=== PATIENT | male | born 1955 | race Caucasian/White ===

== ENCOUNTER → 2016-09-28 | Outpatient (CLI) | payer OTHER ==
[~2016-09-28] MED LIST: BACT800T5 PO
--- NOTE | 2016-09-28 16:49 | REP ---
Chest x-ray: Two views: History: Psoriasis vulgaris. Comparison chest x-ray 11/24/2014. Findings: There is new blunting of the left lateral pleural angle consistent with a small left subpulmonic pleural effusion. There is linear plate-like atelectasis versus fissural thickening in the left mid lung zone. A nodular density is seen in the left base, 8 mm in diameter. This has been seen previously. Chest CT study from 12/06/2014 reported no pulmonary nodule. The density is visible in the left posterior 9th rib. This is seen to be a bone island in the left 9th rib on that CT study. In any event it is unchanged. Lung ervin are otherwise clear. Impression: New subpulmonic left pleural effusion with fissural thickening and mild discoid atelectasis in the left midlung zone. Signed by Anthony Barron MD 09/28/2016 05:04 P
== END ==
LOC: M RAD 14:46
PROVIDERS: ATTEND Nurse Practitioner Family
DX: L40.0 Psoriasis vulgaris (principal); Z51.81 Encounter for therapeutic drug level monitoring; Z79.899 Other long term (current) drug therapy

== ENCOUNTER → 2016-10-23 | Outpatient (REF) | payer OTHER ==
[2016-10-23 16:37] LABS: INR 0.97
[2016-10-23 17:00] LABS: ALBUMIN 3.8 GM/DL (3.2-5.2); ALKALINE PHOSPHATASE 127 U/L (45-117); ALT/SGPT 30 U/L (12-78); ANION GAP 7 MEQ/L (8-16); AST/SGOT 18 U/L (15-37); BILIRUBIN,TOTAL 0.5 MG/DL (0.2-1.0); BLOOD UREA NITROGEN 15 MG/DL (7-18); CALCIUM LEVEL 9.1 MG/DL (8.5-10.1); CARBON DIOXIDE LEVEL 30 MEQ/L (21-32); CHLORIDE LEVEL 105 MEQ/L (98-107); CREATININE FOR GFR 1.08 MG/DL (0.70-1.30); GLOMERULAR FILTRATION RATE > 60.0 (>56); GLUCOSE, FASTING 87 MG/DL (70-105); POTASSIUM SERUM 4.5 MEQ/L (3.5-5.1); SODIUM LEVEL 142 MEQ/L (136-145); TOTAL PROTEIN 7.6 GM/DL (6.4-8.2)
[2016-10-23 17:45] LABS: MEAN CORPUSCULAR HEMOGLOBIN 29.4 pg (27.0-33.0); MEAN CORPUSCULAR HGB CONC 32.6 g/dl (32.0-36.5); MEAN CORPUSCULAR VOLUME 90.2 fl (80.0-96.0); RED CELL DISTRIBUTION WIDTH 13.4 % (11.5-14.5); WHITE BLOOD COUNT 8.5 K/mm3 (4.0-10.0)
== END ==
LOC: M SFHCADAM 14:11
PROVIDERS: ATTEND Family Medicine
DX: R91.8 Other nonspecific abnormal finding of lung field (principal); R06.09 Other forms of dyspnea

== ENCOUNTER → 2016-10-25 | Outpatient (CLI) | payer OTHER ==
[~2016-10-25] MED LIST changes: +ISOVUE-370 76% 100ML VIAL (Q9967) As Ordered ONE
--- NOTE | 2016-10-25 17:28 | REP ---
Clinical: Left lower chest pain. Technique: Axial contrast enhanced images from the thoracic inlet to the upper abdomen using 100 ml Isovue 370 intravenous contrast material with coronal and sagittal re-formations. Comparison: 12/06/2014 Findings: Hncoxjpj-ty-rzquy left pleural effusion with left lower lobe compressive atelectasis as well as plate-like atelectasis in the lingula. Right hemithorax appears well aerated and clear. No obvious pulmonary embolus. No pneumothorax. Heart and pericardium appear normal. No obvious axillary, hilar, or mediastinal adenopathy. Thoracic aorta is normal. Musculoskeletal structures are intact. Impression: Qucapwqs-du-csfgl left pleural effusion with left lower lobe and lingular atelectasis. No obvious pulmonary embolus. Signed by Rodrigo Lawson MD 10/25/2016 05:19 P
== END ==
LOC: M RAD 16:46
PROVIDERS: ATTEND Family Medicine
DX: J94.0 Chylous effusion (principal); J98.11 Atelectasis

== ENCOUNTER → 2016-11-06 | Outpatient (CLI) | payer OTHER ==
[~2016-11-06] MED LIST changes: +ACETAMINOPHEN 325 MG TAB As Ordered ONE; -ISOVUE-370 76% 100ML VIAL (Q9967) As Ordered ONE
--- NOTE | 2016-11-06 14:21 | REP ---
CHEST X-RAY: Two views. HISTORY: Post thoracentesis, left-sided effusion. Comparison chest x-ray September 28, 2016. Comparison chest CT study October 25, 2016. FINDINGS: The left pleural effusion appears improved. There is no evidence of pneumothorax or other complication. There is some linear discoid atelectasis and/or fibrosis in the left midlung zone. No other significant finding. Heart is not enlarged. IMPRESSION: Improved left pleural effusion post thoracentesis. No complication seen. Signed by Anthony Barron MD 11/06/2016 04:43 P
[2016-11-06 14:40] LABS: RBC PLEURAL FLUID < 10 (<10mm3 cells/uL); TNC PLEURAL FLUID 673 cells/uL (0-20)
[2016-11-06 14:43] LABS: BF DIFF IF INDICATED? YES (NO)
[2016-11-06 14:44] LABS: LDH, BODY FLUID 164 U/L (NOT ESTABLISHED); TOTAL PROTEIN, BODY FLUID 5.1 G/DL (NOT ESTABLISHED)
[2016-11-06 14:48] LABS: CC BF DIFF EXAM CYTOCENTRIFUGE
[2016-11-06 15:06] LABS: BASO % 0.5 % (0.0-1.0); EOS # 0.1 K/mm3 (0.0-0.50); EOS % 0.7 % (0.0-3.0); LARGE UNSTAINED CELL # 0.1 K/mm3 (0.0-0.4); LARGE UNSTAINED CELL % 0.6 % (0.0-4.0); LYMPH # 1.4 K/mm3 (1.5-4.5); LYMPH % 12.3 % (24.0-44.0); MEAN CORPUSCULAR HEMOGLOBIN 29.6 pg (27.0-33.0); MEAN CORPUSCULAR HGB CONC 33.1 g/dl (32.0-36.5); MEAN CORPUSCULAR VOLUME 89.2 fl (80.0-96.0); MONO # 0.6 K/mm3 (0.0-0.8); MONO % 5.4 % (0.0-5.0); NEUTROPHILS # 8.8 K/mm3 (1.8-7.7); NEUTROPHILS % 80.5 % (36.0-66.0); PLATELET COUNT, AUTOMATED 327 k/mm3 (150-450); RED CELL DISTRIBUTION WIDTH 13.3 % (11.5-14.5); WHITE BLOOD COUNT 10.9 K/mm3 (4.0-10.0)
[2016-11-06 15:20] LABS: ALBUMIN 3.6 GM/DL (3.2-5.2); ALBUMIN/GLOBULIN RATIO 1.16 (1.00-1.93); ALKALINE PHOSPHATASE 109 U/L (45-117); ALT/SGPT 23 U/L (12-78); ANION GAP 8 MEQ/L (8-16); AST/SGOT 18 U/L (15-37); BILIRUBIN,TOTAL 0.6 MG/DL (0.2-1.0); BLOOD UREA NITROGEN 18 MG/DL (7-18); CALCIUM LEVEL 8.7 MG/DL (8.5-10.1); CARBON DIOXIDE LEVEL 28 MEQ/L (21-32); CHLORIDE LEVEL 104 MEQ/L (98-107); CREATININE FOR GFR 1.06 MG/DL (0.70-1.30); GLOMERULAR FILTRATION RATE > 60.0 (>56); GLUCOSE, FASTING 95 MG/DL (70-105); POTASSIUM SERUM 4.7 MEQ/L (3.5-5.1); SODIUM LEVEL 140 MEQ/L (136-145); TOTAL PROTEIN 6.7 GM/DL (6.4-8.2)
--- NOTE | 2016-11-06 17:47 | REP ---
ULTRASOUND GUIDED LEFT THORACENTESIS: The procedure was performed under the direct supervision of Dr. Barron. The risks and benefits of the procedure were explained to the patient and informed consent was obtained. The left pleural effusion was localized using ultrasound guidance. The skin was prepped and draped in a sterile fashion. 1% Lidocaine was used as a local anesthetic. An 8-Wolof txqyk-niws-fqiq catheter was inserted using trocar technique. 1095 mL of elton colored fluid was withdrawn and sent to the lab. Once the catheter was pulled out the patient did have a vasovagal reaction. He became diaphoretic and bradycardic. The patient was placed on 3 liters of oxygen via nasal cannula and placed in Trendelenburg position. The patient never lost consciousness. After a few minutes the patient's vital signs became stable. The patient tolerated the procedure well and there were no immediate complications. After the appropriate amount of monitored convalesce the patient was discharged from the department. Reviewed by DHAVAL Israel 11/07/2016 08:33 AEdited and Signed by Anthony Barron MD 11/07/2016 02:44 P
== END ==
LOC: M RADPRO 12:14
PROVIDERS: ATTEND Family Medicine
DX: R84.9 Unspecified abnormal finding in specimens from respiratory organs and thorax (principal); J90 Pleural effusion, not elsewhere classified; R55 Syncope and collapse; E78.5 Hyperlipidemia, unspecified; R06.09 Other forms of dyspnea; N40.0 Benign prostatic hyperplasia without lower urinary tract symptoms; F17.210 Nicotine dependence, cigarettes, uncomplicated; Z79.899 Other long term (current) drug therapy

== ENCOUNTER → 2016-11-13 | Outpatient (CLI) | payer OTHER ==
[~2016-11-13] MED LIST changes: -ACETAMINOPHEN 325 MG TAB As Ordered ONE
--- NOTE | 2016-11-13 12:06 | REP ---
TWO VIEW CHEST: Two views of the chest are performed. Comparison 11/06/2016. Small left effusion has mildly increased since the prior exam. Adjacent parenchymal opacities in the left lung base are unchanged. Right lung is clear. Heart is normal in size. Mediastinal silhouette is unchanged. IMPRESSION: Mild increase in left pleural effusion. No change in adjacent left basilar parenchymal opacities. Signed by Abdirahman Rutherford MD 11/13/2016 08:09 P
== END ==
LOC: M RAD 11:07
PROVIDERS: ATTEND Physician Assistant
DX: J90 Pleural effusion, not elsewhere classified (principal)

== ENCOUNTER → 2016-11-25 | Outpatient (CLI) | payer OTHER | LOC: M LAB 16:02 | PROVIDERS: ATTEND Urology | DX: Z12.5 Encounter for screening for malignant neoplasm of prostate (principal) ==

== ENCOUNTER → 2016-11-28 | Outpatient (REF) | payer OTHER | LOC: M SMT 12:57 | PROVIDERS: ATTEND Urology | DX: N40.1 Benign prostatic hyperplasia with lower urinary tract symptoms (principal) ==

== ENCOUNTER → 2017-03-07 | Outpatient (CLI) | payer OTHER ==
--- NOTE | 2017-03-07 13:08 | REP ---
Clinical: Pain. Technique: AP, lateral, bilateral oblique views left foot . Findings: The osseous structures and joint spaces demonstrate age-related changes. There is no evidence for acute fracture or dislocation. Surrounding soft tissues are unremarkable. No subcutaneous emphysema or radiodense foreign body. Impression: Age-related changes noted. No obvious acute fracture dislocation. Signed by Rodrigo Lawson MD 03/07/2017 12:59 P
== END ==
LOC: M RAD 12:05
PROVIDERS: ATTEND Physician Assistant
DX: M79.675 Pain in left toe(s) (principal)

== ENCOUNTER → 2017-03-19 | Outpatient (CLI) | payer OTHER ==
--- NOTE | 2017-03-19 17:26 | REP ---
Left knee series: Five views. History: Left medial knee pain. Findings: Five views of the left knee demonstrate some nonarticular spurring at the superior pole of the patella at the quadriceps tendon insertion. There is prepatellar and patellar tendon soft tissue swelling. This may reflect patellar tendonitis. Bones, joints, soft tissues are otherwise unremarkable. Impression: Prepatellar swelling. Patellar tendon swelling. Quadriceps tendon insertion spurring. Signed by Anthony Barron MD 03/20/2017 09:24 A
== END ==
LOC: M ADAMS 14:59
PROVIDERS: ATTEND Family Medicine
DX: M70.42 Prepatellar bursitis, left knee (principal); M76.52 Patellar tendinitis, left knee; L40.50 Arthropathic psoriasis, unspecified; E78.5 Hyperlipidemia, unspecified; E55.9 Vitamin D deficiency, unspecified

== ENCOUNTER → 2017-03-19 | Outpatient (REF) | payer OTHER ==
[2017-03-19 19:46] LABS: ALBUMIN 3.5 GM/DL (3.2-5.2); ALBUMIN/GLOBULIN RATIO 0.92 (1.00-1.93); ALKALINE PHOSPHATASE 111 U/L (45-117); ALT/SGPT 22 U/L (12-78); ANION GAP 6 MEQ/L (8-16); AST/SGOT 14 U/L (15-37); BILIRUBIN,TOTAL 0.5 MG/DL (0.2-1.0); BLOOD UREA NITROGEN 18 MG/DL (7-18); CALCIUM LEVEL 9.1 MG/DL (8.8-10.2); CARBON DIOXIDE LEVEL 30 MEQ/L (21-32); CHLORIDE LEVEL 104 MEQ/L (98-107); CHOLESTEROL LEVEL 128 MG/DL (<200); FREE T4 1.22 NG/DL (0.76-1.46); GLOMERULAR FILTRATION RATE > 60.0 (>49); GLUCOSE, FASTING 94 MG/DL (80-110); POTASSIUM SERUM 4.5 MEQ/L (3.5-5.1); SODIUM LEVEL 140 MEQ/L (136-145); TOTAL PROTEIN 7.3 GM/DL (6.4-8.2); TRIGLYCERIDES LEVEL 64 MG/DL (<150)
[2017-03-19 20:23] LABS: MEAN CORPUSCULAR HEMOGLOBIN 29.6 pg (27.0-33.0); MEAN CORPUSCULAR HGB CONC 33.8 g/dl (32.0-36.5); MEAN CORPUSCULAR VOLUME 87.7 fl (80.0-96.0); RED CELL DISTRIBUTION WIDTH 13.2 % (11.5-14.5); WHITE BLOOD COUNT 10.1 K/mm3 (4.0-10.0)
== END ==
LOC: M SFHCADAM 14:53
PROVIDERS: ATTEND Family Medicine
DX: L40.50 Arthropathic psoriasis, unspecified (principal); E78.5 Hyperlipidemia, unspecified; E55.9 Vitamin D deficiency, unspecified

== ENCOUNTER → 2017-04-18 | Outpatient (CLI) | payer OTHER ==
--- NOTE | 2017-04-18 18:17 | REP ---
CHEST, TWO VIEWS: HISTORY: Pleurisy. COMPARISON: 12/24/2016 There has been a decrease in the left lower lobe infiltrate compared to the previous study. Curvilinear densities are present in the left lower lobe consistent with scar. A small left pleural effusion is present, unchanged compared to the previous study. The right lung is clear. The heart is normal in size. The pulmonary vasculature is normal in appearance. The bony structure is intact. IMPRESSION: 1. There has been a decrease in the left lower lobe infiltrate compared to the previous study. Curvilinear densities are present in the left lower lobe consistent with scar. 2. Small left pleural effusion, unchanged compared to the previous study. Signed by Baldo Noriega MD 04/19/2017 08:27 A
== END ==
LOC: M RAD 15:18
PROVIDERS: ATTEND Internal Medicine Pulmonary Disease
DX: R09.1 Pleurisy (principal)

== ENCOUNTER → 2017-09-17 | Outpatient (CLI) | payer OTHER | LOC: M SMT 14:42 | DX: J90 Pleural effusion, not elsewhere classified (principal) ==

== ENCOUNTER → 2017-12-19 | Outpatient (CLI) | payer OTHER ==
[2017-12-19 10:53] LABS: BASO # 0.1 10^3/uL (0.0-0.2); BASO % 0.5 % (0.0-1.0); EOS # 0.2 10^3/uL (0.0-0.50); EOS % 1.6 % (0.0-3.0); HEMATOCRIT 43.9 % (42.0-52.0); HEMOGLOBIN 14.5 g/dl (13.5-17.5); IMMATURE GRANULOCYTE % 0.3 % (0-3.0); LYMPH % 20.9 % (24.0-44.0); MEAN CORPUSCULAR HEMOGLOBIN 29.6 pg (27.0-33.0); MEAN CORPUSCULAR VOLUME 89.6 fl (80.0-96.0); MONO # 0.9 10^3/uL (0.0-0.8); MONO % 9.6 % (0.0-5.0); NEUTROPHILS # 6.4 10^3/uL (1.8-7.7); NEUTROPHILS % 67.1 % (36.0-66.0); PLATELET COUNT, AUTOMATED 286 10^3/uL (150-450); RED CELL DISTRIBUTION WIDTH 13.6 % (11.5-14.5); WHITE BLOOD COUNT 9.6 10^3/uL (4.0-10.0)
[2017-12-19 11:17] LABS: ERYTHROCYTE SEDIMENTATION RATE 13 mm/hr (0-20)
[2017-12-19 11:19] LABS: ALBUMIN 3.9 GM/DL (3.2-5.2); ALT/SGPT 30 U/L (12-78); AST/SGOT 18 U/L (7-37); C REACTIVE PROTEIN QUANTITATIV 3.87 MG/DL (0.00-0.30); CREATININE FOR GFR 1.14 MG/DL (0.70-1.30); GLOMERULAR FILTRATION RATE > 60.0 (>49)
== END ==
LOC: M LAB 10:03
DX: Z51.81 Encounter for therapeutic drug level monitoring (principal); L40.59 Other psoriatic arthropathy; Z79.899 Other long term (current) drug therapy
CPT/HCPCS: 84460

== ENCOUNTER → 2017-12-19 | Outpatient (CLI) | payer OTHER ==
[2017-12-21 00:06] LABS: PSA TOTAL 1.6 ng/mL (0.0-4.0)
== END ==
LOC: M LAB 10:12
DX: N40.1 Benign prostatic hyperplasia with lower urinary tract symptoms (principal)
CPT/HCPCS: 84154

== ENCOUNTER → 2018-01-02 | Outpatient (CLI) | payer OTHER ==
[2018-01-02 10:37] LABS: ESTRADIOL 25.6 PG/ML (<39.8)
[2018-01-04 00:07] LABS: SEX HORMONE BINDING GLOBULIN 41.5 nmol/L (19.3-76.4); TESTOSTERONE FREE (DIRECT) 5.4 pg/mL (6.6-18.1)
== END ==
LOC: M SMT 08:15
DX: E29.1 Testicular hypofunction (principal)
CPT/HCPCS: 84403

== ENCOUNTER → 2018-03-19 | Outpatient (CLI) | payer OTHER | LOC: M RAD 12:59 | DX: J90 Pleural effusion, not elsewhere classified (principal) ==

== ENCOUNTER → 2018-04-17 | Outpatient (CLI) | payer OTHER ==
[2018-04-18 14:49] LABS: TESTOSTERONE FREE (DIRECT) 6.4 pg/mL (6.6-18.1)
== END ==
LOC: M SMT 10:27
DX: E29.1 Testicular hypofunction (principal)
CPT/HCPCS: 84403

== ENCOUNTER → 2018-04-17 | Outpatient (CLI) | payer OTHER ==
[2018-04-17 13:49] LABS: HEMATOCRIT 46.8 % (42.0-52.0); HEMOGLOBIN 15.4 g/dl (13.5-17.5); MEAN CORPUSCULAR HEMOGLOBIN 29.8 pg (27.0-33.0); MEAN CORPUSCULAR HGB CONC 32.9 g/dl (32.0-36.5); MEAN CORPUSCULAR VOLUME 90.5 fl (80.0-96.0); PLATELET COUNT, AUTOMATED 330 10^3/uL (150-450); RED BLOOD COUNT 5.17 10^6/uL (4.30-6.10); RED CELL DISTRIBUTION WIDTH 13.1 % (11.5-14.5); WHITE BLOOD COUNT 8.3 10^3/uL (4.0-10.0)
[2018-04-17 14:33] LABS: ALBUMIN 3.5 GM/DL (3.2-5.2); ALKALINE PHOSPHATASE 99 U/L (45-117); ALT/SGPT 26 U/L (12-78); ANION GAP 3 MEQ/L (8-16); AST/SGOT 20 U/L (7-37); BILIRUBIN,TOTAL 0.5 MG/DL (0.2-1.0); BLOOD UREA NITROGEN 18 MG/DL (7-18); CALCIUM LEVEL 9.1 MG/DL (8.8-10.2); CARBON DIOXIDE LEVEL 32 MEQ/L (21-32); CHLORIDE LEVEL 108 MEQ/L (98-107); CHOLESTEROL LEVEL 231 MG/DL (<200); CHOLESTEROL RISK RATIO 5.775 (<5); CREATININE FOR GFR 1.14 MG/DL (0.70-1.30); GLOMERULAR FILTRATION RATE > 60.0 (>49); GLUCOSE, FASTING 90 MG/DL (70-100); HDL CHOLESTEROL 40 MG/DL (>40); LDL CHOLESTEROL 179.4 MG/DL (<100); NON-HDL-C 191 MG/DL; POTASSIUM SERUM 5.1 MEQ/L (3.5-5.1); SODIUM LEVEL 143 MEQ/L (136-145); TRIGLYCERIDES LEVEL 58 MG/DL (<150)
[2018-04-17 14:40] LABS: TOTAL 25(OH) VITAMIN D 34.6 NG/ML (30.0-100.0)
== END ==
LOC: M SMT 10:24
DX: L40.50 Arthropathic psoriasis, unspecified (principal); E78.5 Hyperlipidemia, unspecified; E55.9 Vitamin D deficiency, unspecified
CPT/HCPCS: 80053

== ENCOUNTER → 2018-07-18 | Outpatient (CLI) | payer OTHER ==
[2018-07-19 10:41] LABS: TESTOSTERONE FREE (DIRECT) 9.3 pg/mL (6.6-18.1)
[2018-07-21 00:06] LABS: QuantiFERON-TB Gold Plus Negative (Negative)
== END ==
LOC: M LAB 08:47
DX: E29.1 Testicular hypofunction (principal)
CPT/HCPCS: 84403

== ENCOUNTER → 2018-09-23 | Day surgery (SDC) | payer OTHER ==
[~2018-09-23] VITALS: Ht 177.8 cm; Wt 77.1 kg
[~2018-09-23] MED LIST changes: +ANDR1GEL TD; +ATOR1TAB19 PO; +CENTTAB16 PO; +COSE1INJ SC; +FLOM0.4C39 PO; +LEXA1TAB PO; +LIDOCAINE 2% INJ 100 MG/5 ML SYRINGE As Ordered ONE; +PROPOFOL 200 MG/20 ML VIAL As Ordered ONE; +VITA-176 PO
== END | disposition home or self-care (01) ==
LOC: M OPP 09:35
PROVIDERS: ATTEND Internal Medicine Gastroenterology
DX: Z12.11 Encounter for screening for malignant neoplasm of colon (principal); Z53.8 Procedure and treatment not carried out for other reasons

== ENCOUNTER → 2018-10-11 | Outpatient (CLI) | payer OTHER ==
[~2018-10-11] MED LIST changes: -LIDOCAINE 2% INJ 100 MG/5 ML SYRINGE As Ordered ONE; -PROPOFOL 200 MG/20 ML VIAL As Ordered ONE
--- NOTE | 2018-10-11 15:53 | REP ---
Clinical: Pleural effusion. Technique: PA and lateral. Comparison: 03/19/2018. Findings: Pleuroparenchymal changes involving the left lower lung zone are essentially unchanged when compared to 04/18/2017. A qupsfrgo-bp-[id number] left pleural effusion along with scattered fibro atelectatic changes and possible subpleural nodule are again suggested. No pneumothorax. Right hemithorax is well-aerated and clear. Cardiac silhouette appears normal. Impression: Findings suggest moderate to large left pleural effusion along with chronic fibroatelectatic changes to the left base. Electronically Signed by Rodrigo Lawson MD 10/11/2018 03:44 P
== END ==
LOC: M RAD 15:24 → M LAB 15:24
PROVIDERS: ATTEND Internal Medicine Pulmonary Disease
DX: J90 Pleural effusion, not elsewhere classified (principal)

== ENCOUNTER → 2018-11-13 | Outpatient (REF) | payer OTHER ==
[2018-11-13 12:37] LABS: HEMATOCRIT 48.1 % (42.0-52.0); HEMOGLOBIN 15.4 g/dl (13.5-17.5); MEAN CORPUSCULAR HEMOGLOBIN 28.5 pg (27.0-33.0); MEAN CORPUSCULAR VOLUME 88.9 fl (80.0-96.0); PLATELET COUNT, AUTOMATED 339 10^3/uL (150-450); RED BLOOD COUNT 5.41 10^6/uL (4.30-6.10)
[2018-11-13 13:28] LABS: ALT/SGPT 28 U/L (12-78); BILIRUBIN,TOTAL 0.6 MG/DL (0.2-1.0); BLOOD UREA NITROGEN 16 MG/DL (7-18); CALCIUM LEVEL 9.2 MG/DL (8.8-10.2); CARBON DIOXIDE LEVEL 29 MEQ/L (21-32); CHLORIDE LEVEL 104 MEQ/L (98-107); CHOLESTEROL LEVEL 163 MG/DL (<200); CHOLESTEROL RISK RATIO 4.075 (<5); CREATININE FOR GFR 1.15 MG/DL (0.70-1.30); GLOMERULAR FILTRATION RATE > 60.0 (>49); GLUCOSE, FASTING 96 MG/DL (70-100); HDL CHOLESTEROL 40 MG/DL (>40); LDL CHOLESTEROL 111 MG/DL (<100); NON-HDL-C 123 MG/DL; SODIUM LEVEL 141 MEQ/L (136-145); TOTAL PROTEIN 7.7 GM/DL (6.4-8.2); TRIGLYCERIDES LEVEL 60 MG/DL (<150)
[2018-11-14 14:21] LABS: TESTOSTERONE FREE (DIRECT) 5.3 pg/mL (6.6-18.1)
== END ==
LOC: M SFHCADAM 10:33
PROVIDERS: ATTEND Family Medicine
DX: L40.50 Arthropathic psoriasis, unspecified (principal); E78.5 Hyperlipidemia, unspecified; E29.1 Testicular hypofunction

== ENCOUNTER → 2019-02-02 | Outpatient (CLI) | payer OTHER ==
[2019-02-02 12:22] LABS: HEMATOCRIT 45.5 % (42.0-52.0); HEMOGLOBIN 14.9 g/dl (13.5-17.5); MEAN CORPUSCULAR HGB CONC 32.7 g/dl (32.0-36.5); MEAN CORPUSCULAR VOLUME 91.5 fl (80.0-96.0); PLATELET COUNT, AUTOMATED 353 10^3/uL (150-450); RED BLOOD COUNT 4.97 10^6/uL (4.30-6.10); WHITE BLOOD COUNT 9.1 10^3/uL (4.0-10.0)
[2019-02-02 12:49] LABS: BLOOD UREA NITROGEN 17 MG/DL (7-18); CALCIUM LEVEL 8.6 MG/DL (8.8-10.2); CARBON DIOXIDE LEVEL 31 MEQ/L (21-32); CHLORIDE LEVEL 104 MEQ/L (98-107); GLOMERULAR FILTRATION RATE > 60.0 (>49); GLUCOSE, FASTING 101 MG/DL (70-100); POTASSIUM SERUM 4.6 MEQ/L (3.5-5.1); SODIUM LEVEL 142 MEQ/L (136-145)
[2019-02-04 10:12] LABS: TESTOSTERONE FREE (DIRECT) 7.5 pg/mL (6.6-18.1)
== END ==
LOC: M LAB 11:41
PROVIDERS: ATTEND Nurse Practitioner Women's Health
DX: Z12.5 Encounter for screening for malignant neoplasm of prostate (principal); E29.1 Testicular hypofunction
CPT/HCPCS: 36415; 80048; 84402; 84403; 85027; G0103

== ENCOUNTER → 2019-03-18 | Outpatient (CLI) | payer OTHER ==
[2019-03-18 13:35] LABS: ALBUMIN 3.5 GM/DL (3.2-5.2); BILIRUBIN,DIRECT 0.2 MG/DL (0.0-0.2); BILIRUBIN,TOTAL 0.5 MG/DL (0.2-1.0); TOTAL PROTEIN 7.5 GM/DL (6.4-8.2)
== END ==
LOC: M LAB 12:16
PROVIDERS: ATTEND Nurse Practitioner Family
DX: Z51.81 Encounter for therapeutic drug level monitoring (principal); Z79.899 Other long term (current) drug therapy; L40.0 Psoriasis vulgaris

== ENCOUNTER → 2019-04-07 | Outpatient (CLI) | payer OTHER ==
--- NOTE | 2019-04-07 12:38 | REP ---
Low-dose lung screening CT of the chest : The study is performed without IV contrast. Images are presented at lung windowing only. Comparison is 10/25/2016. There are no lung nodules or masses. There is a large chronic left pleural effusion, unchanged. There is chronic discoid atelectasis versus parenchymal scarring versus combination in the right lower lobe and in the lingula, similar to the prior study. Impression: Category one low-dose lung screening chest CT. The probability of malignancy is less than 1%. Depending on risk factors consider annual follow-up low-dose lung screening chest CT. Electronically Signed by Abdirahman Saunders MD 04/07/2019 12:30 P
== END ==
LOC: M RAD 09:28
PROVIDERS: ATTEND Internal Medicine Pulmonary Disease
DX: Z12.2 Encounter for screening for malignant neoplasm of respiratory organs (principal); F17.210 Nicotine dependence, cigarettes, uncomplicated; J90 Pleural effusion, not elsewhere classified; R91.8 Other nonspecific abnormal finding of lung field

== ENCOUNTER → 2019-05-11 | Outpatient (CLI) | payer OTHER ==
[2019-05-11 12:43] LABS: HEMATOCRIT 41.5 % (42.0-52.0); HEMOGLOBIN 13.5 g/dl (13.5-17.5); MEAN CORPUSCULAR HEMOGLOBIN 27.7 pg (27.0-33.0); MEAN CORPUSCULAR HGB CONC 32.5 g/dl (32.0-36.5); MEAN CORPUSCULAR VOLUME 85.2 fl (80.0-96.0); PLATELET COUNT, AUTOMATED 398 10^3/uL (150-450); RED BLOOD COUNT 4.87 10^6/uL (4.30-6.10); WHITE BLOOD COUNT 9.7 10^3/uL (4.0-10.0)
[2019-05-14 00:06] LABS: TESTOSTERONE FREE (DIRECT) 4.7 pg/mL (6.6-18.1)
== END ==
LOC: M LAB 12:22
PROVIDERS: ATTEND Nurse Practitioner Women's Health
DX: E29.1 Testicular hypofunction (principal)

== ENCOUNTER → 2019-07-09 | Outpatient (REF) | payer OTHER ==
[2019-07-09 15:59] LABS: BASO # 0.1 10^3/uL (0.0-0.2); BASO % 0.8 % (0.0-1.0); EOS # 0.1 10^3/uL (0.0-0.5); EOS % 0.6 % (0.0-3.0); HEMATOCRIT 38.6 % (42.0-52.0); HEMOGLOBIN 12.1 g/dl (13.5-17.5); LYMPH % 9.3 % (24.0-44.0); MEAN CORPUSCULAR HGB CONC 31.3 g/dl (32.0-36.5); MEAN CORPUSCULAR VOLUME 82.8 fl (80.0-96.0); MONO # 0.9 10^3/uL (0.0-0.8); MONO % 8.5 % (0.0-5.0); NEUTROPHILS # 8.6 10^3/uL (1.5-8.5); NEUTROPHILS % 80.4 % (36.0-66.0); PLATELET COUNT, AUTOMATED 583 10^3/uL (150-450); RED BLOOD COUNT 4.66 10^6/uL (4.30-6.10); WHITE BLOOD COUNT 10.7 10^3/uL (4.0-10.0)
[2019-07-09 16:15] LABS: ALBUMIN 3.1 GM/DL (3.2-5.2); ALT/SGPT 20 U/L (12-78); BILIRUBIN,TOTAL 0.4 MG/DL (0.2-1.0); BLOOD UREA NITROGEN 18 MG/DL (7-18); CALCIUM LEVEL 9.6 MG/DL (8.8-10.2); CARBON DIOXIDE LEVEL 30 MEQ/L (21-32); CHLORIDE LEVEL 102 MEQ/L (98-107); CPK CREATINE PHOSPHOKINASE 45 U/L (39-308); CREATININE FOR GFR 0.97 MG/DL (0.70-1.30); FOLATE 18.1 NG/ML; FREE T4 1.28 NG/DL (0.76-1.46); GLOMERULAR FILTRATION RATE > 60.0 (>49); GLUCOSE, FASTING 89 MG/DL (70-100); POTASSIUM SERUM 5.2 MEQ/L (3.5-5.1); SODIUM LEVEL 138 MEQ/L (136-145); TOTAL 25(OH) VITAMIN D 40.8 NG/ML (30.0-100.0); TOTAL PROTEIN 7.8 GM/DL (6.4-8.2); VITAMIN B12 LEVEL 560 PG/ML
== END ==
LOC: M SFHCADAM 13:38
PROVIDERS: ATTEND Physician Assistant
DX: R63.4 Abnormal weight loss (principal); M54.2 Cervicalgia; R61 Generalized hyperhidrosis; M62.81 Muscle weakness (generalized)

== ENCOUNTER → 2019-07-16 | Outpatient (CLI) | payer OTHER ==
[~2019-07-16] MED LIST changes: +ELIQ5TAB PO; +FERR325T18 PO; +IBUP200T45 PO; +NICO7PA TD; +TEST1GEL8 TD; +[UNRECOGNIZED DRUG - CODE] SC
[2019-07-16 12:49] LABS: C REACTIVE PROTEIN QUANTITATIV 10.6 MG/DL (0.00-0.30); PERCENT SATURATION 7.7 % (19.7-50.0)
== END ==
LOC: M LAB 11:11
PROVIDERS: ATTEND Physician Assistant
DX: R06.02 Shortness of breath (principal); R07.1 Chest pain on breathing; D64.9 Anemia, unspecified

== ENCOUNTER 2019-07-17 09:00 | Inpatient (IN) | payer OTHER ==
[~2019-07-17] VITALS: Ht 177.8 cm; Wt 67.4 kg
[~2019-07-17 09:00] MED LIST changes: -ELIQ5TAB PO; -FERR325T18 PO; -IBUP200T45 PO; -NICO7PA TD; -TEST1GEL8 TD; -[UNRECOGNIZED DRUG - CODE] SC
[2019-07-17] MEDS ORDERED: ISOVUE-370 76% 100ML VIAL (Q9967) As Ordered ONE (09:14)
--- NOTE | 2019-07-17 10:54 | REP ---
CT PULMONARY ANGIOGRAM: With IV contrast. HISTORY: Shortness of breath and chest pain. COMPARISON STUDIES: Comparison low-dose screening chest CT April 07, 2019. Comparison CT angio study October 25, 2016. CONTRAST DOSE: 75 mL of Isovue [address] TECHNIQUE: Helical scanning is acquired and overlapping 1.5 mm and contiguous 3 mm axial images are reformatted. In addition, maximum intensity projection and multiplanar re-formation images are generated in sagittal and coronal imaging projections. CT PULMONARY ANGIOGRAPHIC FINDINGS: There is good opacification of the pulmonary arterial tree. There is a linear filling defect in the right lower lobe subsegmental pulmonary arterial tree to the posterior basal segment consistent with pulmonary embolism. This is a new finding compared with the 2017 prior study. No other pulmonary embolic filling defect is seen. The thoracic aorta shows no evidence of aneurysm or dissection. The left vertebral artery takes a direct aortic origin. Pulmonary parenchyma shows mild diffuse alveolar opacity pattern consistent with mild alveolar edema. There is a moderate size left pleural effusion with visceral and parietal pleural thickening and enhancement. This is a chronic finding although the visceral and parietal pleural thickening enhancement are new compared with the 2017 prior study. There are band-like opacities in the left lung base, which may be pleural thickening in the major fissure and/or atelectasis. There is some somewhat nodular pleural thickening in the remainder of the left hemithorax and there is new mediastinal lymphadenopathy with precarinal, perivascular, AP window, and subcarinal nodes. There are borderline sized bilateral hilar nodes. There is an internal mammary node on the left and there are several lymph nodes in the epicardial fat in the left anterior inferior chest. These are a change from prior study. Mildly enlarged retrocrural lymph nodes are seen. There is evidence of periaortic upper abdominal lymphadenopathy as well. There is a celiac axis lymph node measuring 2.7 x 1.7 cm. No adrenal mass is appreciated. There is a small pericardial effusion. No right pleural effusion is seen. IMPRESSION: Study is positive for a small pulmonary embolus in the right lower lobe subsegmental pulmonary arterial tree. Findings suggest mild diffuse alveolar edema pattern in the lung ervin. Moderate-sized left pleural effusion again noted. New development of nodular pleural thickening in the remainder of the left hemithorax. There is coarse fairly thick visceral and parietal pleural thickening and enhancement. There is new mediastinal, hilar, retrocrural, internal mammary, and upper abdominal lymphadenopathy suspicious of metastatic disease and/or lymphoma. Electronically Signed by Anthony Barron MD 07/17/2019 01:52 P
[2019-07-17 11:20] VITALS: BP 132/60
[2019-07-17] MEDS ORDERED: TEST1GEL8 TD (11:39)
[2019-07-17] MEDS ORDERED: IBUP200T45 PO (11:39)
[2019-07-17] MEDS ORDERED: [UNRECOGNIZED DRUG - CODE] SC (11:39)
[2019-07-17 12:02] LABS: BASO % 0.3 % (0.0-1.0); EOS % 0.3 % (0.0-3.0); HEMATOCRIT 38.7 % (42.0-52.0); HEMOGLOBIN 12.1 g/dl (13.5-17.5); LYMPH # 0.6 10^3/uL (1.5-5.0); LYMPH % 5.4 % (24.0-44.0); MEAN CORPUSCULAR HEMOGLOBIN 25.8 pg (27.0-33.0); MEAN CORPUSCULAR HGB CONC 31.3 g/dl (32.0-36.5); MEAN CORPUSCULAR VOLUME 82.5 fl (80.0-96.0); MONO # 0.7 10^3/uL (0.0-0.8); MONO % 6.2 % (0.0-5.0); NEUTROPHILS # 10.3 10^3/uL (1.5-8.5); NEUTROPHILS % 87.3 % (36.0-66.0); PLATELET COUNT, AUTOMATED 502 10^3/uL (150-450); RED BLOOD COUNT 4.69 10^6/uL (4.30-6.10); WHITE BLOOD COUNT 11.9 10^3/uL (4.0-10.0)
[2019-07-17 12:12] LABS: INR 1.09; PROTHROMBIN TIME 13.8 SECONDS (11.8-14.0)
[2019-07-17 12:13] LABS: PARTIAL THROMBOPLASTIN TIME 30.8 SECONDS (25.0-38.4)
[2019-07-17 12:21] LABS: ALBUMIN 2.9 GM/DL (3.2-5.2); ALT/SGPT 18 U/L (12-78); BILIRUBIN,TOTAL 0.4 MG/DL (0.2-1.0); BLOOD UREA NITROGEN 18 MG/DL (7-18); CARBON DIOXIDE LEVEL 29 MEQ/L (21-32); CHLORIDE LEVEL 104 MEQ/L (98-107); CREATININE FOR GFR 0.94 MG/DL (0.70-1.30); GLOMERULAR FILTRATION RATE > 60.0 (>49); GLUCOSE, FASTING 116 MG/DL (70-100); POTASSIUM SERUM 4.2 MEQ/L (3.5-5.1); SODIUM LEVEL 137 MEQ/L (136-145); TOTAL PROTEIN 7.1 GM/DL (6.4-8.2)
[2019-07-17] MEDS ORDERED: LIDOCAINE 1% MDV 20ML VIAL As Ordered ONE (14:16)
--- NOTE | 2019-07-17 14:30 | CR ---
DATE OF CONSULTATION: 07/17/2019 DATE OF CONSULTATION: 07/17/2019 I was asked by Dr. Keller to evaluate Mr. Willis for an abnormal chest CT scan. Mr. Willis is a 63-year-old male who has a known history of the left pleural effusion for which he had for thoracentesis done in 2016. 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 He also underwent a lung cancer screening chest CT scan in March of this year that did not show any new abnormalities and an unchanged pleural effusion. Mr. Willis has been working with . Fabienne Cornelius over the past week or so because of new symptoms. He tells me over the past 2 to 3 months, he has had increased fatigue and tiredness where he is sleeping 14-16 hours a day. He has had a 40 pound weight loss over the same time from 180 to now in the 140s. Despite the weight loss, he has had a good appetite. He has also noted back pain, particularly on the left side. In addition to feeling tired, he feels generalized weakness. He has also noted drenching night sweats most nights over the past 6 months. These sweats are to the point that he has to get up and change his clothing and bedding. Over the past month he has noted increasing shortness of breath. 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 About a month ago he refereed six games without difficulty. Now he feels short of breath walking up a flight of stairs. He has had no chest pain or pressure. No paroxysmal nocturnal dyspnea, orthopnea. He has postnasal drip but that is chronic. The only cough he has is in the morning. No wheezing. No gastroesophageal reflux disease (GERD) symptoms. He has had no lower extremity edema or injury to his lower extremities. No fevers or chills. He was diagnosed with a pneumonia many years ago, which was associated with a fractured rib from coughing so hard. He has not been diagnosed with frequent bronchitis. No history suggestive of asthma. ALLERGIES: NO KNOWN DRUG ALLERGIES. MEDICATIONS ON ADMISSION: - atorvastatin 10 mg by mouth at night - vitamin D3 1000 mg by mouth daily - Lexapro 10 mg by mouth daily - ibuprofen 10 mg by mouth twice a day - Taltz auto injector 80 mg subcutaneously every 2 weeks - Centrum silver one by mouth daily - Flomax 0.4 mg by mouth at night - testosterone 75 grams two applications transdermal daily PAST MEDICAL HISTORY: 1. Left lower lobe loculated effusion, known since 2017. A. Lymphocytic exudate. 2. Psoriasis/psoriatic arthritis. 3. Dyslipidemia. 4. Benign prostatic hypertrophy (BPH). 5. Prostatic hypertrophy. 6. Vitamin D deficiency. 7. Arthritis. 8. Testosterone deficiency. 9. Tobacco usage, ongoing. SOCIAL HISTORY: Mr. Willis is a smoker having started at age 22 and averaging one and a half packs per day. This gives him an approximate 60 pack year history. He does not drink alcohol. No street drug usage. He does not vape. 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 He considers himself semi-retired. FAMILY HISTORY: His father is , had diabetes mellitus and cirrhosis. His mother is alive with no known significant medical problems. He has two daughters with no significant medical problems. No known family history of cancer or thromboembolic disease. REVIEW OF SYSTEMS: As per HPI. Remainder of pertinent review of systems are negative. PHYSICAL EXAMINATION GENERAL: Mr. Willis is lying in bed no acute distress. He can complete full sentences. No cough on evaluation. VITAL SIGNS: HEENT: Anicteric, nares patent bilaterally. Moist mucosa. Oropharynx clear. No lesions, dentures, Mallampati 1-2. Face is normal. NECK: Supple, without jugular venous distention (JVD), thyromegaly or masses, trachea is midline. LYMPH: Without cervical or supraclavicular lymphadenopathy. CHEST: Mild increased AP diameter. LUNGS: Slightly asymmetric excursion with decreased excursion on the left. The right lung is clear and without crackles, wheeze or rhonchi. The left lung shows absent breath sounds at the base with dullness to percussion over the same region, but is otherwise clear superior to that region with no wheeze, crackle or rhonchi. No change in examination on forced maneuver. Normal I:E. No accessory muscle usage or retractions. CARDIOVASCULAR: Regular rate and rhythm with a normal S1-S2, no murmur or gallop appreciated. ABDOMEN: Positive bowel sounds, soft, nondistended, nontender, no hepatosplenomegaly or masses appreciated. EXTREMITIES: Warm and well-perfused, without clubbing, cyanosis or edema. No calf tenderness bilaterally. LABORATORY DATA: CBC shows a hemoglobin of 12.1, hematocrit 38.2, platelet count 502,000, white blood cell count 11,900 with a differential of 87% neutrophils, 5% lymphocytes, 6% monocytes. PT 13.8, INR 1.09, PTT 30.8. Chemistry shows sodium 137, potassium 4.2, chloride 104, bicarbonate 29, anion gap 4, BUN 18, creatinine 0.9, glucose 116, calcium 9.0, total bilirubin 0.4, AST 13, ALT 18, alkaline phosphatase 106, total protein 7.1. I reviewed his chest CT scan as well as report. That CT scan showed normal-appearing cardiac silhouette and pulmonary vascular shadows. There is a left hemithorax, pleural effusion which per my view has not changed in size compared to his lung cancer screening study done in March 2019. There is a rind around the effusion which is new compared to 2017. There is pleural-based either thickening or mass that has increased in size compared to the March 2019 [address] scan. There are also mediastinal and hilar lymphadenopathy. It is difficult to compare to the 2019 film because that was a lung cancer screening study, but it does appear, in my view, that there may have been small lymph nodes that have increased in size. There are now likely of borderline bilateral hilar lymph nodes. There is a precarinal prevascular AP windows and subcarinal lymph node. His celiac axis lymph node measured 2.7 x 1.7 cm. There is a small pericardial effusion. The lymphadenopathy is clearly new compared to [address] scan. There were also a few small right-sided pulmonary emboli. IMPRESSION: 1. Abnormal chest CT scan with a loculated pleural effusion, mediastinal and borderline hilar lymphadenopathy and increased pleural thickening/mass. The pleural effusions size itself has not changed significantly although there is a rind around it at this point. The differential, unfortunately, is most likely a malignancy when combined with his other symptoms. No history to suggest an infective or inflammatory cause at. 2. Pulmonary emboli. While he has pulmonary emboli, it is unclear as to when they occurred. Based on his history, he did not have any specific symptoms other than shortness of breath that had come on for over a month when he had the chest CT scan done today. He did not have sudden onset of shortness of breath nor chest pain. 3. Weight loss, 40 pound weight loss over the last couple of months. 4. Drenching night sweats. 5. Left pleural effusion known to be lymphocytic exudate. 6. Tobacco use usage, ongoing. RECOMMENDATIONS: 1. I spoke with both Dr. Roche who reviewed his scan from today as well as Dr. Barron. There is a change in the left lower hemithorax pleural based lesion which may represent just further increase pleural thickening versus mass versus some of fluid. After discussion we decided to biopsy that region at this time. 2. The biopsy/pleural fluid result will not likely be available until early next week. Would therefore recommend a CT of the abdomen and pelvis with contrast once he is far enough out from today's contrast to receive that CT scan. We will want to evaluate for any lymphadenopathy that may be present there and amenable to biopsy. 3. If there is generalized lymphadenopathy there may be an easy lymph node to biopsy. If not would likely proceed with EBUS if today's biopsy does not yield a result. 4. In regards to anticoagulation, would consider Lovenox twice daily. This will allow the anticoagulation to be stopped for procedures as indicated. Would prefer to avoid the longer acting oral agents at this time now. 5. I discussed today's biopsy with Mr. Willis, and questions were answered.
[2019-07-17 15:37] VITALS: BP 116/74
[2019-07-17 16:14] VITALS: BP 113/71
[2019-07-17] MEDS ORDERED: SLF 3 ML SYR IV PRN (16:15)
[2019-07-17 16:45] VITALS: BP 119/76
--- NOTE | 2019-07-17 17:09 | REP ---
Chest x-ray: Two views. History: Shortness of breath. Comparison chest x-ray: October 11, 2018. Findings: Moderate to large left pleural effusion is again seen increased in size from the October 11, 2018 study. There is some atelectatic change in the left mid lung zone. Interstitial markings are slightly prominent in the right lung. No focal right lung infiltrate is seen. No right pleural effusion is noted. Impression: Increased effusion left hemithorax. Prominent interstitial markings diffusely. Electronically Signed by Anthony Barron MD 07/17/2019 05:21 P
--- NOTE | 2019-07-17 17:31 | REP ---
CT-GUIDED LEFT LOWER LOBE LUNG BIOPSY The procedure was performed under the direct supervision of Dr. Barron. The risks and benefits of the procedure were explained to the patient and informed consent was obtained. The left lower lobe lung mass was localized using CT guidance. The skin was prepped and draped in a sterile fashion. 1% lidocaine was used as a local anesthetic. Using CT guidance a 19/20 gauge coaxial needle biopsy system was inserted and advanced into the mass. 10 ml of cloudy yellow fluid was withdrawn. Four core biopsy samples were then obtained. The patient tolerated the procedure well and there were no immediate complications. After the appropriate amount of monitored convalescence the patient was discharged from the department. Electronically Signed by DHAVAL Israel 07/17/2019 04:36 P Electronically Signed by Anthony Barron MD 07/17/2019 05:23 P
[2019-07-17] MEDS: ENOXAPARIN 80 MG/0.8 ML SYRINGE (J1650) SC SCH (18:32)
[2019-07-17 20:00] VITALS: BP 107/69
--- NOTE | 2019-07-17 20:01 | HPE ---
DATE OF ADMISSION: 07/17/2019 CHIEF COMPLAINT: Weight loss, dyspnea on exertion. HISTORY OF PRESENT ILLNESS: This is a 63-year-old white male patient of Dr. Mark Cornelius, directly admitted after a CT of the chest done on the day of admission showed right lower lobe subsegmental pulmonary embolus and new mediastinal hilar retrocrural internal mammary and upper abdominal lymphadenopathy. The patient over the last 2 months has had roughly a 40-pound weight loss and night sweats despite regular appetite without nausea, vomiting, or diarrhea. PAST MEDICAL HISTORY: Hospitalizations: None recently. Illnesses: Psoriasis, psoriatic arthritis, hyperlipidemia, BPH, chronic left pleural effusion, felt to be autoimmune by previous thoracentesis, nicotine use, hyperlipidemia, vitamin D deficiency, testosterone deficiency. MEDICATIONS: - tamsulosin 0.4 at bedtime - Taltz 80 mg every 2 weeks. The patient states 1 month prior he had stopped his atorvastatin 10 mg by mouth daily and escitalopram 10 by mouth daily. SOCIAL HISTORY: Patient lives with his , who is healthcare proxy. Continues to smoke half a pack per day. REVIEW OF SYSTEMS: CONSTITUTIONAL: Weight loss, night sweats as above. ENT: No epistaxis. CARDIOVASCULAR: No chest pain or palpitations. PULMONARY: Over the last 2 months, dyspnea with roughly 4-5 metabolic equivalent of tasks (METs). CARDIOVASCULAR: No chest pain or palpitations. GASTROINTESTINAL: No odynophagia, melena, hematochezia. No diarrhea or vomiting. GENITOURINARY: No dysuria or hematuria. DERMATOLOGIC: No rash. ENDOCRINE: No polydipsia, polyuria. RHEUMATOLOGIC: Chronic stable psoriatic arthritis, multijoint pain. NEUROLOGIC: No paresthesia, weakness. PHYSICAL EXAMINATION: 98.4, 120, 119/76, 94% on room air. GENERAL: Patient is a well-developed white male, stated age. No acute distress. Head is normocephalic, atraumatic. Ears: TMs normal. Bilateral eyes: Clear conjunctivae. No sign of discharge. Throat: Clear oropharynx: NECK: A 2 cm enlarged mid anterior cervical lymph node. Normal thyroid. No carotid bruits. CARDIOVASCULAR: Regular rate and rhythm without murmurs, rubs, or gallops. No S3, S4. No jugular venous distention (JVD). RESPIRATORY: Decreased breath sounds, left base detention up lung field. No rales or wheeze. ABDOMEN: Soft, nontender, nondistended. Positive bowel sounds. No hepatosplenomegaly palpated. EXTREMITIES: No clubbing, cyanosis, or edema. NEUROLOGIC: Nonfocal. INVESTIGATIONS: WBC 11.9, hemoglobin and hematocrit 12.1 and 38.7, platelets 502, neutrophils of 87%, lymphocytes 5%. Sodium 137, potassium 4.2, BUN 18, creatinine 0.9, albumin 2.9. AST/ALT of 13 and 18. PT of 13.8, APTT of 30.8. CT of the chest, as stated above. ASSESSMENT: A 63-year-old white male with symptomatic new right lower lobe subsegmental pulmonary embolism (PE) with 40-pound weight loss, night sweats, consistent with B symptoms and 12-year history of adalimumab therapy for psoriatic arthritis. The constellation of symptoms and history are highly suspicious for lymphoproliferative disorder, specifically lymphoma. PLAN: Today the patient underwent a thoracentesis of pleural fluid by Dr. Barron, and then afterward was started on low molecular weight heparin, 1 mg/kg subcutaneous twice a day, for treatment for PE. Tomorrow we will check a CT of the neck and abdomen and pelvis with and without contrast. His anterior cervical lymph node would probably be more amenable to biopsy rather than the mediastinal. Additionally, we will check a peripheral smear and LDH. For now, we will continue his home tamsulosin, restart his escitalopram after a discussion with the patient and his , given increased anxiety regarding the current diagnosis, and will restart his baseline atorvastatin.
[2019-07-17] MEDS: ATORVASTATIN 10 MG TAB PO SCH (20:04)
[2019-07-17] MEDS: TAMSULOSIN 0.4 MG CAP PO SCH (20:05)
[2019-07-17] MEDS: ACETAMINOPHEN TAB 650MG DOSE (2X325MG) PO PRN (20:07)
[2019-07-17 20:52] LABS: CREATININE FOR GFR 0.79 MG/DL (0.70-1.30); GLOMERULAR FILTRATION RATE > 60.0 (>49)
[2019-07-17] MEDS: SLF 3 ML SYR IV SCH (21:14)
[2019-07-18] VITALS: BP 130/68
[2019-07-18 04:00] VITALS: BP 124/75
[2019-07-18] MEDS: SLF 3 ML SYR IV SCH ×3 (06:00→19:59)
[2019-07-18] MEDS: ENOXAPARIN 80 MG/0.8 ML SYRINGE (J1650) SC SCH ×2 (06:01→18:27)
[2019-07-18 06:06] LABS: HEMATOCRIT 38.2 % (42.0-52.0); MEAN CORPUSCULAR HEMOGLOBIN 25.5 pg (27.0-33.0); MEAN CORPUSCULAR HGB CONC 31.4 g/dl (32.0-36.5); MEAN CORPUSCULAR VOLUME 81.3 fl (80.0-96.0); PLATELET COUNT, AUTOMATED 495 10^3/uL (150-450); WHITE BLOOD COUNT 10.9 10^3/uL (4.0-10.0)
[2019-07-18 06:27] LABS: ALBUMIN 2.7 GM/DL (3.2-5.2); ALT/SGPT 16 U/L (12-78); BILIRUBIN,TOTAL 0.5 MG/DL (0.2-1.0); BLOOD UREA NITROGEN 17 MG/DL (7-18); CARBON DIOXIDE LEVEL 28 MEQ/L (21-32); CHLORIDE LEVEL 106 MEQ/L (98-107); CREATININE FOR GFR 0.89 MG/DL (0.70-1.30); GLOMERULAR FILTRATION RATE > 60.0 (>49); GLUCOSE, FASTING 100 MG/DL (70-100); POTASSIUM SERUM 4.2 MEQ/L (3.5-5.1); SODIUM LEVEL 138 MEQ/L (136-145); TOTAL PROTEIN 7.6 GM/DL (6.4-8.2)
[2019-07-18] MEDS: ACETAMINOPHEN TAB 650MG DOSE (2X325MG) PO PRN ×3 (06:30→19:56)
[2019-07-18] MEDS: NICOTINE 7 MG/24 HR TRANSDERMAL TD SCH (06:48)
[2019-07-18 07:30] VITALS: BP 118/74
[2019-07-18] MEDS: GASTROGRAFIN SOLUTION 30ML PO SCH ×2 (08:29→09:03)
[2019-07-18] MEDS: ESCITALOPRAM OXALATE 10 MG TAB (LEXAPRO) PO SCH (08:30)
[2019-07-18] MEDS ORDERED: ISOVUE-370 76% 100ML VIAL (Q9967) As Ordered ONE (09:45)
--- NOTE | 2019-07-18 11:02 | REP ---
CT of the abdomen and pelvis multiphase imaging: Study is initially performed without IV contrast. This is followed by scanning during the arterial phase of contrast enhancement followed by scanning during the portal venous phase of contrast enhancement. Within the visualized lower lung ervin. There is a large left pleural effusion, possibly loculated. Please refer to the chest CT dated 07/17/2019 for further information. There are ground-glass densities throughout the visualized right lung parenchyma, possibly infiltrates. The inferior left lung is obscured by the pleural effusion. The hepatic parenchyma is homogeneous. The gallbladder, pancreas and spleen are normal size and unremarkable. The adrenals are unremarkable. The kidneys are unremarkable. The abdominal aorta is unremarkable. There are multiple periaortic lymph nodes, some are borderline enlarged, the others are normal size. No mesenteric adenopathy is identified. There is no ascites. There is no bowel distension or obstruction. No bowel wall thickening. Pelvis: The appendix is unremarkable. The prostate is enlarged. The bladder is unremarkable. There is no ascites. The pelvic bowel loops are unremarkable. Impression: Multiple periaortic nodes, most are normal size, some are borderline enlarged. No mesenteric adenopathy. No ascites. Large loculated left pleural effusion. Ground-glass densities in the right lung. The left lung is obscured by the pleural effusion. Prostate appears enlarged. There are no lytic, blastic or destructive skeletal changes. Electronically Signed by Abdirahman Saunders MD 07/18/2019 10:53 A
--- NOTE | 2019-07-18 11:09 | REPVR ---
PROCEDURE INFORMATION: Exam: CT Neck With Contrast Exam date and time: 07/18/2019 9:58 AM Clinical history: 63 years old, male; Other: Mediastinal adenopathy, b symptoms TECHNIQUE: Imaging protocol: Computed tomography images of the neck with intravenous contrast. Radiation optimization: All CT scans at this facility use at least one of these dose optimization techniques: automated exposure control; mA and/or kV adjustment per patient size (includes targeted exams where dose is matched to clinical indication); or iterative reconstruction. Contrast material: ISOVUE 370; Contrast volume: 50 ml; Contrast route: IV; COMPARISON: CT chest 07/17/19. FINDINGS: Nasopharynx: Unremarkable. Oropharynx: Unremarkable. No significant tonsillar enlargement. Hypopharynx: Unremarkable Larynx: Unremarkable. Normal epiglottis. Retropharyngeal space: Unremarkable. Submandibular/Parotid glands: Normal. Glands are normal in size. Thyroid: Normal. No enlarged or calcified nodules. Lymph nodes: Mediastinal lymphadenopathy, as status discussed on recent CT chest. Cervical lymphadenopathy is predominantly present in the left level IV and supraclavicular regions. There is a discrete 1.4 cm right level IV node (axial image #60). Trachea: Visualized trachea is unremarkable. Lungs: The pulmonary emboli seen on the comparison chest CT from yesterday are not well visualized on this study. Vasculature: Multiple dilated collateral veins throughout the left chest, consistent with left subclavian vein thrombosis. Bones/joints: No acute fracture. Soft tissues: Left supraclavicular soft tissue edema and fullness, including edema surrounding the enlarged thrombosed left subclavian vein. IMPRESSION: 1. Left greater the right cervical and supraclavicular lymphadenopathy. Partially imaged mediastinal lymphadenopathy. 2. Multiple dilated collateral veins throughout the left neck and chest, consistent with left subclavian vein thrombosis better seen on the recent comparison CT chest. Edema surrounding the occluded left subclavian vein may represent superimposed infectious/inflammatory thrombophlebitis. 3. The pulmonary emboli seen on the comparison chest CT from yesterday are not well visualized on this study. Reference that report for further details. Electronically signed by: Dell Nova On 07/18/2019 11:09:12 AM
--- NOTE | 2019-07-18 11:56 | IPNPDOC ---
Subjective Date Seen The patient was seen on 07/18/19. Subjective Chief Complaint/HPI dyspnea at baseline Constitutional: Reports: Fever Eyes: Denies: Pain ENT: Denies: Head Aches Skin: Denies: Rash, Lesions Pulmonary: Reports: Dyspnea; Denies: Cough Cardiovascular: Denies: Chest Pain, Palpitations Gastrointestinal: Denies: Nausea, Vomiting Objective Physical Examination General Exam: Positive: Alert Eye Exam: Positive: PERRLA ENT Exam: Positive: Atraumatic Neck Exam: Positive: Lymphadenopathy (R anterior cervical 1.[address], L supraclavicular 1.[address]); Negative: JVD Chest Exam: Positive: Diminished (L base to 1/2 way up); Negative: Rales, Rhonchi, Wheezing Heart Exam: Positive: Rate Normal Telemetry: Positive: No significant arrhythmia Abdomen Exam: Positive: Normal bowel sounds Extremity Exam: Negative: Clubbing, Cyanosis, Edema Skin Exam: Positive: Nl turgor and temperature Neuro Exam: Positive: Normal Gait, Normal Speech Psych Exam: Positive: Mood NL Assessment /Plan Problems (1) Cervical lymphadenopathy Status: Acute Problem Text: obvious concern for B-cell lymphoma given 12Y adalinamab use and classic B symptoms c 40 lb wt loss 07/18/19 CT neck 14 mm R mid paracervical LN (image #60)-plan 07/20 AM IR core bx appreciate Dr. Gandara consultation (2) Mediastinal lymphadenopathy Problem Text: as per cx LN (3) Pulmonary embolism Status: Acute Problem Text: favor onset ~mid 06/2019 c new onset PUCKETT 07/17/19 + therapeutic LMWH Study is positive for a small pulmonary embolus in the right lower lobe subsegmental pulmonary arterial tree. Findings suggest mild diffuse alveolar edema pattern in the lung ervin. Moderate-sized left pleural effusion again noted. New development of nodular pleural thickening in the remainder of the left hemithorax. There is coarse fairly thick visceral and parietal pleural thickening and enhancement. There is new mediastinal, hilar, retrocrural, internal mammary, and upper abdominal lymphadenopathy suspicious of metastatic disease and/or lymphoma. (4) Psoriatic arthritis Problem Text: Suraj held given malignancy concern (5) SONY (generalized anxiety disorder) Problem Text: 07/17 restarted HD escitalo 10 given increased anxiety re dx (6) BPH loc w urin obs/LUTS Problem Text: stable on HD tamsul 0.4 (7) Weight loss Status: Chronic Problem Text: as per cx LN (8) Night sweats Status: Chronic Problem Text: as per cx LN (9) Pleural effusion on left Status: Chronic Response to Treatment: Stable Problem Text: relatively stable cw 04/07/[address] chest 07/17/19 sp 10 ml fluid tesis and [address] Barron-path P (10) Subclavian vein thrombosis, left Problem Text: favor 2 malignancy-LMWH as per PE 07/18 CT neck: Multiple dilated collateral veins throughout the left neck and chest, consistent with left subclavian vein thrombosis better seen on the recent Plan/VTE VTE Prophylaxis Ordered?: Yes VS, I&O, 24H, Fishbone Vital Signs/I&O Vital Signs Date Time Temp Pulse Resp B/P (MAP) Pulse Ox O2 Delivery O2 Flow Rate FiO2 07/18/19 07:30 97.7 91 18 118/74 (89) 94 Room Air I&O- Last 24 Hours up to 6 AM 07/18/19 05:59 Intake Total 60 ml Output Total 400 ml Balance -340 ml Laboratory Data 24H LABS Laboratory Tests 2 07/17/19 18:48: Glomerular Filtration Rate > 60.0 07/18/19 05:24: Glomerular Filtration Rate > 60.0, Nucleated Red Blood Cells % (auto) 0.0, Differential Slide Review Report, Peripheral Blood Smear Path Consult PERIPHERAL SMEAR, Anion Gap 4L, Calcium Level 9.0, Total Bilirubin 0.5, Aspartate Amino Transf (AST/SGOT) 11, Alanine Aminotransferase (ALT/SGPT) 16, Alkaline Phosphatase 96, Lactate Dehydrogenase 132, Total Protein 7.6, Albumin 2.7L, Albumin/Globulin Ratio 0.55L CBC/BMP Laboratory Tests 07/17/19 18:48 07/18/19 05:24 Microbiology Microbiology 07/17/19 Anaerobic Culture, Received Pending 07/17/19 Gram Stain - Final, Resulted 07/17/19 Body Fluid Culture, Resulted Pending Manuel Keller M.D. Jul 18, 2019 11:56
[2019-07-18 12:00] VITALS: BP 130/78
--- NOTE | 2019-07-18 14:51 | IPN ---
DATE: 07/18/2018 Mr. Willis reports that he is feeling well this morning. He denies any significant cough. No shortness of breath at rest. No chest pain or pressure. He now feels that he is having sweats during the day as well as the evening. Today he tells me that he had noticed some discomfort in his left shoulder starting about a week to 10 days ago. It is in the region of the palpable lymph node but the lymph node itself is not tender. No other concerns expressed. He tolerated the transthoracic biopsy yesterday. OBJECTIVE: General: Mr. Willis is sitting on that side in bed no acute distress. He completes full sentences. No cough during the evaluation. Vital signs: Temperature 97.7, pulse 91, respiratory rate 18, blood pressure 118/74 with a MAP 89. SPO2 94% on room air. HEENT: Anicteric. NARES: Patent bilaterally. Oropharynx: Clear. No lesions, dentures. Neck: Supple, without thyromegaly or masses, trachea is midline. Lymph: There is a palpable left supraclavicular lymph node. I could not palpate cervical lymph nodes. Lungs: Asymmetric excursion decrease excursion on the left. The right lung is clear without wheeze, rhonchi or crackle. The left lung shows absent breath sounds on the lower half of the thorax and clear above that without wheeze, rhonchi or crackle. Normal I to E. No accessory muscle usage or retractions. Cardiovascular: Regular rate and rhythm with a normal S1-S2, no murmur, rub or gallop appreciated. Abdomen: Positive bowel sounds, soft. LABORATORY DATA: CBC from this morning shows a hemoglobin of 12 and hematocrit of 38.2, platelet count 495,000 with a white cell count of 10,900. Chemistry shows sodium 138, potassium 4.2, chloride 106, bicarbonate 28, anion gap 4, BUN 17, creatinine 0.9, glucose 100, calcium 9.0, total bilirubin 0.58, AST 11, ALT 16, alkaline phosphatase 96, LDH 132, total protein 7.6, albumin 2.7. Abdominal / pelvis CT scan from this morning, I reviewed the be the abdominal and pelvis CT scan from this morning. The study describes findings seen on the previous chest CT scan from 07/17. There are multiple periaortic lymph nodes, some are borderline enlarged. No mesenteric abnormality. No ascites. I reviewed the report from the neck CT scan done. That showed left greater than right cervical or supraclavicular lymphadenopathy. It also described multiple dilated collateral veins throughout the left neck and chest consists of left subclavian vein thrombosis. Pulmonary emboli seen yesterday were not well visualized on this study. I reviewed the report regarding his needle biopsy yesterday. The left lung lower lobe mass and describes it removing 10 mL of cloudy yellow fluid and then for core biopsies were obtained. IMPRESSION: 1. Abnormal chest CT scan with multiple abnormalities including a loculated pleural effusion, mediastinal or hilar lymphadenopathy and left lower lobe thickening / mass. In addition these findings he is an abnormal neck CT scan with cervical or supraclavicular lymphadenopathy. 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 Less likely including the differential was infection of the loculated pleural fluid with reactive lymph nodes. Again I feel that is unlikely. 2. Weight loss, 40 pounds weight loss over the last couple months. 3. Drenching night sweats and now days sweats. 4. Loculated left pleural effusion which was a lymphocytic exudate on thoracentesis in 2017. 5. Tobacco usage, ongoing at the time of admission. RECOMMENDATIONS: 1. We will await the results of a yesterday's biopsy. 2. However, given the lymph node findings, I discussed with Dr. Keller to go ahead and obtain a needle biopsy of whatever lymph node radiology feels is most amenable. 3. Hopefully one of those to biopsy should be diagnostic. If no the next source would be to do the Yolanda. He would not need to remain inpatient arranged that study. If it could be arranged expediently in a patient that would be acceptable but timing may be out several days and he could be discharged and that could be done as an outpatient. 4. I discussed the differential with the family and questions answered to the best of my ability.
--- NOTE | 2019-07-18 14:55 | ECHO ---
DATE OF SERVICE: 07/18/2019 REFERRING PROVIDER: Dr. Manuel Keller REASON FOR THE STUDY: Pulmonary embolism, shortness of breath. 2D MEASUREMENTS: IVS: 1.6 cm LV: 3.6 cm LVPW: 0.7 cm LA: 2.9 cm Aorta: 3.3 cm RV: 2.0 IVC: 1.7 cm DOPPLER MEASUREMENTS: Mitral E: 0.66 Mitral A: 0.88 with a ratio of 0.6 Tricuspid valve velocity: 1.5 m/s 2D COMMENTS: 1. Technically limited study due to poor acoustic window. 2. Left ventricle appeared to be normal in size as well as left ventricular wall thickness and systolic function. The estimated global left ventricular systolic ejection fraction is 55-60%. 3. Normal left atrium. Normal right atrium and right ventricle. 4. The atrial septum appeared to be normal without evidence of defect or shunt. 5. Normal aortic root. 6. A small pericardial effusion was noted, no evidence of cardiac tamponade. 7. Pleural effusion also noted. 8. Aortic valve, mitral valve, and tricuspid valve appeared to be normal. The pulmonic valve and proximal pulmonary artery branches were not well visualized. 9. The inferior vena cava is normal in size, central venous pressure might be normal. DOPPLER: No significant valvular abnormalities detected but trace tricuspid regurgitation. Abnormal relaxation pattern was noted across the mitral valve leaflets as well as the mitral valve annulus consistent with features of grade 1 left ventricular diastolic dysfunction. IMPRESSION: 1. Technically limited study due to poor acoustic window. 2. Normal global left ventricular systolic function. There are some features of grade 1 left ventricular diastolic dysfunction manifested by abnormal relaxation. 3. Trace tricuspid regurgitation with a normal calculated pulmonary artery systolic pressure. 4. A small pericardial effusion was noted, no evidence of cardiac tamponade.
[2019-07-18 16:00] VITALS: BP 117/77
[2019-07-18] MEDS: ATORVASTATIN 10 MG TAB PO SCH (19:57)
[2019-07-18] MEDS: TAMSULOSIN 0.4 MG CAP PO SCH (19:57)
[2019-07-18 20:00] VITALS: BP 111/67
[2019-07-19] VITALS (7 sets, daily range): BP systolic 108–120; BP diastolic 60–80
[2019-07-19] MEDS: SLF 3 ML SYR IV SCH ×3 (04:15→20:43)
[2019-07-19] MEDS: ACETAMINOPHEN TAB 650MG DOSE (2X325MG) PO PRN ×2 (05:16→17:30)
[2019-07-19] MEDS: ENOXAPARIN 80 MG/0.8 ML SYRINGE (J1650) SC SCH ×3 (05:17→07:35)
[2019-07-19 05:48] LABS: BASO # 0.1 10^3/uL (0.0-0.2); BASO % 0.6 % (0.0-1.0); EOS # 0.2 10^3/uL (0.0-0.5); EOS % 1.4 % (0.0-3.0); HEMATOCRIT 37.3 % (42.0-52.0); HEMOGLOBIN 11.7 g/dl (13.5-17.5); LYMPH % 9.1 % (24.0-44.0); MEAN CORPUSCULAR HEMOGLOBIN 25.8 pg (27.0-33.0); MEAN CORPUSCULAR HGB CONC 31.4 g/dl (32.0-36.5); MEAN CORPUSCULAR VOLUME 82.3 fl (80.0-96.0); MONO % 9.5 % (0.0-5.0); NEUTROPHILS # 8.6 10^3/uL (1.5-8.5); PLATELET COUNT, AUTOMATED 490 10^3/uL (150-450); RED BLOOD COUNT 4.53 10^6/uL (4.30-6.10); WHITE BLOOD COUNT 10.9 10^3/uL (4.0-10.0)
[2019-07-19 06:21] LABS: ALBUMIN 2.5 GM/DL (3.2-5.2); ALT/SGPT 15 U/L (12-78); BILIRUBIN,TOTAL 0.5 MG/DL (0.2-1.0); BLOOD UREA NITROGEN 21 MG/DL (7-18); CALCIUM LEVEL 8.5 MG/DL (8.8-10.2); CARBON DIOXIDE LEVEL 29 MEQ/L (21-32); CHLORIDE LEVEL 103 MEQ/L (98-107); CREATININE FOR GFR 0.92 MG/DL (0.70-1.30); GLOMERULAR FILTRATION RATE > 60.0 (>49); GLUCOSE, FASTING 91 MG/DL (70-100); POTASSIUM SERUM 3.9 MEQ/L (3.5-5.1); SODIUM LEVEL 138 MEQ/L (136-145); TOTAL PROTEIN 7.1 GM/DL (6.4-8.2)
[2019-07-19] MEDS: ESCITALOPRAM OXALATE 10 MG TAB (LEXAPRO) PO SCH (08:19)
[2019-07-19] MEDS: NICOTINE 7 MG/24 HR TRANSDERMAL TD SCH (08:19)
--- NOTE | 2019-07-19 15:14 | IPNPDOC ---
Subjective Date Seen The patient was seen on 07/19/19. Subjective Chief Complaint/HPI stable PUCKETT, night sweats Constitutional: Reports: Night Sweats, Fatigue, Weight Loss; Denies: Chills Eyes: Denies: Pain ENT: Denies: Head Aches Skin: Denies: Rash Pulmonary: Reports: Dyspnea Cardiovascular: Denies: Chest Pain Gastrointestinal: Denies: Nausea, Vomiting Genitourinary: Denies: Dysuria, Frequency Objective Physical Examination General Exam: Positive: Alert Eye Exam: Positive: PERRLA ENT Exam: Positive: Atraumatic Neck Exam: Positive: Lymphadenopathy (R anterior cervical 1.[address], L supraclavicular 1.[address]); Negative: JVD Chest Exam: Positive: Diminished (L base to 1/2 way up); Negative: Rales, Rhonchi, Wheezing Heart Exam: Positive: Rate Normal Telemetry: Positive: No significant arrhythmia Abdomen Exam: Positive: Normal bowel sounds Extremity Exam: Negative: Clubbing, Cyanosis, Edema Skin Exam: Positive: Nl turgor and temperature Neuro Exam: Positive: Normal Gait, Normal Speech Psych Exam: Positive: Mood NL Assessment /Plan Problems (1) Cervical lymphadenopathy Status: Acute Problem Text: obvious concern for B-cell lymphoma given 12Y adalinamab use and classic B symptoms c 40 lb wt loss, new leukocytosis/thrombocytosis/NCNC anemia 07/18/19 CT neck 14 mm R mid paracervical LN (image #60)-plan 07/20 AM IR core bx appreciate Dr. Gandara consultation (2) Leukocytosis Problem Text: as per cx LN (3) Mediastinal lymphadenopathy Problem Text: as per cx LN (4) Pulmonary embolism Status: Acute Problem Text: favor onset ~mid 06/2019 c new onset PUCKETT 07/17/19 + therapeutic LMWH Study is positive for a small pulmonary embolus in the right lower lobe subsegmental pulmonary arterial tree. Findings suggest mild diffuse alveolar edema pattern in the lung ervin. Moderate-sized left pleural effusion again noted. New development of nodular pleural thickening in the remainder of the left hemithorax. There is coarse fairly thick visceral and parietal pleural thickening and enhancement. There is new mediastinal, hilar, retrocrural, internal mammary, and upper abdominal lymphadenopathy suspicious of metastatic disease and/or lymphoma. (5) Psoriatic arthritis Problem Text: Suraj held given malignancy concern (6) SONY (generalized anxiety disorder) Problem Text: 07/17 restarted HD escitalo 10 given increased anxiety re dx (7) BPH loc w urin obs/LUTS Problem Text: stable on HD tamsul 0.4 (8) Weight loss Status: Chronic Problem Text: as per cx LN (9) Night sweats Status: Chronic Problem Text: as per cx LN (10) Pleural effusion on left Status: Chronic Response to Treatment: Stable Problem Text: relatively stable cw 04/07/[address] chest 07/17/19 sp 10 ml fluid tesis and [address] Barron-marcel P 07/17 aer/anaer CX NG (11) Subclavian vein thrombosis, left Problem Text: favor 2 malignancy-LMWH as per PE 07/18 CT neck: Multiple dilated collateral veins throughout the left neck and chest, consistent with left subclavian vein thrombosis better seen on the recent (12) Fe deficiency anemia Status: Chronic Response to Treatment: Stable Problem Text: caution now on AC 07/19 hgb stable at 11.7, 82 11/7 8%, 276; therefore, + FeSO4 325 QD Plan/VTE VTE Prophylaxis Ordered?: Yes VS, I&O, 24H, Fishbone Vital Signs/I&O Vital Signs Date Time Temp Pulse Resp B/P (MAP) Pulse Ox O2 Delivery O2 Flow Rate FiO2 07/19/19 13:58 91 Room Air 07/19/19 11:21 97.1 101 18 115/63 (80) 07/19/19 03:54 3.0 I&O- Last 24 Hours up to 6 AM 07/19/19 06:00 Intake Total 1800 ml Output Total 1300 ml Balance 500 ml Laboratory Data 24H LABS Laboratory Tests 2 07/19/19 05:10: Immature Granulocyte % (Auto) 0.4, Neutrophils (%) (Auto) 79.0H, Lymphocytes (%) (Auto) 9.1L, Monocytes (%) (Auto) 9.5H, Eosinophils (%) (Auto) 1.4, Basophils (%) (Auto) 0.6, Neutrophils # (Auto) 8.6H, Lymphocytes # (Auto) 1.0L, Monocytes # (Auto) 1.0H, Eosinophils # (Auto) 0.2, Basophils # (Auto) 0.1, Nucleated Red Blood Cells % (auto) 0.0, Anion Gap 6L, Glomerular Filtration Rate > 60.0, Calcium Level 8.5L, Total Bilirubin 0.5, Aspartate Amino Transf (AST/SGOT) 14, Alanine Aminotransferase (ALT/SGPT) 15, Alkaline Phosphatase 91, Total Protein 7.1, Albumin 2.5L, Albumin/Globulin Ratio 0.54L CBC/BMP Laboratory Tests 07/19/19 05:10 Microbiology Microbiology 07/17/19 Anaerobic Culture - Final, Complete 07/17/19 Gram Stain - Final, Complete 07/17/19 Body Fluid Culture - Final, Complete Manuel Keller M.D. Jul 19, 2019 15:14
[2019-07-19] MEDS: TAMSULOSIN 0.4 MG CAP PO SCH (20:42)
[2019-07-19] MEDS: ATORVASTATIN 10 MG TAB PO SCH (20:42)
[2019-07-20 04:00] VITALS: BP 122/78
[2019-07-20 05:12] LABS: HEMATOCRIT 35.7 % (42.0-52.0); HEMOGLOBIN 11.3 g/dl (13.5-17.5); MEAN CORPUSCULAR HEMOGLOBIN 25.5 pg (27.0-33.0); MEAN CORPUSCULAR HGB CONC 31.7 g/dl (32.0-36.5); MEAN CORPUSCULAR VOLUME 80.6 fl (80.0-96.0); PLATELET COUNT, AUTOMATED 466 10^3/uL (150-450); RED BLOOD COUNT 4.43 10^6/uL (4.30-6.10); WHITE BLOOD COUNT 10.2 10^3/uL (4.0-10.0)
[2019-07-20 05:25] LABS: INR 1.12; PARTIAL THROMBOPLASTIN TIME 33.7 SECONDS (25.0-38.4); PROTHROMBIN TIME 14.1 SECONDS (11.8-14.0)
[2019-07-20] MEDS: SLF 3 ML SYR IV SCH ×3 (05:26→20:42)
[2019-07-20 08:00] VITALS: BP 121/83
--- NOTE | 2019-07-20 08:38 | IPNPDOC ---
Subjective Date Seen The patient was seen on 07/20/19. Subjective Chief Complaint/HPI PE Events since last encounter Planned bx of cervical LAD today with Interventional radiology. patient using oxygen at night due to desaturation to 86%. Denies known hx of KATHRYN. c/o fullness to left cervical/supraclavicular region with mild pain on deep inspiration. Remains afebrile. Constitutional: Denies: Chills, Fever, Night Sweats Pulmonary: Denies: Dyspnea, Cough Cardiovascular: Denies: Chest Pain, Palpitations, Orthopnea, Paroxysmal Noc. Dyspnea, Lt Headedness Gastrointestinal: Denies: Nausea, Vomiting, Abdominal Pain, Diarrhea, Constipation Genitourinary: Denies: Dysuria, Frequency, Incontinence, Retention Psych: Reports: Mood Normal; Denies: Depression, Memory Issues Objective Physical Examination General Exam: Positive: Alert Eye Exam: Positive: PERRLA ENT Exam: Positive: Atraumatic Neck Exam: Positive: Lymphadenopathy (R anterior cervical 1.[address], L suprac lavicular 1.[address]); Negative: JVD Chest Exam: Positive: Diminished (L base to 1/2 way up); Negative: Rales, Rhonchi, Wheezing Heart Exam: Positive: Rate Normal Telemetry: Positive: No significant arrhythmia Abdomen Exam: Positive: Normal bowel sounds Extremity Exam: Negative: Clubbing, Cyanosis, Edema Skin Exam: Positive: Nl turgor and temperature Neuro Exam: Positive: Normal Gait, Normal Speech Psych Exam: Positive: Mood NL Assessment /Plan Problems (1) Cervical lymphadenopathy Status: Acute Problem Text: 07/20: obvious concern for B-cell lymphoma given 12Y adalinamab use and classic B symptoms c 40 lb wt loss, new leukocytosis/thrombocytosis/NCNC anemia. 07/20/19: Bx today with IR. pathology remains pending for thoracic fluid biopsy. anticipate DC home in am with DOAC for PE. f/u with pulmonology post DC. 07/18/19 CT neck 14 mm R mid paracervical LN (image #60)-plan 07/20 AM IR core bx appreciate Dr. Gandara consultation (2) Leukocytosis Problem Text: as per cx LN (3) Nocturnal hypoxia Status: Acute Problem Text: noc ox for tonight to determine need for oxygen. (4) Mediastinal lymphadenopathy Problem Text: as per cx LN (5) Pulmonary embolism Status: Acute Problem Text: favor onset ~mid 06/2019 c new onset PUCKETT 07/17/19 + therapeutic LMWH Study is positive for a small pulmonary embolus in the right lower lobe subsegmental pulmonary arterial tree. Findings suggest mild diffuse alveolar edema pattern in the lung ervin. Moderate-sized left pleural effusion again noted. New development of nodular pleural thickening in the remainder of the left hemithorax. There is coarse fairly thick visceral and parietal pleural thickening and enhancement. There is new mediastinal, hilar, retrocrural, internal mammary, and upper abdominal lymphadenopathy suspicious of metastatic disease and/or lymphoma. (6) Psoriatic arthritis Problem Text: Taltz held given malignancy concern (7) SONY (generalized anxiety disorder) Problem Text: 07/17 restarted HD escitalo 10 given increased anxiety re dx (8) BPH loc w urin obs/LUTS Problem Text: stable on HD tamsul 0.4 (9) Weight loss Status: Chronic Problem Text: as per cx LN (10) Night sweats Status: Chronic Problem Text: as per cx LN (11) Pleural effusion on left Status: Chronic Response to Treatment: Stable Problem Text: relatively stable cw 04/07/[address] chest 07/17/19 sp 10 ml fluid tesis and [address] Barron-path P 07/17 aer/anaer CX NG (12) Subclavian vein thrombosis, left Problem Text: favor 2 malignancy-LMWH as per PE 07/18 CT neck: Multiple dilated collateral veins throughout the left neck and chest, consistent with left subclavian vein thrombosis better seen on the recent (13) Fe deficiency anemia Status: Chronic Response to Treatment: Stable Problem Text: caution now on AC 07/19 hgb stable at 11.7, 82 11/7 8%, 276; therefore, + FeSO4 325 QD Plan/VTE VTE Prophylaxis Ordered?: Yes VS, I&O, 24H, Fishbone Vital Signs/I&O Vital Signs Date Time Temp Pulse Resp B/P (MAP) Pulse Ox O2 Delivery O2 Flow Rate FiO2 07/20/19 04:02 93 Nasal Cannula 2.0 07/20/19 04:00 99.0 98 18 122/78 (93) I&O- Last 24 Hours up to 6 AM 07/20/19 05:59 Intake Total 600 ml Output Total 800 ml Balance -200 ml Laboratory Data 24H LABS Laboratory Tests 2 07/20/19 04:45: Nucleated Red Blood Cells % (auto) 0.0, Prothrombin Time 14.1H, Prothromb Time International Ratio 1.12, Activated Partial Thromboplast Time 33.7 CBC/BMP Laboratory Tests 07/20/19 04:45 Microbiology Microbiology 07/17/19 Anaerobic Culture - Final, Complete 07/17/19 Gram Stain - Final, Complete 07/17/19 Body Fluid Culture - Final, Complete Gilda Duncan Jul 20, 2019 08:38 Gato Paez MD Jul 20, 2019 11:23
[2019-07-20] MEDS ORDERED: APIXABAN 5 MG TAB (ELIQUIS) PO SCH (09:00)
[2019-07-20] MEDS: ESCITALOPRAM OXALATE 10 MG TAB (LEXAPRO) PO SCH (09:04)
[2019-07-20] MEDS: NICOTINE 7 MG/24 HR TRANSDERMAL TD SCH (09:04)
[2019-07-20] MEDS: FERROUS SULFATE 325MG TAB PO SCH (09:04)
[2019-07-20 12:00] VITALS: BP 109/68
[2019-07-20 16:00] VITALS: BP 112/78
[2019-07-20] MEDS ORDERED: ENOXAPARIN 80 MG/0.8 ML SYRINGE (J1650) SC ONE (16:30)
[2019-07-20 19:26] VITALS: BP 107/61
[2019-07-20 20:00] VITALS: BP 125/77
[2019-07-20] MEDS: TAMSULOSIN 0.4 MG CAP PO SCH (20:41)
[2019-07-20] MEDS: ATORVASTATIN 10 MG TAB PO SCH (20:41)
[2019-07-20] MEDS: ACETAMINOPHEN TAB 650MG DOSE (2X325MG) PO PRN (20:42)
[2019-07-21] VITALS: BP 121/78
[2019-07-21 04:00] VITALS: BP 118/78
[2019-07-21] MEDS: SLF 3 ML SYR IV SCH ×2 (04:12→14:10)
[2019-07-21 05:36] LABS: BASO # 0.1 10^3/uL (0.0-0.2); BASO % 0.7 % (0.0-1.0); EOS # 0.2 10^3/uL (0.0-0.5); EOS % 2.5 % (0.0-3.0); HEMATOCRIT 35.2 % (42.0-52.0); HEMOGLOBIN 11.2 g/dl (13.5-17.5); LYMPH # 0.9 10^3/uL (1.5-5.0); LYMPH % 11.1 % (24.0-44.0); MEAN CORPUSCULAR HEMOGLOBIN 25.8 pg (27.0-33.0); MEAN CORPUSCULAR HGB CONC 31.8 g/dl (32.0-36.5); MEAN CORPUSCULAR VOLUME 81.1 fl (80.0-96.0); MONO # 0.9 10^3/uL (0.0-0.8); MONO % 10.7 % (0.0-5.0); NEUTROPHILS # 6.3 10^3/uL (1.5-8.5); NEUTROPHILS % 74.5 % (36.0-66.0); PLATELET COUNT, AUTOMATED 440 10^3/uL (150-450); RED BLOOD COUNT 4.34 10^6/uL (4.30-6.10); WHITE BLOOD COUNT 8.5 10^3/uL (4.0-10.0)
[2019-07-21 06:08] LABS: ALBUMIN 2.4 GM/DL (3.2-5.2); ALT/SGPT 66 U/L (12-78); BILIRUBIN,TOTAL 0.3 MG/DL (0.2-1.0); BLOOD UREA NITROGEN 21 MG/DL (7-18); CALCIUM LEVEL 8.8 MG/DL (8.8-10.2); CARBON DIOXIDE LEVEL 29 MEQ/L (21-32); CHLORIDE LEVEL 105 MEQ/L (98-107); CREATININE FOR GFR 0.85 MG/DL (0.70-1.30); GLOMERULAR FILTRATION RATE > 60.0 (>49); GLUCOSE, FASTING 92 MG/DL (70-100); SODIUM LEVEL 138 MEQ/L (136-145); TOTAL PROTEIN 6.9 GM/DL (6.4-8.2)
[2019-07-21 08:00] VITALS: BP 101/71
[2019-07-21] MEDS: NICOTINE 7 MG/24 HR TRANSDERMAL TD SCH (08:19)
[2019-07-21] MEDS: ESCITALOPRAM OXALATE 10 MG TAB (LEXAPRO) PO SCH (08:19)
[2019-07-21] MEDS: FERROUS SULFATE 325MG TAB PO SCH (08:19)
[2019-07-21] MEDS: ACETAMINOPHEN TAB 650MG DOSE (2X325MG) PO PRN (09:06)
[2019-07-21] MEDS ORDERED: LIDOCAINE 1% MDV 20ML VIAL As Ordered ONE (09:23)
--- NOTE | 2019-07-21 11:28 | NOCOX ---
DATE OF STUDY: 07/20/2019 INTERPRETATION: Recording nocturnal oximetry was done on room air. A total of 7 hours and 38 minutes of data was reviewed. Mean oxygen saturation was 91%. Oxygen saturation kiarn is listed at 76% but that is clearly artifact. The true kiran is likely in the low to mid 80s. He spent 97.2% in the night with saturations 89% or higher. He spent a total of 8 minutes and 26 seconds with saturations less than 88%. Some of which was artifactual. However, the continues time below that level was 1 minute and 52 seconds. SpO2 waveforms of 1-2% fluctuations. IMPRESSION: Reasonably acceptable nocturnal oxygenation on room air. Technically, he qualifies for oxygen if felt clinically indicated as he had more than 5 minutes total with saturations 88% or lower.
[2019-07-21] MEDS ORDERED: ELIQ5TAB PO (11:49)
[2019-07-21] MEDS ORDERED: FERR325T18 PO (11:49)
[2019-07-21] MEDS ORDERED: NICO7PA TD (11:49)
[2019-07-21 12:00] VITALS: BP 112/69
--- NOTE | 2019-07-21 12:26 | DSES ---
DATE OF ADMISSION: 07/17/2019 DATE OF DISCHARGE: BRIEF HISTORY AND PHYSICAL: The patient is a 63 year old, who presented to the office on July 09 complaining of weight loss of 20 pounds since November of last year, increased shortness of breath with minimal exertion, and soreness in the left scapular area with severe night sweats, feeling weak all over both shoulders without significant pain, had seen Dr. Roche about 6 weeks ago. He had done his low-dose CT of the chest and told him it was normal. He is on immunosuppressive therapy for psoriatic arthritis through [facility], currently on Taltz, previously, Cosentyx and in the past had been on Stelara and Humira. He has been on these type of medications for many years. He had a workup in the office with blood work showing significant elevation in CRP and sedimentation rate. Attempts to order CAT scan of the abdomen and pelvis were denied by his insurance. Ultimately, after reviewing his labs and thinking through his symptoms further, it was felt that a spiral CT of the chest would be ordered to rule out a pulmonary embolism. Insurance asked for D-dimer first which was elevated. Ultimately, he had a spiral CT of the chest showing a small pulmonary embolism in the right lower lobe, subsegmental pulmonary arterial tree. He had a moderate-sized left pleural effusion and a new development of nodular pleural thickening in the left thorax, new mediastinal hilar, retrocrural, and internal mammary and upper abdominal lymphadenopathy, suspicious for metastatic disease and/or lymphoma. The patient was directed to the hospital for admission and to undergo thoracentesis and initiate anticoagulation. PAST MEDICAL HISTORY: Is significant for psoriasis and psoriatic arthritis, followed by rheumatology in [place] and [facility] with dermatology, he is immunosuppressed, hyperlipidemia, BPH. He has a current smoker, long-term smoking history. He has been followed by Dr. Roche for pleurisy and pleural effusions in the past. He had a low-dose lung CT on 04/07/2019, which was described as category 1 with a large chronic left pleural effusion unchanged and chronic discoid atelectasis versus parenchymal scarring versus combination right lower lobe and lingular, similar to prior study. He has hyperlipidemia, BPH, vitamin D deficiency, arthritis, and testosterone deficiency. PERTINENT LABS ON ADMISSION: White count 11.9, hemoglobin 12.1, platelets 502,000. Sodium 137, potassium 4.2, BUN 18, creatinine 0.9, glucose 116, CRP was 10.6, sed rate was 61, D-dimer was 2700. HOSPITAL COURSE: 1. The patient was admitted for pulmonary embolism and mediastinal lymphadenopathy. The patient was started on therapeutic [id number]-gflfbq heparin until his biopsies were obtained for the above adenopathy and now, after getting his cervical lymph node biopsy today, he will be discharged home on Eliquis to start this evening 10 mg twice a day for 1 week then switched to 5 mg twice a day. He has not had any events of bleeding on the therapeutic Lovenox during the hospitalization. 2. Mediastinal lymphadenopathy and cervical lymphadenopathy. Overall, the concern is that he has a B-cell lymphoma, given his 12 years of adalimumab use and classic B symptoms with weight loss, leukocytosis, thrombocytosis, night sweats, and anemia. He underwent a CT-guided left lower lobe lung biopsy on 07/17/2019, which showed fibrous tissue and a few groups of benign-appearing mesothelial cells, no parenchyma rectum identified, no evidence of malignancy. He had a neck CT that showed left greater than right cervical and supraclavicular lymphadenopathy and multiple dilated collateral veins throughout the left neck and chest, consistent with left subclavian vein thrombosis with some edema surrounding the occluded left subclavian vein which may represent superimposed infectious or inflammatory thrombophlebitis. A pulmonary embolism seen in the comparison chest CT is not visualized on this study. On the date of discharge, he underwent a CT-guided needle biopsy of the cervical lymph node. Those results, of course, are pending at the time of his discharge. He tolerated the procedure well without complication and will be discharged home today and require followup of those results as an outpatient. He should follow up with Dr. Gandara as an outpatient, who had followed him throughout the hospitalization. 3. Nocturnal hypoxemia. He underwent a nocturnal oximeter test while here. He had a very short period of time, about a minute consecutive time, where his oxygen saturation dipped below 88%. He had scattered times throughout the night where it was low for a total of about 8 minutes. At this point, I spoke with Dr. Gandara, who does not feel that he needs nighttime oxygen at this point. The patient does not really want to go home with oxygen at this time. May need to follow this up as an outpatient to determine if he requires a repeat study or study in a sleep lab to further qualify him for this. 4. Psoriatic arthritis. All of his medicines, including the Taltz was held due to the concern for malignancy. 5. Subclavian vein thrombosis, as above. He is on Eliquis to be started as an outpatient. DISPOSITION: He is stable for discharge home. He will followup with Dr. Cornelius next week. Followup with Dr. Gandara per her office. Diet, regular. Activity as tolerated. MEDICATIONS: - Eliquis 10 mg twice a day for 7 days then 5 mg twice a day - iron sulfate 325 mg daily - nicotine patches 7 mg daily - atorvastatin 10 mg daily - vitamin D 1000 international units daily - Lexapro 10 mg daily - multivitamin daily - tamsulosin 0.4 mg daily DISCHARGE DIAGNOSES: 1. Pulmonary embolism. 2. 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 3. Mediastinal and cervical lymphadenopathy concerning for B-cell lymphoma. 4. Psoriatic arthritis. 5. Immunosuppressed status. 6. Iron-deficiency anemia. 7. Weight loss. 8. Generalized anxiety disorder. 9. Nicotine dependence. 10. BPH.
--- NOTE | 2019-07-21 18:01 | REP ---
ULTRASOUND-GUIDED LEFT SUPRACLAVICULAR LYMPH NODE BIOPSY The procedure was performed under the direct supervision of Dr. Barron. The patient has a history of left greater than right supraclavicular and cervical lymphadenopathy seen on a previous CT scan dated 07/18/2019. A lymph node in the left supraclavicular region was localized using ultrasound guidance. The skin was prepped and draped in a sterile fashion. 1% lidocaine was used as a local anesthetic. Using ultrasound guidance eight fine-needle aspirations were obtained using 25 gauge needles. The patient tolerated the procedure well and there were no immediate complications. Electronically Signed by DHAVAL Israel 07/21/2019 05:36 P Electronically Signed by Anthony Barron MD 07/21/2019 05:52 P
== END 2019-07-21 15:35 | disposition home or self-care (01) | DRG 952 ==
LOC: M RAD 09:00 → M PCU 10:41
PROVIDERS: ADMIT Family Medicine; ATTEND Family Medicine
PROC: 0B9J3ZX Drainage of Left Lower Lung Lobe, Percutaneous Approach, Diagnostic (ICD-10-PCS; 2019-07-17)
PROC: 07B73ZX Excision of Thorax Lymphatic, Percutaneous Approach, Diagnostic (ICD-10-PCS; principal; 2019-07-21 15:00)
DX: I26.99 Other pulmonary embolism without acute cor pulmonale (principal); J90 Pleural effusion, not elsewhere classified; I82.B12 Acute embolism and thrombosis of left subclavian vein; C77.0 Secondary and unspecified malignant neoplasm of lymph nodes of head, face and neck; G47.36 Sleep related hypoventilation in conditions classified elsewhere; L40.50 Arthropathic psoriasis, unspecified; R63.4 Abnormal weight loss; F41.1 Generalized anxiety disorder; F17.200 Nicotine dependence, unspecified, uncomplicated; N40.0 Benign prostatic hyperplasia without lower urinary tract symptoms; E55.9 Vitamin D deficiency, unspecified; E29.1 Testicular hypofunction; Z79.899 Other long term (current) drug therapy

== ENCOUNTER → 2019-08-11 | Outpatient (CLI) | payer OTHER ==
[~2019-08-11] MED LIST changes: +ELIQ5TAB PO; +FERR325T18 PO; +IBUP200T45 PO; +NICO7PA TD; +TEST1GEL8 TD; +[UNRECOGNIZED DRUG - CODE] SC
--- NOTE | 2019-08-11 15:46 | REP ---
Clinical: Lymphadenopathy. Technique: PA and lateral. Comparison: 07/17/2019. Findings: Gsvuquuy-[id number] left pleural effusion along with diffuse bilateral interstitial and alveolar opacities are similar to prior examination. Visualized mediastinum and cardiac silhouette stable. No pneumothorax. Skeletal structures intact. Impression: Pleural effusion and diffuse interstitial and alveolar opacities again noted. Differential diagnosis includes multifocal pneumonia / pneumonitis and neoplasm. Electronically Signed by Rodrigo Lawson MD 08/11/2019 03:39 P
== END ==
LOC: M RAD 15:13
PROVIDERS: ATTEND Internal Medicine Hematology
DX: R91.8 Other nonspecific abnormal finding of lung field (principal); R59.9 Enlarged lymph nodes, unspecified

== ENCOUNTER → 2019-08-13 | Outpatient (CLI) | payer OTHER ==
[~2019-08-13] MED LIST changes: +ISOVUE-370 76% 100ML VIAL (Q9967) As Ordered ONE
--- NOTE | 2019-08-13 14:34 | REP ---
Clinical: History of mesothelioma and recent pulmonary embolus with increase shortness of breath. Technique: Axial contrast enhanced images from the thoracic inlet to the upper abdomen using pulmonary embolus technique with multiplanar re-formations. 100 ml Isovue 370 intravenous contrast material administered without complication. Comparison: 07/17/2019. Findings: Current examination demonstrates no pulmonary embolus and the previously noted pulmonary emboli extending into the right lower lobe have resolved. The left hemithorax demonstrates irregular septal pleural thickening along with large pleural effusion and irregular areas of associated atelectasis/consolidation which remain relatively stable. The aerated lung ervin demonstrate a diffuse bilateral ground-glass infiltrative process with a fine underlying reticulonodular interstitial pattern which has considerably progressed since prior examination. The finding is nonspecific and would include pneumonitis as well as lymphangitic carcinomatosis. Further evaluation of the mediastinum demonstrates a small pericardial effusion without cardiomegaly. Minimal atherosclerotic changes to the thoracic aorta and moderate atherosclerotic changes to the coronary arteries noted. No evidence for aortic aneurysm or dissection. Considerable mediastinal and hilar adenopathy as well as left axillary adenopathy again noted and essentially unchanged. Limited evaluation of the upper abdomen demonstrates adenopathy in the visualized upper abdomen. Adrenal glands are grossly normal. Musculoskeletal structures are intact without pathologic fracture or acute abnormality. Impression: 1. Previous right lower lobe pulmonary embolus resolved. No new pulmonary embolus noted. 2. Abnormal findings involving the left hemithorax along with adenopathy consistent with the given history of mesothelioma remains stable. 3. Increased diffuse ground-glass opacities with fine underlying reticulonodular interstitial changes. Differential diagnosis includes pneumonitis as well as lymphangitic carcinomatosis. 4. Upper abdomen demonstrates associated adenopathy. Electronically Signed by Rodrigo Lawson MD 08/13/2019 02:26 P
== END ==
LOC: M RAD 13:04
PROVIDERS: ATTEND Internal Medicine Pulmonary Disease
DX: I26.09 Other pulmonary embolism with acute cor pulmonale (principal)
CPT/HCPCS: 71275; Q9967

== ENCOUNTER → 2019-08-18 | Outpatient (CLI) | payer OTHER ==
[~2019-08-18] MED LIST changes: -ISOVUE-370 76% 100ML VIAL (Q9967) As Ordered ONE
--- NOTE | 2019-08-19 10:06 | REP ---
PET/CT: History: staging mesothelioma. Comparisons: Comparison CT study of the chest August 13, 2019. TECHNIQUE: 58 minutes following the intravenous injection of a 8.99 mCi dose of F-18 FDG, three-dimensional PET scintigraphy is acquired from the skull base to the proximal thighs. Triplanar noncontrast CT scanning is acquired through the same anatomic range for attenuation correction, and image registration with scan parameters optimized to minimize radiation exposure to the patient. PET scintigraphy and CT datasets were fused and displayed on a workstation with multiplanar and projection display capability. PET/CT Findings: There is an extensive pattern of multifocal visceral and parietal pleural hypermetabolic nodular uptake in the left hemithorax superiorly and inferiorly consistent with extensive pleural involvement in this patient's mesothelioma. Maximum standard uptake value ranges in the multifocal pleural disease up to 7.95. Most of the foci are in the range of 4 to 5 for SUV values. In addition, there is hypermetabolic mediastinal, right hilar, left retrocrural, left internal mammary, celiac axis, and left supraclavicular and left subclavian adenopathy. Maximum standard uptake value in these rekha foci ranges up to 6.24 in subcarinal rekha focus. The recently identified diffuse interstitial and ground-glass opacity pattern throughout the remaining lung parenchyma shows mildly increased FDG accumulation as well with areas of increased uptake ranging up to 2.81. These findings are not specific for but considered suspicious for lymphangitic spread extensively. No abnormal skeletal uptake is seen. Other than the a small celiac axis lymph nodes, there is no abnormal uptake in the abdomen and pelvis. Impression: Extensive hypermetabolic disease throughout the left pleural space as well as rekha involvement including the left neck, left subclavian, left internal mammary, right hilar, mediastinal, left retrocrural, and celiac axis lymph node chains. Findings are suspicious for extensive lymphangitic pulmonary parenchymal disease as well. Electronically Signed by Anthony Barron MD 08/19/2019 05:37 P
== END ==
LOC: M PLARAD 15:26
PROVIDERS: ATTEND Internal Medicine Hematology
DX: C45.7 Mesothelioma of other sites (principal)
CPT/HCPCS: 78815; A9552

== ENCOUNTER → 2019-09-07 | Outpatient (CLI) | payer OTHER ==
[~2019-09-07] MED LIST changes: +ACETAMINOPHEN 325 MG TAB As Ordered ONE; +ACETAMINOPHEN 325 MG TAB PO PRN; +ACETAMINOPHEN TAB 650MG DOSE (2X325MG) PO PRN; +B-12100021 PO; +CENT1TAB2 PO; +D 202000 PO; +FOLI1TAB11 PO; +LOVE1INJ SC; +ZOFR8TAB24 PO
--- NOTE | 2019-09-07 15:25 | REP ---
Chest x-ray: Two views. History: Post left thoracentesis. Comparison chest CT study August 13, 2019. Comparison chest x-ray August 11, 2019. Findings: There is a improvement in the size of the left pleural effusion at the left base post thoracentesis. A small quantity of pleural air is seen producing an air-fluid level in the loculated pleural collection posteriorly. Left hemidiaphragm remains somewhat elevated. Diffuse interstitial lung disease is seen bilaterally. No other pleural air is seen. Impression: There is an air-fluid level in the left pleural fluid collection post procedure. This may be procedural air. No other evidence of complication. The fluid collection is decreased in size. Electronically Signed by Anthony Barron MD 09/07/2019 06:18 P
[2019-09-07 15:38] LABS: APPEARANCE, BODY FLUID TURBID (CLEAR); PLEURAL FL COLOR YELLOW (COLORLESS); SOURCE, BODY FLUID PLEURAL
[2019-09-07 16:12] LABS: LDH, BODY FLUID 2199 U/L (NOT ESTABLISHED); SOURCE, BODY FLUID LDH PLEURAL; SOURCE, BODY FLUID TOT PROTEIN PLEURAL; TOTAL PROTEIN, BODY FLUID 5.9 G/DL (NOT ESTABLISHED)
[2019-09-07 17:32] VITALS: BP 101/67
--- NOTE | 2019-09-07 18:29 | REP ---
Ultrasound-guided thoracentesis The procedure was performed by DHAVAL Tobar, under the direct supervision of Dr. Barron. The risks and benefits of the procedure were explained to the patient and informed consent was obtained both verbally and written. Directly prior to the start of the procedure, a formal timeout was completed in the exam room. Pleural fluid on the left lung zone was localized using ultrasound guidance. The skin was prepped and draped in a sterile fashion. 4 ml of 1% lidocaine 10 mg/ml was used as a local anesthetic. Using ultrasound guidance, an 8-Italian multi side-hole catheter was inserted and advanced into the fluid. 510 ml of cloudy yellow colored fluid was withdrawn and sent to the lab for analysis. The patient tolerated the procedure well and there were no immediate complications. After the appropriate amount of monitored convalescence, the patient was discharged from the department. Reviewed by DHAVAL Lindo 09/07/2019 05:12 P Electronically Signed by Anthony Barron MD 09/07/2019 06:19 P
== END ==
LOC: M IRPRO 13:18
PROVIDERS: ATTEND Internal Medicine Hematology
DX: R84.6 Abnormal cytological findings in specimens from respiratory organs and thorax (principal); J90 Pleural effusion, not elsewhere classified

== ENCOUNTER 2019-09-18 08:22 | Inpatient (IN) | payer BC, OTHER ==
[2019-09-18] VITALS (11 sets, daily range): BP systolic 95–116; BP diastolic 69–77; O2SAT 93
[~2019-09-18] VITALS: Ht 172.7 cm; Wt 58.7 kg
[~2019-09-18 08:22] MED LIST changes: -ACETAMINOPHEN 325 MG TAB As Ordered ONE; -ACETAMINOPHEN 325 MG TAB PO PRN; -ACETAMINOPHEN TAB 650MG DOSE (2X325MG) PO PRN
[2019-09-18] MEDS ORDERED: ALBUTEROL SULFATE 2.5 MG/0.5 ML INH NEB SOLN As Ordered ONE (08:32)
[2019-09-18] MEDS ORDERED: IPRATROPIUM 0.5MG/ALBUTEROL 2.5MG INH SOL UD 3ML (DUONEB)(J7620) As Ordered ONE (08:32)
[2019-09-18 08:36] LABS: ABG BASE EXCESS -2.9 (-2.0-2.0); ABG HCO3 26.8 MEQ/L (22.0-26.0); ABG O2 SATURATION 94.8 % (95.0-99.0); ABG PARTIAL PRESSURE O2 88.5 mmHg (75.0-100.0)
[2019-09-18 08:37] LABS: ABG pH (ARTERIAL) 7.195 UNITS (7.350-7.450)
[2019-09-18] MEDS ORDERED: ALBUTEROL SULFATE 2.5 MG/0.5 ML INH NEB SOLN INH ONE (08:45)
[2019-09-18] MEDS ORDERED: IPRATROPIUM 0.5MG/ALBUTEROL 2.5MG INH SOL UD 3ML (DUONEB)(J7620) NEB ONE (08:45)
[2019-09-18] MEDS ORDERED: methylPREDNISolone INJ 125 MG/2 ML VIAL (J2930) IV ONE (08:45)
[2019-09-18] MEDS ORDERED: NS 1,000 ML IV ONE (08:45)
[2019-09-18 08:52] LABS: BASO % 0.1 % (0.0-1.0); HEMATOCRIT 46.9 % (42.0-52.0); LYMPH % 1.6 % (24.0-44.0); MEAN CORPUSCULAR HEMOGLOBIN 24.2 pg (27.0-33.0); MEAN CORPUSCULAR HGB CONC 27.7 g/dl (32.0-36.5); MEAN CORPUSCULAR VOLUME 87.2 fl (80.0-96.0); MONO # 0.2 10^3/uL (0.0-0.8); MONO % 1.3 % (0.0-5.0); NEUTROPHILS # 13.3 10^3/uL (1.5-8.5); NEUTROPHILS % 96.6 % (36.0-66.0); PLATELET COUNT, AUTOMATED 336 10^3/uL (150-450); RED BLOOD COUNT 5.38 10^6/uL (4.30-6.10); WHITE BLOOD COUNT 13.8 10^3/uL (4.0-10.0)
[2019-09-18 09:03] LABS: INR 1.36; PROTHROMBIN TIME 16.5 SECONDS (11.8-14.0)
[2019-09-18 09:12] LABS: LYMPH # 0.2 10^3/uL (1.5-5.0)
[2019-09-18] MEDS ORDERED: ONDA8TAB10 PO (09:14)
[2019-09-18] MEDS ORDERED: ELIQ5TAB PO (09:14)
[2019-09-18] MEDS ORDERED: AZITHROMYCIN INJ 500 MG, VIAL MATE ADAPTER 1 EACH in D5W 250 ML IV ONE (09:15)
[2019-09-18] MEDS ORDERED: cefTRIAXone SOD 2 GM in D5W MINI-BAG PLUS 50 ML IV ONE (09:15)
[2019-09-18 09:25] LABS: ALBUMIN 2.7 GM/DL (3.2-5.2); ALT/SGPT 51 U/L (12-78); BILIRUBIN,DIRECT < 0.1 MG/DL (0.0-0.2); BILIRUBIN,TOTAL 0.5 MG/DL (0.2-1.0); CPK CREATINE PHOSPHOKINASE 154 U/L (39-308); MB/CK RELATIVE INDEX 3.25 (< OR =4); NT-PRO BNP 14572 PG/ML (<125); THYROXINE (T4) 8.2 UG/DL (4.5-12.0); TOTAL PROTEIN 6.3 GM/DL (6.4-8.2); TROPONIN I 0.27 NG/ML (< 0.10)
[2019-09-18] MEDS ORDERED: PIPERACILLIN/TAZOBACTAM SOD 4.5 GM in D5W MINI-BAG PLUS 50 ML IV ONE (09:30)
--- NOTE | 2019-09-18 09:58 | REP ---
CHEST PORTABLE: AP portable view of the chest is performed and compared to a prior study 09/07/2019. There is mild increase and worsening of diffuse interstitial and ground-glass alveolar infiltrates. The heart does not appear to be significantly enlarged. No change is seen in the consolidated opacity in the left lower lobe. There may be small left effusion which has decreased since the prior study. Electronically Signed by Abdirahman Rutherford MD 09/19/2019 03:11 P
[2019-09-18] MEDS ORDERED: FUROSEMIDE 20 MG/2 ML VIAL (J1940) IV ONE (10:00)
[2019-09-18] MEDS ORDERED: ASPIRIN 81 MG CHEW TABLET PO ONE (10:00)
[2019-09-18] MEDS: IPRATROPIUM 0.5MG/ALBUTEROL 2.5MG INH SOL UD 3ML (DUONEB)(J7620) NEB SCH ×3 (12:00→20:14)
--- NOTE | 2019-09-18 13:52 | ECHO ---
DATE OF PROCEDURE: 09/18/2018 REFERRING PHYSICIAN: Dr. Rutherford INDICATION: Congestive heart failure. HEIGHT: 175 cm WEIGHT: 62 kg DIMENSIONS: IVS: 0.9 LV: 3.4 LVPW: 0.9 LA: 2.3 Aorta: 3.1 RV: 2.8 IVC: 2.5 Mitral E velocity: 35 E prime septal: 5.9 E prime lateral: 8.9 IVC: 2.5 FINDINGS: The study is of difficult technical quality. The patient is in sinus tachycardia with ventricular heart rate approximately 130 bpm. Left ventricle is normal size and has hyperdynamic contractility, I estimate left ventricular ejection fraction (LVEF) around 70%. No segmental wall motion abnormalities are appreciated. Right ventricle appears grossly normal but it was poorly visualized. Both atria appear to be normal size. Aortic, mitral and tricuspid valves appear normal. Pulmonic valve was not well seen. Small non-compressive pericardial effusion is noted. Inferior vena cava is dilated and there is no appreciable collapse with inspiration indicative of high central venous pressure. Aortic root is normal. Aortic arch and abdominal aorta were not well seen. Doppler interrogation reveals competent aortic and mitral valves. There is trace tricuspid insufficiency. Calculated pulmonary artery pressure is around 40 mmHg, but it is based on very poor quality of TR jet and can potentially underestimate the severity of pulmonary hypertension. Mitral inflow pattern and tissue Doppler imaging of mitral annulus reveal grade 1 diastolic dysfunction but this is in setting of prominent tachycardia. CONCLUSION: 1. Study is of fair technical quality, patient is in sinus tachycardia with ventricular heart rate 130 bpm. 2. Normal LV size with hyperdynamic LV systolic function and probably grade 1 diastolic dysfunction. 3. No significant valvular disease. 4. Elevated central venous pressure. 5. At least mild to moderate pulmonary hypertension. 6. Small non-compressive pericardial effusion. COMMENTS: Subacute bacterial endocarditis (SBE) prophylaxis is not recommended. MTDD
[2019-09-18] MEDS ORDERED: ONDANSETRON 4 MG TAB (S0181) PO PRN (14:00)
[2019-09-18] MEDS: methylPREDNISolone INJ 125 MG/2 ML VIAL (J2930) IV SCH ×2 (14:08→17:33)
--- NOTE | 2019-09-18 15:14 | CR ---
MEDICAL ONCOLOGY CONSULTATION DATE OF ENCOUNTER 09/18/2019 INDICATION FOR CONSULTATION: Mesothelioma with respiratory failure. IDENTIFICATION AND CHIEF COMPLAINT: Jethro Willis is an unfortunate 63-year-old gentleman with malignant mesothelioma, locally advanced disease, admitted via the emergency department on 09/18/2019 with respiratory failure. He reports "I think I'm alright." HISTORY OF PRESENT ILLNESS: Jethro Willis is a very pleasant 63-year-old gentleman whose history of present illness dates to November 2017, when he first noted gradual onset of exertional dyspnea, as well as discomfort in the region of the left scapula. Throughout the subsequent year, exertional dyspnea became progressively worse and Mr. Willis was evaluated by Dr. Roche of pulmonary medicine. Imaging studies demonstrated a left pleural effusion and a thoracentesis was performed, however, cytology from that sample was nondiagnostic. Mr. Willis ultimately presented to the office of Gato Paez MD, his primary care provider, on 07/09/2019 reporting persistent and progressively worsening exertional dyspnea, as well as discomfort in the area of the left scapula, night sweats and weight loss of approximately 20 pounds cumulatively. Mr. Willis underwent spiral CT scan on 07/17/2019, which documented a filling defect in the right lower lobe subsegmental pulmonary arterial tree, consistent with pulmonary embolus. At that time imaging showed pulmonary parenchyma with a diffuse alveolar pattern of opacification, and a moderate-sized left pleural effusion, as well as thickening of the visceral and parietal pleura. He was further noted to have mediastinal lymphadenopathy, a new finding compared to prior CT scan of 04/07/2019. In addition to pathologic lymphadenopathy in the precarinal, aortopulmonary window, subcarinal lymph node regions and retrocrural lymph nodes, celiac axis lymphadenopathy was documented, measuring 2.7 cm in maximal dimension. A small pericardial effusion was also seen. The patient underwent thoracentesis during that hospital stay and was anticoagulated using enoxaparin initially, ultimately transitioned to apixaban. Biopsy of a left cervical lymph node was performed on 07/21/2019 and this showed mesothelioma, metastatic to the cervical lymph node. Pathology was reviewed and confirmed at [facility]. Mr. Willis was initially evaluated in the medical oncology practice by Dr. Deutsch on 08/03/2019, and subsequently seen on 08/11/2019. He was then referred to the Department of Thoracic Surgery at the [facility] at the [facility], where the patient was deemed to be surgically unresectable. He therefore began systemic chemotherapy, receiving the combination of cisplatin and pemetrexed on 09/15/2019 and 09/16/2019. The cisplatin dose of 75 mg/m2 was administered over 2 days with aggressive hydration in order to minimize the risk of nephrotoxicity. In the afternoon of 09/16/2019 the patient was lethargic, but responsive and appropriate at the end of chemotherapy infusion. Discussion was undertaken regarding possible BiPAP or CPAP support as the patient's reported that Mr. Willis was desaturating at night below 90%. On 09/18/2019, the patient's noted Mr. Willis to be somnolent, and contacted the Medical Oncology practice early in the morning. The patient was brought to the emergency department by ambulance. On presentation, he was afebrile but tachycardiac with a pulse of 126 beats per minute, and respiratory rate of 14 per minute with oxygen saturation of 91% on supplemental oxygen. Laboratory studies showed a troponin leak as well as lactic acidosis with a serum lactate of 6.1. He was therefore brought to the intensive care unit and is now on BiPAP at FiO2 of 50%. Mr. Willis continues to be somewhat somnolent but is responsive and appropriate, although obviously fatigued. He has been afebrile without recent fevers or chills. ALLERGIES: NONE KNOWN. CURRENT MEDICATIONS: - DuoNeb inhalation therapy q.4 hours p.r.n. - furosemide 20 mg once intravenously - aspirin 324 mg once by mouth - Zosyn 4.5 grams intravenously once - ceftriaxone 2 grams intravenously once - azithromycin 500 mg intravenously once - methylprednisolone 125 mg intravenously once - Of note, the patient has been maintained on apixaban 5 mg twice daily as an outpatient along with atorvastatin 10 mg by mouth daily and Lexapro 10 mg by mouth daily with tamsulosin 0.4 mg by mouth daily. PAST MEDICAL HISTORY: The patient has a past history significant for psoriasis and psoriatic arthritis for which he has been treated with a variety of immunomodulatory drugs including Cosentyx, Stelara, and Humira at various times. There is a history of benign prostatic hypertrophy and a history of hyperlipidemia. There is also history of vitamin D deficiency and testosterone deficiency. The patient has malignant mesothelioma as noted and has undergone thoracentesis on several occasions. SOCIAL HISTORY: Tobacco: The patient smoked an average of one pack per day for approximately 35 years and was recently smoking as much as one-third pack per day. Alcohol: The patient has consumed alcohol socially in the past. Illicit drugs: The patient never used illicit drugs. 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 FAMILY HISTORY: The patient's father from complications of cirrhosis. The patient's mother is alive at age of 78. REVIEW OF SYSTEMS: Neurologic: The patient has been somnolent for the past several days as noted. No history of head trauma. No history of seizures. No focal neurologic deficits. Respiratory: History of mesothelioma with left pleural effusion status post thoracentesis on several occasions, profound dyspnea with home oxygen supplementation in the past several weeks. No hemoptysis. Intermittent cough nonproductive. Cardiac: No prior history of myocardial infarction. No exertional chest pressure. No leg edema. No orthopnea. Gastrointestinal: No recent nausea, vomiting, abdominal pain or diarrhea. Genitourinary: No history of nephrolithiasis, no flank pain. No dysuria. The patient does have chronic urinary hesitancy. Constitutional: The patient was experiencing night sweats and has had weight loss as detailed along with profound fatigue. The remainder of the review of systems was obtained and was negative. PHYSICAL EXAMINATION: Mr. Willis is a thin, gentleman with bitemporal wasting, awake but somnolent, arousable and appropriately responsive, following commands and speaking in monosyllables or short sentences. Temperature 98.1, pulse 128, respiratory rate 34 on BiPAP, blood pressure 95/69, oxygen saturation 92% on BiPAP at FiO2 of 50%. Skin: Full turgor, anicteric. The patient has psoriatic lesions on the left hand that are bland. No other lesions noted. HEENT Examination: Normocephalic with bitemporal wasting. Atraumatic. Pupils equal, round, reactive and accommodate. Extraocular muscles intact. Sclerae anicteric. Oropharynx with dry mucosa. No lesions noted. Neck: Supple, without thyromegaly. Lymphatics: There is fullness in the left supraclavicular region without discrete lymphadenopathy appreciated. There is no appreciable lymphadenopathy in the right cervical chain. Axilla without pathologic lymphadenopathy and no pathologic lymphadenopathy in the inguinal regions. Lungs: Dull to percussion throughout the left lung and resonant to percussion throughout the right lung. Breath sounds are present bilaterally but decreased in the left lower two-thirds. No wheezes or rales appreciated. No rub noted. Cardiac Exam: Tachycardia noted. Point of maximal impulse nondisplaced. S1, S2, without gallop, rub or murmur appreciated. Abdomen: Active bowel sounds, soft, nontender. Without appreciable organomegaly. The liver percusses to 11 cm. The spleen percusses to 7 cm. There is no guarding or rebound elicited. Rectal Examination: Deferred. Extremities: Without cyanosis or edema but mild clubbing is present. Neurologic Exam: Mental status remarkable for somnolence. Cranial nerves intact. Motor and sensory grossly intact. LABORATORY DATA: Laboratory studies dated 09/18/2019 include the following. White blood count 13,800 per microliter, hemoglobin 13 g/dL, hematocrit 46.9%, platelet count 336,000. End terminal proBNP, natriuretic peptide level 14,572. Troponin 0.27, elevated. CPK-MB 5.0, elevated. AST 66, ALT 51, alkaline phosphatase 118. Total bilirubin 0.5 mg/dL, lactic acid 6.1. Creatinine 0.89 mg/dL as of 09/16/2019. Repeat creatinine pending at this time. Chest radiogram 09/18/2019 reports increased in worsening of diffuse interstitial and ground-glass alveolar infiltrates. Small left effusion which is decreased since prior study. Echocardiogram is preliminary reported as showing normal left ventricular ejection fraction. IMPRESSION: Malignant mesothelioma, day 4 of cycle 1 cisplatin/pemetrexed, now with multiorgan injury. The patient's dysfunction of renal, hepatic and cardiac systems appear to be due to hypoxemia on the basis of the patient's impaired pulmonary functions. The patient's prognosis is poor, but it is so early in the course of systemic antineoplastic therapy using cisplatin and pemetrexed that it is impossible to determine whether or not the patient would have a favorable response to therapy. The patient's is at the bedside and is aware of the patient's poor prognosis. At this point in time, she wishes to consult her children who will be arriving later this afternoon regarding whether or not cardiopulmonary resuscitation should be undertaken in the event of cardiopulmonary arrest. Thus, a decision regarding endotracheal intubation has been deferred at the moment and the patient remains a FULL CODE. This may change once the patient's has had the opportunity to discuss the situation with her children. When the question arises as to whether not corticosteroids would be appropriate and ongoing high-dose corticosteroids certainly would not compromise the therapeutic effects of systemic antineoplastic therapy and therefore there is no evident contraindication. The patient does not appear to have an active bacterial infection at this time clinically. RECOMMENDATIONS: It is recommended the patient continue to be supported with BiPAP, and corticosteroids appear appropriate at high doses at this time in an attempt to suppress any inflammatory process contributing to the patient's hypoxemia. As noted the patient's prognosis is guarded, but ideally he would receive a minimum of two cycles of [place] based chemotherapy before declaring that therapy to have failed to improve his tumor burden. The patient will continue be followed by the medical oncology service with additional recommendations forthcoming as the patient's clinical status evolves. cc: Romie Gandara MD
[2019-09-18] MEDS ORDERED: MIDAZOLAM INJ 2 MG/2 ML VIAL (J2250) IV STA (17:15)
--- NOTE | 2019-09-18 17:25 | CR ---
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 He was admitted with hypoxemia, oxygen saturations 60 to 70s. He has metastatic mesothelioma diagnosed on a lymph node biopsy in the last year. He has recently had a pulmonary embolism for which he is on apixaban. History of psoriasis and psoriatic arthritis for which he was on immunosuppressant therapy over the past few years. History of benign prostatic hypertrophy (BPH), hyperlipidemia, vitamin D deficiency, testosterone deficiency. SOCIAL HISTORY: Pack per day smoker for 35 years. Moderate alcohol intake. Exposed to asbestos three years in the [employer]. 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 REVIEW OF SYSTEMS: Not obtainable. PHYSICAL EXAMINATION: Patient seen in the ICU bed. He has a BiPAP mask on. He cannot speak. He indicates he feels better with BiPAP on. He looks cachectic and dramatically ill since the last time I saw him in the office. Lungs have good air movement, but diffuse rhonchi or rales. Heart: Regular rhythm. Abdomen: Soft, nontender. Trace peripheral edema. LABS: IMAGING was reviewed. IMPRESSION: Mr. Willis appears to have progressive metastatic mesothelioma. I believe his progressive hypoxemia and dyspnea is from progression of his disease. Appreciate Dr. Gandara for providing him with some noninvasive ventilatory support. He is on high dose steroids to see whether reducing inflammation might help. He clinically appears much more ill and weak than when I last saw him in the office. I think his prognosis is poor. Dr. Vela will be rounding for our group this weekend, available for any medical issues we can help with.
[2019-09-18 18:21] LABS: ABG BASE EXCESS 6.2 (-2.0-2.0); ABG HCO3 34.8 MEQ/L (22.0-26.0); ABG O2 SATURATION 94.7 % (95.0-99.0); ABG PARTIAL PRESSURE O2 79.7 mmHg (75.0-100.0); ABG STANDARD HCO3 30.1 MEQ/L (22.0-26.0); ABG pH (ARTERIAL) 7.308 UNITS (7.350-7.450)
[2019-09-18 18:25] LABS: ABG PARTIAL PRESSURE CO2 71.1 mmHg (35.0-45.0)
--- NOTE | 2019-09-18 19:06 | HPE ---
DATE OF ADMISSION: 09/18/2019 NOTE: Mr. Willis is a 63-year-old male with a newly diagnosed stage IV mesothelioma who has had worsening hypoxemia and weakness over the past several weeks. His diagnosis of mesothelioma was made by a left supraclavicular lymph node biopsy in July 2019. He was seen by oncology who had him referred to [facility] for a surgical opinion. Surgery was not an option given his extensive disease. He then returned here and was started on chemotherapy. He received fluids on Saturday of this week, followed by cisplatin and pemetrexed which he completed on Saturday. Apparently, he was seen by oncology toward the end of the infusion and they were concerned that he was going to need increased supplementation of his oxygen or perhaps continuous positive airway pressure (CPAP) or bilevel therapy. This had been communicated to pulmonary clinic. Apparently last evening, he became more confused. He had been on oxygen continuously as an outpatient and he had been following his saturations at home. According to his , his saturations were down in the high 40s to 50%. She contacted Dr. Betancourt who then contacted emergency medical services (EMS) and had him brought to the emergency department. In addition to the hypoxemia, she felt he was more confused. In the emergency department, he was found to have acute hypercapnic respiratory failure with a pH of 7.2 and a pCO2 of 71. His pO2 and his saturation were acceptable but I do not know how much oxygen this was drawn on. He was started on noninvasive mechanical ventilation. Additional information found in the emergency department was a lactate of 6.1, a brain natriuretic peptide (BNP) of essentially 15,000, and a troponin I of 0.27. It was not thought that he had sepsis but he was given antibiotics consisting of Zosyn and Rocephin in the emergency department. When I saw Mr. Willis, he had the full face mask in place. He was alert and awake but did not specifically answer any questions. I spoke with his as well as reviewed the recent records from Dr. Roche's office. Apparently, he has had worsening hypoxemia. In reviewing the outpatient records when he was seen by Dr. Roche on 08/12/2019, his room air saturation was 85%. When he was evaluated in [place], they recommended attempting to drain the pleural effusion. The effusion has been present since 2016 and it was thought to be secondary to an autoimmune process. Nonetheless, he underwent a thoracentesis on 08/27/2019. He had 510 mL of cloudy yellow fluid removed. It is not certain that he had a clinical response to removing the fluid. In reviewing Dr. Roche's records in early August 2019, he had noted there were increased interstitial markings that he had thought was representing either a pneumonitis or lymphangitic spread of his malignancy. Because of this, Dr. Roche prescribed a trial of prednisone but he did not achieve any clinical benefit. PAST MEDICAL HISTORY: 1. Mesothelioma, stage IV, diagnosed 07/29/2019 from left supraclavicular lymph node biopsy, not a surgical candidate. First round of chemotherapy consisting of cisplatin and pemetrexed, week of one received 09/14/2019, 09/15/2019 and 09/16/2019. 2. Pulmonary embolism 07/29/2019. 3. Chronic left lower lobe loculated effusion, known since October 2016, lymphocytic exudate. 4. Psoriasis/psoriatic arthritis. 5. Dyslipidemia. 6. Benign prostate hypertrophy. 7. Vitamin D deficiency. 8. Testosterone deficiency. 9. Tobacco usage, recent cessation. SOCIAL HISTORY: Mr. Willis is a former smoker having started at age 22 and having averaged one and a half packs per day. He quit after his admission July 2019. This gives him an approximately 60 pack-year history. He does not drink alcohol. No street drug usage. He does not vape. 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 FAMILY HISTORY: His father is , had diabetes mellitus and cirrhosis. His mother is alive and has no significant medical problems. He has two daughter with no significant medical problems. No known family history of cancer or thromboembolic disease. REVIEW OF SYSTEMS: As per history of present illness (HPI). Remainder of pertinent review of systems is negative. PHYSICAL EXAMINATION: GENERAL: Mr. Willis is lying in bed, appearing mildly anxious. He appears to have aged significantly since I saw him just two months ago. Temperature 98.1, pulse 120s to 130s, respiratory rate 20s, blood pressure 106/69 with a mean arterial pressure (MAP) of 82, SPO2 of 90% on FIO2 of 0.5 via bilevel noninvasive mechanical ventilator of 16/8. HEENT: Anicteric, nares and oropharynx not examined secondary to full face mask. NECK: Supple, without apparent jugular venous distention (JVD), without thyromegaly or masses, trachea is midline. LYMPHATICS: Palpable left supraclavicular lymph node. I did not appreciate right supraclavicular or cervical lymphadenopathy, though examination difficult with mask straps. CHEST: Normal shape. LUNGS: Symmetric excursion, good air entry though absent air entry with dullness to percussion over the left base region perhaps a third to half of the way up. No wheeze, rhonchi, or significant crackles. Normal I:E. No accessory muscle usage or retractions. CARDIOVASCULAR: Tachycardiac, regular rhythm, normal S1, S2. No murmur, rub or gallop appreciated. ABDOMEN: Positive bowel sounds, soft, nondistended, nontender. No hepatosplenomegaly or masses appreciated. EXTREMITIES: Cool with delayed capillary refill. No cyanosis or clubbing. There is 1+ edema on the lateral side of the ankles on both feet but otherwise no edema. Palpable pedal pulses bilaterally. NEUROLOGIC: Alert, awake. No focal deficits. PSYCHIATRIC: Appears anxious. LABORATORY DATA: CBC from this morning showed a hemoglobin of 13, hematocrit 46.9, platelet count 336,000, white blood cell count 13,800 with a differential of 97% neutrophils, 2% lymphocytes, 1% monocytes. Chemistries showed a sodium of 141, potassium 4.7, chloride 98, bicarbonate 34, BUN 65, creatinine 1.9, ionized calcium 5, glucose 132, total bilirubin 0.5, AST 66, ALT 51, alkaline phosphatase 118, CK 154, CK-MB 5, troponin I 0.27, BNP 14,572, total protein 6.3, albumin 2.7, TSH 1.01. INR 1.36. Urinalysis showed a pH of 5.0, specific gravity 1.017, total protein 1+, blood 1+, 8 WBCs, leukocyte esterase negative, 1+ bacteria. Initial arterial blood gas was 7.12/71/89 with a measured saturation of 95% and a base excess -2.9. I do not know how much oxygen this was drawn on. Repeat arterial blood gas after being on NIMV with pressure support of 12 and PEEP of 8 was 7.25/89/83 with a measured saturation of 93% and a base excess of 11. This was on FIO2 0.5. I reviewed his chest x-ray as well as the report from earlier today. That x-ray showed normal-appearing cardiac silhouette and pulmonary vascular shadows. There remained the left lower lung infiltrate per my view and not changed compared to chest x-ray from 09/07/2019. There were increased interstitial markings on today's film in the visualized portion of the left lung as well as the right lung compared to a film from 08/28/2019. An echocardiogram done earlier today was technically difficult. The left ventricle was hyperdynamic and probably grade 1 diastolic dysfunction. Elevated CVP. At least mild to moderate pulmonary hypertension. Small known compressible pericardial effusion. IMPRESSION: 1. Acute and chronic hypercapnic and hypoxemic respiratory failure. Unfortunately, this appears to be a progressive process over the last few weeks and it is very concerning for lymphangitic spread of his malignancy. No findings suggestive of infection. Differential would include a pneumonitis related to his recent chemotherapy. However, again because this appears to be more slowly progressive, I suspect, unfortunately, that this is secondary to malignancy. 2. Abnormal chest x-ray with increased interstitial markings. Differential would include worsening lymphangitic spread versus pulmonary edema versus infection (no history to suggest that). While his brain natriuretic peptide (BNP) is elevated, he had an echocardiogram done earlier today which showed normal left ventricular (LV) function with just grade 1 diastolic dysfunction. 3. Mesothelioma, stage IV, status post first round of chemotherapy with cisplatin and pemetrexed this week. 4. Elevated troponins, likely demand ischemia. 5. Acute renal insufficiency, likely related to chemotherapy (creatinine 0.84 on 09/14/2019). 6. Elevated pro BNP, likely some level of heart failure. 7. Lactic acidosis, likely perfusion. I do not believe this represents sepsis. 8. Pulmonary hypertension, mild/moderate. 9. Diastolic dysfunction, grade 1. 10. Pulmonary emboli, July 2019, on anticoagulation. 11. Significant weight loss over the past several months (40 pounds), likely related to malignancy. 12. Chronic left pleural effusion, no significant change dating back to 2016. 13. Tobacco usage, recent cessation. RECOMMENDATIONS: 1. I spoke with Dr. Richter regarding the echocardiogram results. His central venous pressure (CVP) appears increased, and at the present time, there is no indication either for diuretics or fluids. 2. I spoke with Dr. Betancourt. We discussed possibly empirically using systemic corticosteroids, though again it is not highly likely that this is a pneumonitis. 3. I will not give antibiotics at this point, given that I do not feel it is infective. 4. We will continue on the noninvasive mechanical ventilation. Unfortunately, I am not certain that there is any process treatable to help wean him from this event. 5. I did discuss concerns with his . She is appropriately very tearful, but at this time, they both want him to remain a full code. CRITICAL CARE TIME: 75 minutes not including procedure time. BRONSON
[2019-09-18] MEDS ORDERED: D5W/0.9% SODIUM CHLORIDE 1,000 ML IV SCH (20:30)
[2019-09-18] MEDS ORDERED: APIXABAN 5 MG TAB (ELIQUIS) PO SCH (21:00)
[2019-09-18] MEDS: TAMSULOSIN 0.4 MG CAP PO SCH (21:44)
[2019-09-18] MEDS: cefTRIAXone SOD 1 GM in D5W MINI-BAG PLUS 50 ML IV SCH (21:44)
--- NOTE | 2019-09-18 21:46 | CR ---
DATE OF CARDIAC CONSULTATION: REFERRING PHYSICIAN: Dr. Senior blood INDICATION: Acute respiratory failure, question congestive heart failure. HISTORY OF PRESENT ILLNESS Mr. Willis is previously unknown to me. He is a rather unfortunate gentleman who was recently diagnosed with stage IV mesothelioma. After he was declared not to be a candidate for surgical therapy he started palliative chemotherapy earlier this week. He was initially hydrated and then received cisplatin and pemetrexed on Saturday. Apparently even prior to this chemotherapy he had fairly dramatic progression of respiratory difficulties over the last several weeks. He has been oxygen dependent for several weeks but today it reached the point that he was brought to emergency room by EMS due to acute on chronic respiratory failure that was found to be both hypoxic and hypercapnic. He has been treated with an noninvasive support ventilation with BiPap and there has been modest improvement. What remains a question is the etiology. He has very high BNP around 15,000, but also an echocardiogram that I interpreted earlier today revealed hyperdynamic left ventricle (LV) systolic function with ejection fraction around 70%, arguing against acute form of cardiomyopathy. At bedside the patient was on BiPap. Unfortunately, there was no real communication possible, but he was nodding that there has not been any chest discomfort in the last few weeks, especially not today. He has had progressive shortness of breath. There has been no paroxysmal nocturnal dyspnea (PND), orthopnea until today. He did not gain any weight; quite the contrary there has been weight loss of approximately 40 pounds over last several months. PAST MEDICAL HISTORY 1. Stage IV mesothelioma as above. 2. History of pulmonary embolism diagnosed in July 2019 and treated with chronic anticoagulation with apixaban. 3. Recurrent left lower lobe effusion that has been repeatedly tapped. 4. Psoriasis. 5. Benign prostatic hypertrophy (BPH). 6. History of smoking until very recently. 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 Apparently there is some remote asbestosis exposure during his [employer] duty. He smoked about a pack of cigarettes or more. He started from his 20s and stopped just recently. FAMILY HISTORY Father was diabetic, had liver cirrhosis. His mother is alive. Essentially the family history is noncontributory. REVIEW OF SYSTEMS: Essentially unobtainable from the patient; mostly obtained from the hospital records and as an outline above. PHYSICAL EXAMINATION The patient appears to be both acutely and chronically ill when I saw him around noontime. Blood pressure was 95/69, heart rate 130 beats per minute, sinus tachycardia. He was afebrile. Saturation was only 91% on 50% FIO2 by BiPap. He was alert but appropriate when I asked simple questions. Jugular venous pressure is difficult to assess, but does not appear very high by physical exam, but in setting of BiPAP it is difficult to patrol judge. Lungs are reasonably clear. Somewhat diminished breath sounds especially over left base but I do not appreciate any crackles or rhonchi or wheezing. Heart: Exam reveals regular tachycardia without obvious gallop, rub or murmur. Abdomen is soft. No guarding. No tenderness. Appears that the liver is slightly enlarged. Extremities are free of edema. Peripheral pulses are palpable. His acral segments are relatively cold and capillary refill is delayed. LABORATORY His CBC reveals WBC count 13.8, hemoglobin 13, hematocrit 46.9 and platelet count 336,000. Basic metabolic panel on admission reveals troponin 0.27. NT-ProBNP almost 15,000, albumin 2.7, TSH 1.1 and lactic acid 6.1; that later decreased to 2.3. ABGs as of 08:30 this morning revealed pH 7.2 with pCO2 71, pO2 88 and saturation 95%. Urinalysis is 1+ positive for protein but negative for ketones. Chest x-ray reveals diffuse interstitial and ground-glass infiltrates with likely left pleural effusion. It does not appear to be dramatically different compared to prior study from September 07 and maybe there is some worsening. No obvious cardiomegaly. An echocardiogram performed at bedside earlier today reveals hyperdynamic LV systolic function with no hemodynamically significant valvular disease, elevated central venous pressure and probably moderate pulmonary hypertension. An ECG reveals sinus tachycardia and no acute ST-segment shift. ASSESSMENT/PLAN Mr. Willis is a rather unfortunate 63-year-old man who has stage IV mesothelioma that presents with acute on chronic respiratory failure that is both hypoxic and hypercapnic. Even though his NT-ProBNP is extremely elevated I do not believe that the presentation is consistent with congestive heart failure. I suspect that he has progressive disease, possibly with lymphangitic spread or I would not even rule out the possibility of pneumonitis as a response to chemotherapy, even though it is my understanding that with this form of chemotherapy that would be exceedingly rare. He has minimal troponin elevation, but no chest discomfort, which most likely is related to stress of hypoxemia and high respiratory work. Unfortunately I do not believe there is much I can offer to this gentleman. I believe that his prognosis is poor and probably is principally related to the progression of underlying disease. From my perspective, I would agree with administration of high dose steroids with the idea to relieve some of the underlying edema and possibly allow better oxygenation but I do not believe that there is much role for diuresis. I will follow the patient with you, but I believe that it is appropriate to approach the topic of withdrawing supportive care because it is my opinion it is very likely that he will progress further and intubation in my opinion would not provide a pathway to any outcome that would look favorable. BRONSON
--- NOTE | 2019-09-18 22:04 | CCN ---
DATE: 09/18/2019 NOTE: Through the course of the day, Mr. Willis became more tachypneic. Adjustments were made in his noninvasive mechanical ventilator. After those adjustments, his repeat arterial blood gas was 7.31/71/80 with a measured saturation of 95%. He has had some anxiety and did receive one dose of 1 mg of Versed with some relief. He remains responsive. I spoke with Dr. Cornelius after his evaluation. I also spoke again with oncology. It is still not clear what expectations or what time frame it would be as to whether we would see any response to chemotherapy. We will add broad-spectrum antibiotics in case there is a remote possibility of an infective component, and he was started on Zosyn and Rocephin. I had a prolonged discussion tonight with his and two daughters regarding my review of the records from Dr. Roche, as well as the continued progression of the interstitial infiltrates on the chest x-ray that is strongly suggestive of progressive lymphangitic spread. I discussed with them that I had considered a chest CT scan, but with his tachypnea, that it is not likely to be of value because of motion artifact. It also would not change treatment at this time. I discussed with them that NIMV and intubation are typically "bridges" to allow time for treatment, I also discussed with them that if he fails NIMV, I am not certain there would be any significant advantage to intubating him for mechanical ventilation. This would be another bridge, and unless there is thought there is a reversible cause, they may want to consider comfort measures at that time. I answered multiple questions for them. They also asked me to contact his sister in [place]. I spoke to her and recommended that she come out at this time to see him as I am not certain that he is going to survive this admission. She had already booked a flight for tomorrow morning once she heard he was admitted to the intensive care unit. Additional critical care time: 35 minutes not including procedure time. BRONSON
[2019-09-18] MEDS: PIPERACILLIN/TAZOBACTAM SOD 3.375 GM in D5W MINI-BAG PLUS 50 ML IV SCH (22:35)
[2019-09-19] VITALS (20 sets, daily range): BP systolic 101–132; BP diastolic 69–90; O2SAT 90–94
[2019-09-19] MEDS: methylPREDNISolone INJ 125 MG/2 ML VIAL (J2930) IV SCH ×4 (00:09→17:03)
[2019-09-19] MEDS ORDERED: FUROSEMIDE 20 MG/2 ML VIAL (J1940) IV ONE (00:30)
[2019-09-19] MEDS: PIPERACILLIN/TAZOBACTAM SOD 3.375 GM in D5W MINI-BAG PLUS 50 ML IV SCH ×4 (04:19→21:52)
[2019-09-19 05:03] LABS: BASO % 0.1 % (0.0-1.0); HEMATOCRIT 40.3 % (42.0-52.0); HEMOGLOBIN 12.3 g/dl (13.5-17.5); LYMPH % 0.5 % (24.0-44.0); MEAN CORPUSCULAR HEMOGLOBIN 24.9 pg (27.0-33.0); MEAN CORPUSCULAR HGB CONC 30.5 g/dl (32.0-36.5); MEAN CORPUSCULAR VOLUME 81.6 fl (80.0-96.0); MONO % 0.2 % (0.0-5.0); NEUTROPHILS # 14.4 10^3/uL (1.5-8.5); NEUTROPHILS % 98.9 % (36.0-66.0); PLATELET COUNT, AUTOMATED 274 10^3/uL (150-450); RED BLOOD COUNT 4.94 10^6/uL (4.30-6.10); WHITE BLOOD COUNT 14.6 10^3/uL (4.0-10.0)
[2019-09-19 05:20] LABS: LYMPH # 0.1 10^3/uL (1.5-5.0)
[2019-09-19 05:31] LABS: ALBUMIN 2.5 GM/DL (3.2-5.2); ALT/SGPT 39 U/L (12-78); BILIRUBIN,TOTAL 0.3 MG/DL (0.2-1.0); BLOOD UREA NITROGEN 66 MG/DL (7-18); CALCIUM LEVEL 8.8 MG/DL (8.8-10.2); CARBON DIOXIDE LEVEL 37 MEQ/L (21-32); CHLORIDE LEVEL 101 MEQ/L (98-107); CHOLESTEROL LEVEL 145 MG/DL (< 200); CPK CREATINE PHOSPHOKINASE 69 U/L (39-308); CREATININE FOR GFR 1.26 MG/DL (0.70-1.30); GLOMERULAR FILTRATION RATE > 60.0 (>49); GLUCOSE, FASTING 125 MG/DL (70-100); LDH LACTATE DEHYDROGENASE 160 U/L (87-241); PHOSPHORUS LEVEL 3.5 MG/DL (2.5-4.9); POTASSIUM SERUM 4.2 MEQ/L (3.5-5.1); SODIUM LEVEL 144 MEQ/L (136-145); TOTAL PROTEIN 5.6 GM/DL (6.4-8.2); TRIGLYCERIDES LEVEL 92 MG/DL (<150)
[2019-09-19] MEDS: IPRATROPIUM 0.5MG/ALBUTEROL 2.5MG INH SOL UD 3ML (DUONEB)(J7620) NEB SCH ×4 (07:23→20:41)
[2019-09-19] MEDS: CYANOCOBALAMIN 500 MCG TAB PO SCH (08:19)
[2019-09-19] MEDS: cefTRIAXone SOD 1 GM in D5W MINI-BAG PLUS 50 ML IV SCH ×2 (08:19→20:33)
[2019-09-19] MEDS ORDERED: FOLIC ACID 1 MG TAB PO SCH (09:00)
[2019-09-19] MEDS: FOLIC ACID 1 MG in NS 50 ML IV SCH (09:08)
[2019-09-19 09:39] LABS: ABG BASE EXCESS 11.8 (-2.0-2.0); ABG HCO3 39.3 MEQ/L (22.0-26.0); ABG O2 SATURATION 97.8 % (95.0-99.0); ABG PARTIAL PRESSURE O2 102.8 mmHg (75.0-100.0); ABG STANDARD HCO3 35.6 MEQ/L (22.0-26.0); ABG TOTAL CO2 41.4 MEQ/L (23.0-31.0); ABG pH (ARTERIAL) 7.388 UNITS (7.350-7.450)
[2019-09-19 09:40] LABS: ABG PARTIAL PRESSURE CO2 66.8 mmHg (35.0-45.0)
--- NOTE | 2019-09-19 12:04 | IPN ---
DATE: 09/19/2019 Mr. Willis is a bit better than he was yesterday. He is able to sit in his bedside chair without BiPap with high-flow oxygen and feeling reasonably comfortable. He can even speak in full sentences but still obviously he is quite short of breath. Denies any chest pain or sensation of palpitations. Vital signs: Blood pressure 120/72, heart rate has been consistently in 120s and 130s, sinus tachycardia. His fluid balance yesterday was recorded as negative 400 and he already put out 2 liters of urine today. Weight is 58.2 kg. He is alert and oriented. His jugular venous pressure does not appear high. Lungs are reasonably clear on the right and on the left it is diminished over probably about one-third to one-half of the lower lung field. Heart exam reveals regular tachycardia. I do not appreciate any obvious murmur or gallop. Abdomen is soft. Extremities are free of edema. LABORATORY: Hemoglobin 12.3, hematocrit 40, platelet count 274,000. Basic metabolic panel: Sodium 144, potassium 4.2, BUN 66, creatinine 1.3, glucose 125. Normal liver function tests. His troponin is 0.46 and albumin is 2.5. ASSESSMENT/PLAN: Mr. Willis is a 64-year-old man who has recently diagnosed mesothelioma that is stage IV. It is unfortunately inoperable and he received first course of chemotherapy earlier this week when he was admitted with progressive respiratory failure. Even though his BNP is elevated, I suspect it is principally due to tachycardia, hypoxemia and resultant strain on his heart, but I believe that the principal problem is pulmonary, either he has some form of pneumonitis or possibly progressive lymphangitic spread of the tumor. He seemed to be little bit better after he received high-dose steroids yesterday. I am not quite sure whether further chemotherapy will be beneficial but apparently the family is discussing further options. I do not believe that there is much from cardiac perspective I can contribute but feel free to contact me if any assistance is desired. BRONSON
--- NOTE | 2019-09-19 13:00 | REP ---
Left lower extremity Duplex Doppler venous ultrasound: Real time compression and duplex Doppler interrogation of the left lower extremity deep venous system is performed. The left common femoral, superficial femoral and popliteal veins are fully compressible with transducer pressure and demonstrate normal spontaneous and phasic flow, without evidence of deep venous thrombosis. Impression: No evidence of deep venous thrombosis of the left lower extremity femoral popliteal venous system. Electronically Signed by Abdirahman Rutherford MD 09/19/2019 12:52 P
--- NOTE | 2019-09-19 14:36 | ECGEPIP ---
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
--- NOTE | 2019-09-19 14:43 | IPNPDOC ---
Subjective Date Seen The patient was seen on 09/19/19. Subjective Chief Complaint/HPI He has weaned off of his NIPPV and is saturating reasonably on 8L via NC. While this isn't wonderful, it is a big improvement from when he came in. He reports that he generally just feels tired and all washed out today. He has no other specific complaints. General: Denies: Normal Appetite Constitutional: Reports: Malaise, Fatigue, Weight Loss; Denies: Chills, Fever Pulmonary: Reports: Dyspnea; Denies: Cough Cardiovascular: Denies: Palpitations, Edema Objective Physical Examination General Exam: Positive: Alert, Cooperative, No Acute Distress (laying on the bed talking to his when I entered the room) Eye Exam: Positive: Conjunctiva & lids normal; Negative: Sclera icteric ENT Exam: Negative: Mucous membr. moist/pink (slighly dry) Neck Exam: Positive: Supple; Negative: JVD, Lymphadenopathy Chest Exam: Positive: Normal air movement, Rhonchi (noted in his lung ervin bilaterally) Heart Exam: Positive: Rate Normal, Normal S1, Normal S2; Negative: Murmurs Abdomen Exam: Positive: Normal bowel sounds, Soft; Negative: Tenderness Extremity Exam: Negative: Edema Psych Exam: Positive: Mental status NL, Oriented x 3 Assessment /Plan Problems (1) Acute respiratory acidosis Response to Treatment: Improving Discussed With: Nurse, Manager Action, Patient, Family with Pt Consent Problem Specific Plan: Monitor Clinically, Repeat Tests Problem Text: His respiratory status seems to be improving. He continues to be monitored closely by Dr. Gandara. Will defer to her for critical care issues. 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 Betancourt. He has locally advanced clinical stage IV, T4N2M1 malignant mesothelioma of the plura. He is day five after cisplatin/pemetrexed/bevacizumab. Per Dr. Hsieh this is often the worst day for patients. He clearly has some respiratory and cardiac toxicity related to this combination. The question is whether he will recover well enough to be able to have his next round in 3-4 weeks. This question doesn't seem to be answered yet. (3) Chemotherapy-induced cardiomyopathy Status: Acute Discussed With: Manager Action, Patient, Family with Pt Consent Problem Specific Plan: Monitor Clinically Problem Text: I spoke with Dr. Richter about this patient. He feels that there is cardiotoxicity to the regimen, but there is nothing that he can do to improve this. It doesn't seem to be of coronary arterial origin. He will continue to monitor the patient with us, but may not be putting in daily notes. (4) Tachycardia Status: Chronic Problem Specific Plan: Monitor Clinically Problem Text: Per the patient his tachycardia has been present even before the chemotherapy. Dr. Richter is of the opinion that it is physiologic tachycardia related to hypoxemia and his mesothelioma. He does not suggest we do anything to slow the heart rate down since this will be eliminating his ability to compensate. His TSH was checked and is WNL. (5) Pulmonary embolism Status: Acute Problem Specific Plan: Monitor Clinically Problem Text: He was dx with a PE in 07/2019. He is on full tx doses of Lovenox. This certainly could contribute to his tachycardia. (6) Pleural effusion on left Status: Chronic Problem Specific Plan: Monitor Clinically Problem Text: This has been present since at least 2016. Dr. Gandara has considered draining it to see if it helps with his respiratory status, but since he is improving without the procedure we will defer that for now. Plan/VTE VTE Prophylaxis Ordered?: Yes (tx doses of Lovenox) Plan Advance Directives: Other Advance Directive (I had a conversation with him about his advanced directives. He wishes to be FULL CODE. He does not want to be kept alive on life sustaining treatment if he does have to be coded. His (and HCP) knows his wishes and will help us if we need to understand what he would want.) VS, I&O, 24H, Fishbone Vital Signs/I&O Vital Signs Date Time Temp Pulse Resp B/P (MAP) Pulse Ox O2 Delivery O2 Flow Rate FiO2 09/19/19 12:00 6.0 09/19/19 12:00 98.5 133 22 108/73 (85) 95 Nasal Cannula 09/19/19 09:01 50 I&O- Last 24 Hours up to 6 AM 09/19/19 06:00 Intake Total 1350 ml Output Total 3465 ml Balance -2115 ml Laboratory Data 24H LABS Laboratory Tests 2 09/18/19 17:59: Blood Gas Bicarbonate Standard 30.1H, Arterial Blood pH 7.308L, Arterial Blood Partial Pressure CO2 71.1*H, Arterial Blood Partial Pressure O2 79.7, Arterial Blood Total CO2 37.0H, Arterial Blood HCO3 34.8H, Arterial Blood Base Excess 6.2H, Arterial Blood Oxygen Saturation 94.7L 09/19/19 04:15: Immature Granulocyte % (Auto) 0.3, Neutrophils (%) (Auto) 98.9H, Lymphocytes (%) (Auto) 0.5L, Monocytes (%) (Auto) 0.2, Eosinophils (%) (Auto) 0.0, Basophils (%) (Auto) 0.1, Neutrophils # (Auto) 14.4H, Lymphocytes # (Auto) 0.1L, Monocytes # (Auto) 0.0, Eosinophils # (Auto) 0.0, Basophils # (Auto) 0.0, Nucleated Red Blood Cells % (auto) 0.0, Anion Gap 6L, Glomerular Filtration Rate > 60.0, Calcium Level 8.8, Phosphorus Level 3.5, Magnesium Level 2.0, Total Bilirubin 0.3, Aspartate Amino Transf (AST/SGOT) 36, Alanine Aminotransferase (ALT/SGPT) 39, Alkaline Phosphatase 99, Lactate Dehydrogenase 160, Total Creatine Kinase 69, Troponin I 0.46#H, Total Protein 5.6L, Albumin 2.5L, Albumin/Globulin Ratio 0.81L, Triglycerides Level 92, Cholesterol Level 145 09/19/19 09:23: Blood Gas Bicarbonate Standard 35.6H, Arterial Blood pH 7.388, Arterial Blood Partial Pressure CO2 66.8*H, Arterial Blood Partial Pressure O2 102.8H, Arterial Blood Total CO2 41.4H, Arterial Blood HCO3 39.3H, Arterial Blood Base Excess 11.8H, Arterial Blood Oxygen Saturation 97.8 CBC/BMP Laboratory Tests 09/19/19 04:15 Microbiology Microbiology 09/18/19 Blood Culture - Preliminary, Resulted No growth after 24 hours . All specim... 09/18/19 Blood Culture - Preliminary, Resulted No growth after 24 hours . All specim... 09/18/19 Respiratory Virus Panel (PCR) ([id number]) - Final, Complete Leonel Vela MD Sep 19, 2019 14:43
--- NOTE | 2019-09-19 14:52 | REP ---
BILATERAL LOWER EXTREMITY DUPLEX DOPPLER ARTERIAL ULTRASOUND: Real-time ultrasound evaluation and duplex Doppler interrogation of bilateral lower extremity arterial systems is performed. BIB right is 1.0 and left 1.1. There is minimal scattered plaquing bilaterally. No significant stenosis is seen and there is certainly no evidence of arterial occlusion. Triphasic waveforms are seen diffusely bilaterally. There are normal flow velocities bilaterally. PEAK SYSTOLIC VELOCITY RIGHT LEFT Common femoral artery 55.9 cm/s 66.3 cm/s Profunda 54.5 53.9 SFA 102.0 88.6 Popliteal 62.6 47.4 Proximal anterior tibial artery 64.2 62.3 Tibioperoneal trunk 81.6 72.7 Proximal posterior tibial artery 54.4 49.6 Distal posterior tibial artery 64.1 52.6 Distal anterior tibial artery 67.3 48.2 IMPRESSION: Minimal scattered plaquing bilaterally without evidence of stenosis or occlusion of the bilateral lower extremity arterial systems. Electronically Signed by Abdirahman Rutherford MD 09/19/2019 04:07 P
--- NOTE | 2019-09-19 16:18 | IPN ---
DATE: 09/19/2019 DIAGNOSIS: A 63-year-old man with malignant mesothelioma, locally advanced, admitted with hypercapnic respiratory failure, partially recovered, day 5, cycle one cisplatin/pemetrexed as salvage treatment. OVERNIGHT EVENTS: Overall, Mr. Willis says he feels so-so. He feels better and is more alert than on admission. He has desaturated at times. Is currently on 8 liters. He in the family with all of his doctors have discussed DO NOT RESUSCITATED/DO NOT INTUBATE. He is still contemplating his preferences and wishes. He is seen at the bedside reclining, not in distress, with nasal cannula in place. Heart rate 120 on the monitor. Vital signs notable for respiratory rate ranging on the monitor between 20-30, blood pressure 108/73, oxygen saturation 95%. Left foot coolness without pallor was noted earlier, and I confirm this on exam. An arterial ultrasound study result is pending. Dorsalis pedis pulse present bilaterally. On lung exam there are anterior bilateral crackles. On heart exam: Tachycardia with regular rhythm. LABORATORY DATA: WBC 14, hemoglobin 12, hematocrit 40, platelets 274. Electrolytes notable for carbon dioxide 37, BUN 66, creatinine 1.2, GFR greater than 60. Most recent lactic acid 2.3 down from 6.1, calcium, phosphorus, magnesium all normal. Liver functions normal. Albumin 2.5. Troponin at 4 a.m. 0.46, up from 0.27 the day prior. IMPRESSION: Locally advanced clinical stage IV, T4N2M1 (based on celiac axis nodes), malignant mesothelioma of the pleura, on 6-8 liters oxygen after admission for hypercapnic respiratory failure. D 5 cisplatin/ pemetrexed/bevacizumab. Persistent mild "dictation cut off" Likely demand ischemia driven mild bump in troponin; cardiology opines unlikely primary cardiac disease. Eastern Cooperative Oncology Group (ECOG) performance status 4. PLAN/RECOMMENDATIONS: 1. Continue current respiratory support of therapy. 2. Anticipate possible white blood cells (WBC) and platelet count drops over the next 5 days. Typically following chemotherapy there is a 10-day kiran window in which myelosuppressive effects are seen. This patient did not receive G-CSF support. For neutropenia, would give filgrastim 300 mcg subcutaneous daily until an absolute neutrophil count reaches 1500. Will continue to follow closely.
[2019-09-19] MEDS: PANTOPRAZOLE 40MG TAB (PROTONIX) PO SCH (17:03)
[2019-09-19 17:26] LABS: CREATININE FOR GFR 1.16 MG/DL (0.70-1.30); GLOMERULAR FILTRATION RATE > 60.0 (>49)
--- NOTE | 2019-09-19 17:57 | CCN ---
DATE: 09/19/2019 Mr. Willis remains critically ill with acute hypercapnic and hypoxemic respiratory failure. He remained on noninvasive mechanical ventilation overnight. This morning an arterial blood gas was done, which showed normalization of his pH with persistent respiratory acidosis and hypoxemia. Because of the normalization of his pH, he was taken off the noninvasive mechanical ventilator. He remains very weak but does not specifically indicate shortness of breath. No cough. No chest pain or pressure. No nausea or emesis. He is requesting food, most specifically coffee and chicken noodle soup. OBJECTIVE: PHYSICAL EXAMINATION GENERAL: Mr. Willis is lying in bed and is ill-appearing. No cough at evaluation. VITAL SIGNS: Temperature 97.2 with a maximal temperature of 98 8, pulse 130s, respiratory rate 22, blood pressure 115/79 with a mean arterial pressure (MAP) of 91, blood pressure 112/77 with a MAP of 89. SpO2 initially was 96% when I first saw him on the bilevel device with an FiO2 of 0.5 and now is 93% on 8 liters by nasal cannula. HEENT: Nares patent bilaterally. Oropharynx clear. Mildly dry mucosa. NECK: Supple. Neck without thyromegaly or masses. Trachea is midline. LYMPHATIC: Palpable left supraclavicular lymph node. No palpable right or cervical lymphadenopathy. CHEST: Normal shaped lungs. Symmetric excursion. Good air entry with absent air entry at the left base. There are fine crackles, predominantly in the mid and lower lobes but also heard anteriorly. No wheeze or rhonchi. Normal inspiratory to expiratory (I-to-E) . No accessory muscle usage or retractions. CARDIOVASCULAR: Tachypneic., regular rhythm, normal S1, S2. No murmur, rub, or gallop appreciated. ABDOMEN: Positive bowel sounds. Soft, nondistended, nontender. No splenomegaly or masses appreciated. EXTREMITIES: Both upper extremity and right lower extremity were warm. There remains 1+ edema in the lateral sides of both ankles. The left lower extremity is cool with delayed capillary refill. There is no mottling, and pedal pulses are palpable bilaterally. NEUROLOGIC: Alert and awake. Uncertain if he is truly oriented. No focal deficits. PSYCHIATRIC: Appears appropriate. LABORATORY DATA: CBC from this morning shows a hemoglobin of 12.3, hematocrit 40.3, platelet count 274,000, white blood cell count 14,600 with a differential of 99% neutrophils, 0.5% lymphocytes. Chemistries from this morning show sodium 144, potassium 4.2, chloride 100, bicarbonate 37, anion gap 6, BUN 66, creatinine 1.3, GFR greater than 60, glucose 125, calcium 8.8, phosphorus 3.5, magnesium 2.0. Total bilirubin 0.3, AST 36, ALT 39, alkaline phosphatase 99. LDH 160. CK 69, troponin-I 0.46. Total protein 5.6, albumin 2.5. I had been contacted last night that he had sounded more wet. He had been on intravenous (IV) fluids at 75 an hour to give him some dextrose, and that was discontinued and 20 mg of Lasix was administered. Arterial blood gases this morning on NIMV with a pressure support of 16 and a positive end-expiratory pressure (PEEP) of 6 were 7.39/67/103 with a measured saturation of 98%. Yesterday's intake and output were 1300 in and 1695 out, making him -395. Thus far today, 890 in and 2237 out, making him -1347. Weight 58.2 kg. IMPRESSION: 1. Acute on chronic hypercapnic and hypoxemic respiratory failure. The acute hypercapnic difficulty has resolved with noninvasive mechanical ventilation. He remains on oxygen supplementation. 2. Chronic hypercapnia. Etiology is unknown. He does not have a history of chronic obstructive pulmonary disease (COPD), and I suspect that that is secondary to the restrictive lung disease that he has as well as his increased infiltrates and possibly weakness. 3. Abnormal chest x-ray with increased interstitial markings. The concern is worsening lymphangitic spread. There is also thought to be some pulmonary edema present. 4. Mesothelioma, stage IV, status post first round of chemotherapy with cisplatin and pemetrexed. 5. Pulmonary emboli, July 2019, on anticoagulation. 6. Chronic left pleural effusion with no significant change dating back to 2017. He did have a recent thoracentesis, and the fluid has started to reaccumulate. 7. Cold lower extremity edema. There is no mottling, and he has pulse, But he is high risk for deep vein thrombosis (DVT), even on anticoagulation. 8. Acute renal insufficiency, likely secondary to chemotherapy; creatinine 0.84 on 09/14/2019. 9. Elevated troponins, felt secondary to the demand ischemia. Cardiology following. 10. Pulmonary hypertension, mild/moderate. 11. History of tobacco usage. Recent cessation. 12. Infectious disease (ID). He is on Rocephin and Zosyn, though he is not thought to have an infection, but he is critically ill with an abnormal chest x-ray 13. DVT prophylaxis: He is fully anticoagulated with Eliquis. RECOMMENDATIONS: 1. I have spoken at length with Dr. Hsieh regarding his disease process. She discussed with me his chemotherapy and the expectations over the next several days. 2. We will continue on systemic corticosteroids at the present time. In my discussion with Dr. Hsieh, patients are frequently placed on Decadron for 3 days post chemotherapy. We will readdress as needed for this medication in the near future. 3. Given his severe illness, anticoagulation, and steroids, will start him on stress ulcer prophylaxis with proton pump inhibitor. 4. At the present time, we will keep him off non-invasive mechanical ventilation (NIMV). If he appears to have a clinical change or respiratory distress, I have asked that an arterial blood gas be obtained before starting a device. I have also made it clear that the results of the ABG do not need to be known before starting the device but I would like it to be drawn so we better assess whether he truly needed NIMV for an acid base change. 5. Will continue on supplemental oxygen with a goal SpO2 greater than 88%. 6. Will discontinue the Eliquis and start him on Lovenox. The reason for doing this is in case procedures are needed in the immediate future, such as re-draining his pleural fluid. It is not clear whether he had a clinical response to the thoracentesis, but if he did, given his hypoxemia and shortness of breath, it may be reasonable to perform another thoracentesis and consider placement of a PleurX. 7. I have updated his family. I again discussed code status. They are considering limitations such as no heroic measures but want to discuss it with his sister first. CRITICAL CARE TIME: 45 minutes, not including procedure time. BRONSON
[2019-09-19] MEDS: TAMSULOSIN 0.4 MG CAP PO SCH (20:33)
[2019-09-19] MEDS: ENOXAPARIN 100MG/1ML SYRINGE (J1650) SC SCH (20:34)
--- NOTE | 2019-09-19 22:10 | ECGEPIP ---
[facility] - ED Test Date: 2019-09-18 Pat Name: HORACIO OROSCO Department: Room: - Gender: Male Vp Public Relations: : 1955 Requested By: Raffaele Chandler Order Number: [id number] Reading MD: Nataliya Melendez Measurements Intervals [place] Rate: 127 P: 65 [place]: 137 QRS: 105 QRSD: 95 T: 10 QT: 298 QTc: 433 Interpretive Statements SINUS TACHYCARDIA MARKED RIGHT AXIS DEVIATION NSTTW abnormalities INCREASED RATE 07/10/16 Electronically Signed on 09-19-2019 22:10:33 EST by Nataliya Melendez
[2019-09-20] VITALS (25 sets, daily range): BP systolic 110–141; BP diastolic 68–92; O2SAT 93–98
[2019-09-20] MEDS: methylPREDNISolone INJ 125 MG/2 ML VIAL (J2930) IV SCH ×3 (00:54→11:53)
[2019-09-20] MEDS: PIPERACILLIN/TAZOBACTAM SOD 3.375 GM in D5W MINI-BAG PLUS 50 ML IV SCH ×2 (03:24→09:10)
[2019-09-20 05:01] LABS: HEMATOCRIT 36.7 % (42.0-52.0); HEMOGLOBIN 10.9 g/dl (13.5-17.5); MEAN CORPUSCULAR HEMOGLOBIN 24.5 pg (27.0-33.0); MEAN CORPUSCULAR HGB CONC 29.7 g/dl (32.0-36.5); MEAN CORPUSCULAR VOLUME 82.7 fl (80.0-96.0); PLATELET COUNT, AUTOMATED 235 10^3/uL (150-450); RED BLOOD COUNT 4.44 10^6/uL (4.30-6.10); WHITE BLOOD COUNT 13.6 10^3/uL (4.0-10.0)
[2019-09-20 05:20] LABS: LYMPHOCYTES 1 % (16-44); NEUTROPHILS 99 % (28-66); PLATELET CLUMPS SMALL AMT; PLATELET ESTIMATE NORMAL (NORMAL); SMUDGE CELLS 1+
[2019-09-20 05:21] LABS: ANISOCYTOSIS 1+; HYPOCHROMASIA 2+
[2019-09-20 05:27] LABS: ALBUMIN 2.2 GM/DL (3.2-5.2); ALT/SGPT 30 U/L (12-78); BILIRUBIN,TOTAL 0.3 MG/DL (0.2-1.0); BLOOD UREA NITROGEN 64 MG/DL (7-18); CALCIUM LEVEL 8.8 MG/DL (8.8-10.2); CARBON DIOXIDE LEVEL 38 MEQ/L (21-32); CHLORIDE LEVEL 101 MEQ/L (98-107); CHOLESTEROL LEVEL 130 MG/DL (< 200); CPK CREATINE PHOSPHOKINASE 54 U/L (39-308); CREATININE FOR GFR 0.96 MG/DL (0.70-1.30); GLOMERULAR FILTRATION RATE > 60.0 (>49); GLUCOSE, FASTING 124 MG/DL (70-100); LDH LACTATE DEHYDROGENASE 205 U/L (87-241); PHOSPHORUS LEVEL 3.2 MG/DL (2.5-4.9); POTASSIUM SERUM 4.3 MEQ/L (3.5-5.1); SODIUM LEVEL 145 MEQ/L (136-145); TOTAL PROTEIN 5.1 GM/DL (6.4-8.2); TRIGLYCERIDES LEVEL 118 MG/DL (<150)
[2019-09-20] MEDS: IPRATROPIUM 0.5MG/ALBUTEROL 2.5MG INH SOL UD 3ML (DUONEB)(J7620) NEB SCH ×4 (07:12→20:07)
[2019-09-20] MEDS: cefTRIAXone SOD 1 GM in D5W MINI-BAG PLUS 50 ML IV SCH (09:10)
[2019-09-20] MEDS: FOLIC ACID 1 MG in NS 50 ML IV SCH (09:10)
[2019-09-20] MEDS: CYANOCOBALAMIN 500 MCG TAB PO SCH (09:11)
[2019-09-20] MEDS: PANTOPRAZOLE 40MG TAB (PROTONIX) PO SCH (09:11)
--- NOTE | 2019-09-20 11:06 | REP ---
CHEST, SINGLE VIEW: Single view of the chest is performed and compared to a prior study of 09/18/2019. Consolidative opacity in the left lower lobe with adjacent loculated pleural air is unchanged. Diffuse interstitial infiltrates are unchanged. Heart and mediastinum are unchanged. IMPRESSION: Stable exam. Electronically Signed by Abdirahman Rutherford MD 09/20/2019 11:18 A
--- NOTE | 2019-09-20 19:53 | IPN ---
DATE: 09/20/2019 NOTE: Mr. Willis did well overnight off noninvasive mechanical ventilator. His oxygen requirements have been weaned down to between 3 and 4 liters. He reports that he is feeling better. He notes weakness and is interested in working with physical therapy. His voice is stronger today. He notes a cough, but has difficulty with expectoration. What he is able to expectorate is clear. No wheezing. No chest pain or pressure. No nausea or emesis. No other concerns expressed. OBJECTIVE: PHYSICAL EXAMINATION: GENERAL: Mr. Willis is lying in bed no acute distress. He can complete full sentences. No cough on evaluation. VITAL SIGNS: Temperature 97.6, pulse 125, respiratory rate 22, SpO2 89=93% on FiO2 to 3-4 liters, maximum temperature (T-max) 98.3. HEENT: Anicteric. Nares: Patent bilaterally. Oropharynx clear. No lesions. NECK: Supple, without jugular venous distention (JVD), thyromegaly or masses, trachea is midline. LYMPHATICS: Palpable left cervical lymph node and right posterior cervical chain lymph node (possibly not felt earlier because of straps related to noninvasive mechanical ventilation (NIMV)). CHEST: Normal size. LUNGS: Symmetric excursion, good air entry with absent breath sounds at the left base. There are scattered fine crackles heard posteriorly. No wheeze or rhonchi. Normal Inspiratory to expiratory ratio (I:E). No accessory muscle usage or retractions. CARDIOVASCULAR: Tachycardiac, regular rhythm, normal S1, S2, no murmur, gallop appreciated. ABDOMEN: Positive bowel sounds, soft, nondistended, nontender, no hepatosplenomegaly or masses appreciated. EXTREMITIES: Warmer left lower extremity, but still cool. Without clubbing, cyanosis or significant edema, positive pedal pulses bilaterally. [id number]: Alert, awake and appears oriented, though he still has some level of confusion. PSYCHIATRIC: Appears appropriate. LABORATORY DATA: Complete blood count (CBC)shows a hemoglobin of 10.9, hematocrit 36.7, platelet count 135,000 and white blood cell count 13,600, with a differential of 99% neutrophils and 1% lymphocytes. Chemistry shows sodium 145, potassium 4.3, chloride 101, bicarbonate 38, anion gap 6, BUN 64, creatinine 0.96, glucose 124, calcium 8.8, phosphorus 3.2, magnesium 2.0. Total bilirubin 0.3, AST 31, ALT 30, alkaline phosphatase 83, LDH 205. CK 54. Total protein 5.1, albumin 2.2. Yesterday's intake and output (I and O) was 1340 and 2587 out making him negative 1247. Thus far today, 900 in and 600 out, making him positive 300. Weight 57.7 kg. I reviewed his chest x-ray from earlier today as well as the report. That x-ray showed normal-appearing cardiac silhouette and pulmonary vascular shadows. Normal-appearing mediastinal and hilar regions. There is elevated left hemidiaphragm, and pleural effusion that is unchanged. There are diffuse interstitial infiltrates that are also unchanged compared to his chest x-ray from 09/18/2019. IMPRESSION: 1. Acute and chronic hypercapnic and hypoxemic respiratory failure, clinical improvement. It is thought possibly that the improvement may have been secondary to corticosteroids versus adjustment to significant amount of fluids that were given with chemotherapy. 2. Chronic hypercapnia, etiology unknown. It is thought possibly related to his restrictive lung disease as well as increased infiltrates felt lymphocytic spread. 3. Abnormal chest x-ray with increased interstitial marking. Concern remains for worsening lymphangitic spread with possibly some component of pulmonary edema. 4. Mesothelioma, stage IV, status post first round of chemotherapy with cisplatin, pemetrexed. His next chemotherapy is scheduled in three weeks after his initial therapy. 5. Chronic left pleural effusion with no significant change, dating back to 2017. 6. Acute renal insufficiency felt secondary to chemotherapy, improving. Creatinine was 0.84 on 09/14/2019. 7. Elevated troponins, felt secondary to demand ischemia. Cardiology following. 8. Pulmonary hypertension, mild/moderate. 9. Infectious disease (ID): On Rocephin and Zosyn, though he is not felt to have an infection. He was critically ill at the time and it was added because of his level of illness. 10. Deep venous thrombosis (DVT) prophylaxis, fully anticoagulated on Lovenox. He was changed to this modality to allow for any procedures that may be indicated. RECOMMENDATIONS: 1. At this point, as he has been on corticosteroids for three days, we will stop them. 2. We will also stop antibiotics as suspicion of infection was low and he is clinically better with no evidence of acute consolidated region or symptoms suggestive of an infection. 3. Will continue to wean oxygen as necessary as needed. 4. Physical therapy (PT)/occupational therapy (OT) consult. 5. I have spoken with Dr. sHieh as well as with Dr. Vela. At this time, his biggest impediment to discharge from the hospital is weakness and the need for physical therapy. 6. Appreciate Dr. Hsieh input. 7. Will transfer him to the family practice service, but will continue to follow with him. edited: 09/21/2019 1023 zh MTDD
[2019-09-20] MEDS: TAMSULOSIN 0.4 MG CAP PO SCH (20:40)
[2019-09-20] MEDS: ENOXAPARIN 100MG/1ML SYRINGE (J1650) SC SCH (20:41)
--- NOTE | 2019-09-20 23:42 | IPNPDOC ---
Subjective Date Seen The patient was seen on 09/20/19. Subjective Chief Complaint/HPI Mr. Willis is still tired, but is feeling a little better today. He has not needed to go back on the NIPPV and his O2 flow rate is down today. He is focusing on resting and asked his visitors to leave so he can sleep more. Perhaps this episode is primarily tough side effects of his chemo. Dr. Hsieh did mention that often dexamethasone is given as a pretreatment for his regimen, but he didn't get it for some reason. In the future, if he has another round of chemo, this sounds like a good idea, since he seems to have responded relatively well to the Solumedrol here (as well as just time). General: Reports: Fatigue; Denies: Chills, Night Sweats Pulmonary: Denies: Cough Cardiovascular: Denies: Chest Pain, Palpitations Genitourinary: Denies: Dysuria Psych: Reports: Mood Normal Objective Physical Examination General Exam: Positive: Alert, Cooperative, No Acute Distress (laying on the bed resting when I entered the room) Eye Exam: Positive: Conjunctiva & lids normal; Negative: Sclera icteric ENT Exam: Negative: Mucous membr. moist/pink (slighly dry) Neck Exam: Positive: Supple; Negative: JVD, Lymphadenopathy Chest Exam: Positive: Rhonchi (noted in his lung ervin bilaterally); Negative: Normal air movement (decreased movement of air noted at the L base) Heart Exam: Positive: Rate Normal, Normal S1, Normal S2; Negative: Murmurs Abdomen Exam: Positive: Normal bowel sounds, Soft; Negative: Tenderness Extremity Exam: Negative: Edema Psych Exam: Positive: Mental status NL, Oriented x 3 Assessment /Plan Problems (1) Acute respiratory acidosis Response to Treatment: Stable, Compensated Discussed With: Nurse, Wire Drawer, Patient, Family with Pt Consent Problem Specific Plan: Monitor Clinically, Repeat Tests Problem Text: His respiratory status seems to be stabilized. He continues to be monitored by Dr. Gandara. She will continue to consult, but has requested that we take primary responsibility for the patient. He can probably leave the ICU soon. 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 Betancourt. He has locally advanced clinical stage IV, T4N2M1 malignant mesothelioma of the plura. He is day five after cisplatin/pemetrexed/bevacizumab. Per Dr. Hsieh this is often the worst day for patients. He clearly has some respiratory and cardiac toxicity related to this combination. The question is whether he will recover well enough to be able to have his next round in 3-4 weeks. This question doesn't seem to be answered yet. (3) Chemotherapy-induced cardiomyopathy Status: Acute Discussed With: Wire Drawer, Patient, Family with Pt Consent Problem Specific Plan: Monitor Clinically Problem Text: I spoke with Dr. Richter about this patient. He feels that there is cardiotoxicity to the regimen, but there is nothing that he can do to improve this. It doesn't seem to be of coronary arterial origin. He will continue to monitor the patient with us, but may not be putting in daily notes. (4) Tachycardia Status: Chronic Problem Specific Plan: Monitor Clinically Problem Text: Per the patient his tachycardia has been present even before the chemotherapy. Dr. Richter is of the opinion that it is physiologic tachycardia related to hypoxemia and his mesothelioma. He does not suggest we do anything to slow the heart rate down since this will be eliminating his ability to compensate. His TSH was checked and is WNL. (5) Pulmonary embolism Status: Acute Problem Specific Plan: Monitor Clinically Problem Text: He was dx with a PE in 07/2019. He is on full tx doses of Lovenox. This certainly could contribute to his tachycardia. (6) Pleural effusion on left Status: Chronic Problem Specific Plan: Monitor Clinically Problem Text: This has been present since at least 2017. Dr. Gandara has considered draining it to see if it helps with his respiratory status, but since he is improving without the procedure we will defer that for now. Plan/VTE VTE Prophylaxis Ordered?: Yes (tx doses of Lovenox) Plan Activity: Advance (the primary thing he seems to need today is strengthening. He may be within a couple days of discharge with home P/T. Alternatively he may need ARU or SNF if he doesn't bounce back quickly.) Advance Directives: Other Advance Directive (I had a conversation with him about his advanced directives. He wishes to be FULL CODE. He does not want to be kept alive on life sustaining treatment if he does have to be coded. His (and HCP) knows his wishes and will help us if we need to understand what he would want.) VS, I&O, 24H, Fishbonoscar Vital Signs/I&O Vital Signs Date Time Temp Pulse Resp B/P (MAP) Pulse Ox O2 Delivery O2 Flow Rate FiO2 09/20/19 21:00 114 122/79 (93) 97 Nasal Cannula 4.0 09/20/19 20:35 98.1 20 09/19/19 09:01 50 I&O- Last 24 Hours up to 6 AM 09/20/19 06:00 Intake Total 1390.2 ml Output Total 1042 ml Balance 348.2 ml Laboratory Data 24H LABS Laboratory Tests 2 09/20/19 04:27: Lymphocytes # (Auto) , Nucleated Red Blood Cells % (auto) 0.0, Neutrophils 99H, Lymphocytes (Manual) 1L, Hypochromasia 2+, Anisocytosis 1+, Smudge Cells 1+, Platelet Estimate NORMAL, Clumped Platelets SMALL AMT, Anion Gap 6L, Glomerular Filtration Rate > 60.0, Calcium Level 8.8, Phosphorus Level 3.2, Magnesium Level 2.0, Total Bilirubin 0.3, Aspartate Amino Transf (AST/SGOT) 31, Alanine Aminotransferase (ALT/SGPT) 30, Alkaline Phosphatase 83, Lactate Dehydrogenase 205, Total Creatine Kinase 54, Total Protein 5.1L, Albumin 2.2L, Albumin/Globulin Ratio 0.76L, Triglycerides Level 118, Cholesterol Level 130 CBC/BMP Laboratory Tests 09/20/19 04:27 Microbiology Microbiology 09/18/19 Blood Culture - Preliminary, Resulted No Growth after 48 hours. All Specime... 09/18/19 Blood Culture - Preliminary, Resulted No Growth after 48 hours. All Specime... 09/18/19 Respiratory Virus Panel (PCR) ([id number]) - Final, Complete Leonel Vela MD Sep 20, 2019 23:42
[2019-09-21] VITALS (7 sets, daily range): BP systolic 120–138; BP diastolic 79–90
[2019-09-21 05:03] LABS: HEMATOCRIT 38.3 % (42.0-52.0); HEMOGLOBIN 11.1 g/dl (13.5-17.5); LYMPH % 1.5 % (24.0-44.0); MEAN CORPUSCULAR HEMOGLOBIN 24.1 pg (27.0-33.0); MEAN CORPUSCULAR VOLUME 83.1 fl (80.0-96.0); MONO % 0.1 % (0.0-5.0); NEUTROPHILS % 96.9 % (36.0-66.0); PLATELET COUNT, AUTOMATED 182 10^3/uL (150-450); RED BLOOD COUNT 4.61 10^6/uL (4.30-6.10); WHITE BLOOD COUNT 7.3 10^3/uL (4.0-10.0)
[2019-09-21 05:21] LABS: LYMPH # 0.1 10^3/uL (1.5-5.0)
[2019-09-21 05:32] LABS: ALBUMIN 2.2 GM/DL (3.2-5.2); ALT/SGPT 35 U/L (12-78); BILIRUBIN,TOTAL 0.5 MG/DL (0.2-1.0); BLOOD UREA NITROGEN 54 MG/DL (7-18); CALCIUM LEVEL 8.9 MG/DL (8.8-10.2); CARBON DIOXIDE LEVEL 39 MEQ/L (21-32); CHLORIDE LEVEL 100 MEQ/L (98-107); CHOLESTEROL LEVEL 142 MG/DL (< 200); CPK CREATINE PHOSPHOKINASE 132 U/L (39-308); CREATININE FOR GFR 0.75 MG/DL (0.70-1.30); GLOMERULAR FILTRATION RATE > 60.0 (>49); GLUCOSE, FASTING 111 MG/DL (70-100); LDH LACTATE DEHYDROGENASE 168 U/L (87-241); MAGNESIUM LEVEL 1.8 MG/DL (1.8-2.4); PHOSPHORUS LEVEL 3.9 MG/DL (2.5-4.9); POTASSIUM SERUM 4.4 MEQ/L (3.5-5.1); SODIUM LEVEL 144 MEQ/L (136-145); TOTAL PROTEIN 5.3 GM/DL (6.4-8.2); TRIGLYCERIDES LEVEL 162 MG/DL (<150)
[2019-09-21] MEDS: IPRATROPIUM 0.5MG/ALBUTEROL 2.5MG INH SOL UD 3ML (DUONEB)(J7620) NEB SCH ×4 (07:13→19:45)
--- NOTE | 2019-09-21 09:46 | IPNPDOC ---
Subjective Date Seen The patient was seen on 09/21/19. Subjective Chief Complaint/HPI Some discomfort with deep inspiration. No nausea. Speech brief, minimal. Constitutional: Denies: Chills ENT: Denies: Head Aches Pulmonary: Reports: Dyspnea, Pleuritic Chest Pain Cardiovascular: Denies: Palpitations Gastrointestinal: Denies: Nausea, Abdominal Pain Hematologic: Denies: Bruising Neurological: Denies: Numbness Objective Physical Examination General Exam: Positive: Alert, Cooperative, No Acute Distress (laying on the bed resting when I entered the room) Eye Exam: Positive: Conjunctiva & lids normal; Negative: Sclera icteric ENT Exam: Negative: Mucous membr. moist/pink (slighly dry) Neck Exam: Positive: Supple; Negative: JVD, Lymphadenopathy Chest Exam: Positive: Diminished (no breath sounds in left base. generally ); Negative: Normal air movement (decreased movement of air noted at the L base), Rhonchi, Wheezing Heart Exam: Positive: Rate Normal, Normal S1, Normal S2; Negative: Murmurs Abdomen Exam: Positive: Normal bowel sounds, Soft; Negative: Tenderness Extremity Exam: Negative: Edema Skin Exam: Positive: Nl turgor and temperature; Negative: Rash Neuro Exam: Positive: Other (generally weak, dyspneic with minimal movement.) Psych Exam: Positive: Mental status NL, Oriented x 3 Assessment /Plan Problems (1) Acute respiratory acidosis Response to Treatment: Stable, Compensated Discussed With: Nurse, [employer] Supervisor, Patient, Family with Pt Consent Problem Specific Plan: Monitor Clinically, Repeat Tests Problem Text: 09/21: to PCU today. Very easily fatigued. Still has poor aeration in left base. CXR shows interstitial changes in right lung ervin as well, maybe a little less prominent than on admission and maybe minimal aeration in left compared to admission. His respiratory status seems to be stabilized. He continues to be monitored by Dr. Gandara. She will continue to consult, but has requested that we take primary responsibility for the patient. He can probably leave the ICU soon. 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 Betancourt. He has locally advanced clinical stage IV, T4N2M1 malignant mesothelioma of the plura. He is day five after cisplatin/pemetrexed/bevacizumab. Per Dr. Hsieh this is often the worst day for patients. He clearly has some respiratory and cardiac toxicity related to this combination. The question is whether he will recover well enough to be able to have his next round in 3-4 weeks. This question doesn't seem to be answered yet. (3) Chemotherapy-induced cardiomyopathy Status: Acute Discussed With: [employer] Supervisor, Patient, Family with Pt Consent Problem Specific Plan: Monitor Clinically Problem Text: 09/21: tachycardia thought to be compensatory mechanism so no rate lowering agents on board. I spoke with Dr. Richter about this patient. He feels that there is cardiotoxicity to the regimen, but there is nothing that he can do to improve this. It doesn't seem to be of coronary arterial origin. He will continue to monitor the patient with us, but may not be putting in daily notes. (4) Tachycardia Status: Chronic Response to Treatment: Stable Problem Specific Plan: Monitor Clinically Problem Text: Per the patient his tachycardia has been present even before the chemotherapy. Dr. Richter is of the opinion that it is physiologic tachycardia related to hypoxemia and his mesothelioma. He does not suggest we do anything to slow the heart rate down since this will be eliminating his ability to compensate. His TSH was checked and is WNL. (5) Pulmonary embolism Status: Acute Problem Specific Plan: Monitor Clinically Problem Text: 09/21: since no invasive procedure is anticipated, will d/c Lovenox and resume Eliquis 5 bid. He was dx with a PE in 07/2019. He is on full tx doses of Lovenox. This certainly could contribute to his tachycardia. (6) Pleural effusion on left Status: Chronic Problem Specific Plan: Monitor Clinically Problem Text: This has been present since at least 2016. Dr. Gandara has considered draining it to see if it helps with his respiratory status, but since he is improving without the procedure we will defer that for now. Plan/VTE VTE Prophylaxis Ordered?: Yes (tx doses of Lovenox) Plan Activity: Advance (the primary thing he seems to need today is strengthening. He may be within a couple days of discharge with home P/T. Alternatively he may need ARU or SNF if he doesn't bounce back quickly.) Therapy: PT, OT Advance Directives: Other Advance Directive (I had a conversation with him about his advanced directives. He wishes to be FULL CODE. He does not want to be kept alive on life sustaining treatment if he does have to be coded. His (and HCP) knows his wishes and will help us if we need to understand what he would want.) VS, I&O, 24H, Fishbone Vital Signs/I&O Vital Signs Date Time Temp Pulse Resp B/P (MAP) Pulse Ox O2 Delivery O2 Flow Rate FiO2 09/21/19 07:29 98.7 116 22 123/81 (95) 97 High Flow Cannula 4.0 09/19/19 09:01 50 I&O- Last 24 Hours up to 6 AM 09/21/19 06:00 Intake Total 1280.2 ml Output Total 1925 ml Balance -644.8 ml Laboratory Data 24H LABS Laboratory Tests 2 09/21/19 04:41: Immature Granulocyte % (Auto) 1.5, Neutrophils (%) (Auto) 96.9H, Lymphocytes (%) (Auto) 1.5L, Monocytes (%) (Auto) 0.1, Eosinophils (%) (Auto) 0.0, Basophils (%) (Auto) 0.0, Neutrophils # (Auto) 7.0, Lymphocytes # (Auto) 0.1L, Monocytes # (Auto) 0.0, Eosinophils # (Auto) 0.0, Basophils # (Auto) 0.0, Nucleated Red Blood Cells % (auto) 0.0, Anion Gap 5L, Glomerular Filtration Rate > 60.0, Calcium Level 8.9, Phosphorus Level 3.9#, Magnesium Level 1.8, Total Bilirubin 0.5#, Aspartate Amino Transf (AST/SGOT) 42H, Alanine Aminotransferase (ALT/SGPT) 35, Alkaline Phosphatase 85, Lactate Dehydrogenase 168, Total Creatine Kinase 132#, Total Protein 5.3L, Albumin 2.2L, Albumin/Globulin Ratio 0.71L, Trigly cerides Level 162H, Cholesterol Level 142 CBC/BMP Laboratory Tests 09/21/19 04:41 Microbiology Microbiology 09/18/19 Blood Culture - Preliminary, Resulted No Growth after 72 hours. All specime... 09/18/19 Blood Culture - Preliminary, Resulted No Growth after 72 hours. All specime... 09/18/19 Respiratory Virus Panel (PCR) (KRZYSZTOF) - Final, Complete Gato Paez MD Sep 21, 2019 09:46
[2019-09-21] MEDS: CYANOCOBALAMIN 500 MCG TAB PO SCH (09:49)
[2019-09-21] MEDS: FOLIC ACID 1 MG TAB PO SCH (09:49)
[2019-09-21] MEDS: PANTOPRAZOLE 40MG TAB (PROTONIX) PO SCH (09:49)
--- NOTE | 2019-09-21 17:23 | IPN ---
DATE: 09/21/2019 NOTE: Mr. Willis continues to do well. He had no events overnight. He is working with physical therapy. He was out of bed and to the chair. He still has a cough but he feels he can handle it. His cough occurs predominantly after he receives a nebulization. No chest pain or pressure. No nausea or emesis. He feels tired after his activity today. OBJECTIVE: PHYSICAL EXAMINATION: Mr. Willis is lying in bed, in no acute distress. His voice continues to be stronger and he is more animated with conversations. VITAL SIGNS: Temperature 98.7 which is his maximum temperature (T-max), pulse 116, respiratory rate 22, blood pressure 123/81 with a mean arterial pressure (MAP) of 95. SPO2 97% on FIO2 of four liters. HEENT: Anicteric. Nares: Patent bilaterally. Oropharynx: Moist mucosa. NECK: Without jugular venous distention (JVD). LUNGS: Symmetric excursion, good air entry. No wheeze, rhonchi or significant crackle. He has absent breath sounds at the left base. CARDIOVASCULAR: Tachycardiac, regular rhythm, normal S1, S2. No murmur, rub, or gallop appreciated. ABDOMEN: Positive bowel sounds, soft, nondistended, nontender. No hepatosplenomegaly or masses appreciated. EXTREMITIES: Without clubbing, cyanosis, or edema. LABORATORY DATA: CBC from this morning showed a hemoglobin 11.1, hematocrit 38.3, platelet count 182,000, white blood cell count 7300 with a differential of 97% neutrophils and 2% lymphocytes. Chemistry showed a sodium 144, potassium 4.5, chloride 100, bicarbonate 39, anion gap 5, BUN 54, creatinine 0.8, glucose 111, calcium 8.9, phosphorus 3.9, magnesium 1.8, direct bilirubin 0.5, AST 14, ALT 35, alkaline phosphatase 85, LDH 168, CK 132, total protein 5.3, albumin 2.2. Yesterday's intake and output showed 1380 in and 1275 out making him positive 105.2. Thus far today 875 out. Weight 57.7 kg. IMPRESSION: 1. Acute and chronic hypercapnic hypoxemic respiratory failure, clinically improved. I suspect he is going to require a higher level of oxygen at baseline then he did at home. It could also be anticipated he will desaturate with ambulation and it will likely take 10-15 minutes to return to his normal level. 2. Chronic hypercapnia, thought possibly related to restrictive lung disease as well as increased interstitial infiltrates, felt lymphocytic spread of his mesothelioma. 3. Abnormal chest x-ray with increased interstitial markings. Concern remain for worsening lymphangitic spread with a possible pulmonary edema. 4. Mesothelioma, stage IV, status post first round of chemotherapy with cisplatin and pemetrexed. Next scheduled chemotherapy is in two weeks. 5. Chronic left pleural effusion with no significant change dating back to 2017. 6. Acute renal insufficiency, felt secondary to chemotherapy, resolved. 7. Elevated troponins felt secondary to demand ischemia. 8. Pulmonary hypertension, mild/moderate. 9. Deep vein thrombosis (DVT) prophylaxis, fully anticoagulated on Lovenox. RECOMMENDATIONS: 1. Continue Lovenox which is the preference of oncology for anticoagulation. 2. Continued to work with physical therapist/occupational therapy consultation. 3. From a pulmonary perspective, he can be discharged when he passes physical therapy.
[2019-09-21] MEDS: APIXABAN 5 MG TAB (ELIQUIS) PO SCH (20:44)
[2019-09-21] MEDS: TAMSULOSIN 0.4 MG CAP PO SCH (20:44)
[2019-09-22] VITALS: BP 119/75
[2019-09-22 04:00] VITALS: BP 114/76
[2019-09-22 05:47] LABS: HEMATOCRIT 39.8 % (42.0-52.0); HEMOGLOBIN 11.6 g/dl (13.5-17.5); MEAN CORPUSCULAR HEMOGLOBIN 24.2 pg (27.0-33.0); MEAN CORPUSCULAR HGB CONC 29.1 g/dl (32.0-36.5); MEAN CORPUSCULAR VOLUME 83.1 fl (80.0-96.0); PLATELET COUNT, AUTOMATED 137 10^3/uL (150-450); RED BLOOD COUNT 4.79 10^6/uL (4.30-6.10)
[2019-09-22 06:04] LABS: WHITE BLOOD COUNT 1.5 10^3/uL (4.0-10.0)
[2019-09-22 06:09] LABS: EOSINOPHILS 5 % (0-3); LYMPHOCYTES 18 % (16-44); NEUTROPHILS 77 % (28-66)
[2019-09-22 06:10] LABS: ANISOCYTOSIS 1+; HYPOCHROMASIA 2+; PLATELET ESTIMATE DECREASED (NORMAL)
[2019-09-22 06:17] LABS: ALBUMIN 2.1 GM/DL (3.2-5.2); ALT/SGPT 49 U/L (12-78); BILIRUBIN,TOTAL 0.6 MG/DL (0.2-1.0); BLOOD UREA NITROGEN 55 MG/DL (7-18); CALCIUM LEVEL 8.5 MG/DL (8.8-10.2); CARBON DIOXIDE LEVEL 40 MEQ/L (21-32); CHLORIDE LEVEL 99 MEQ/L (98-107); CHOLESTEROL LEVEL 149 MG/DL (< 200); CPK CREATINE PHOSPHOKINASE 215 U/L (39-308); CREATININE FOR GFR 0.69 MG/DL (0.70-1.30); GLOMERULAR FILTRATION RATE > 60.0 (>49); GLUCOSE, FASTING 96 MG/DL (70-100); LDH LACTATE DEHYDROGENASE 237 U/L (87-241); MAGNESIUM LEVEL 1.8 MG/DL (1.8-2.4); PHOSPHORUS LEVEL 3.4 MG/DL (2.5-4.9); POTASSIUM SERUM 4.7 MEQ/L (3.5-5.1); SODIUM LEVEL 142 MEQ/L (136-145); TOTAL PROTEIN 5.2 GM/DL (6.4-8.2); TRIGLYCERIDES LEVEL 178 MG/DL (<150)
[2019-09-22 08:00] VITALS: BP 107/62
[2019-09-22] MEDS: IPRATROPIUM 0.5MG/ALBUTEROL 2.5MG INH SOL UD 3ML (DUONEB)(J7620) NEB SCH ×4 (08:03→19:24)
[2019-09-22] MEDS: PANTOPRAZOLE 40MG TAB (PROTONIX) PO SCH (09:07)
[2019-09-22] MEDS: APIXABAN 5 MG TAB (ELIQUIS) PO SCH ×2 (09:07→20:12)
[2019-09-22] MEDS: CYANOCOBALAMIN 500 MCG TAB PO SCH (09:07)
[2019-09-22] MEDS: FOLIC ACID 1 MG TAB PO SCH (09:07)
--- NOTE | 2019-09-22 10:23 | IPNPDOC ---
Subjective Date Seen The patient was seen on 09/22/19. Subjective Chief Complaint/HPI feels about the same as yesterday, but looks more comfortable. Constitutional: Denies: Chills, Fever ENT: Denies: Head Aches Cardiovascular: Denies: Chest Pain Gastrointestinal: Denies: Nausea, Abdominal Pain Hematologic: Denies: Bruising Musculoskeletal: Denies: Neck Pain Neurological: Reports: Weakness Psych: Reports: Mood Normal Objective Physical Examination General Exam: Positive: Alert, Cooperative, No Acute Distress (laying on the bed resting when I entered the room) Eye Exam: Positive: Conjunctiva & lids normal; Negative: Sclera icteric ENT Exam: Negative: Mucous membr. moist/pink (slighly dry) Neck Exam: Positive: Supple; Negative: JVD, Lymphadenopathy Chest Exam: Positive: Diminished (no breath sounds in left base. generally ); Negative: Normal air movement (decreased movement of air noted at the L base), Rhonchi, Wheezing Heart Exam: Positive: Rate Normal, Normal S1, Normal S2; Negative: Murmurs Abdomen Exam: Positive: Normal bowel sounds, Soft; Negative: Tenderness Extremity Exam: Negative: Edema Skin Exam: Positive: Nl turgor and temperature; Negative: Rash Neuro Exam: Positive: Other (generally weak, dyspneic with minimal movement.) Psych Exam: Positive: Mental status NL, Oriented x 3 Assessment /Plan Problems (1) Acute respiratory acidosis Response to Treatment: Stable, Compensated Discussed With: Nurse, [employer] Manager, Patient, Family with Pt Consent Problem Specific Plan: Monitor Clinically, Repeat Tests Problem Text: 09/22: still in ICU due to bed availability. 09/21: to PCU today. Very easily fatigued. Still has poor aeration in left base. CXR shows interstitial changes in right lung ervin as well, maybe a little less prominent than on admission and maybe minimal aeration in left compared to admission. His respiratory status seems to be stabilized. He continues to be monitored by Dr. Gandara. She will continue to consult, but has requested that we take primary responsibility for the patient. He can probably leave the ICU soon. (2) Mesothelioma Status: Acute Response to Treatment: Progressing Discussed With: Nurse, [employer] Manager, Patient, Family with Pt Consent Problem Specific Plan: Monitor Clinically Problem Text: 09/22: WBC down, Dr. Betancourt has recommended single dose of neupogen. 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 Betancourt. He has locally advanced clinical stage IV, T4N2M1 malignant mesothelioma of the plura. He is day five after cisplatin/pemetrexed/bevacizumab. Per Dr. Hsieh this is often the worst day for patients. He clearly has some respiratory and cardiac toxicity related to this combination. The question is whether he will recover well enough to be able to have his next round in 3-4 weeks. This question doesn 't seem to be answered yet. (3) Chemotherapy-induced cardiomyopathy Status: Acute Response to Treatment: Stable Discussed With: [employer] Manager, Patient, Family with Pt Consent Problem Specific Plan: Monitor Clinically Problem Text: 09/21: tachycardia thought to be compensatory mechanism so no rate lowering agents on board. I spoke with Dr. Richter about this patient. He feels that there is cardiotoxicity to the regimen, but there is nothing that he can do to improve this. It doesn't seem to be of coronary arterial origin. He will continue to monitor the patient with us, but may not be putting in daily notes. (4) Tachycardia Status: Chronic Response to Treatment: Stable Problem Specific Plan: Monitor Clinically Problem Text: Per the patient his tachycardia has been present even before the chemotherapy. Dr. Richter is of the opinion that it is physiologic tachycardia related to hypoxemia and his mesothelioma. He does not suggest we do anything to slow the heart rate down since this will be eliminating his ability to compensate. His TSH was checked and is WNL. (5) Pulmonary embolism Status: Acute Problem Specific Plan: Monitor Clinically Problem Text: 09/21: since no invasive procedure is anticipated, will d/c Lovenox and resume Eliquis 5 bid. He was dx with a PE in 07/2019. He is on full tx doses of Lovenox. This certainly could contribute to his tachycardia. (6) Pleural effusion on left Status: Chronic Problem Specific Plan: Monitor Clinically Problem Text: 09/22: will repeat cXR in am. This has been present since at least 2016. Dr. Gandara has considered draining it to see if it helps with his respiratory status, but since he is improving without the procedure we will defer that for now. (7) Chemotherapy induced neutropenia Status: Acute Problem Specific Plan: Consult Specialist Problem Text: WBC 1500, ANC about 1100. Will need Granulocyte stimulating factor. Dr. Betancourt contacted. (8) Diarrhea Status: Acute Discussed With: Nurse Problem Text: check GI panel and Hemoccult. Plan/VTE VTE Prophylaxis Ordered?: Yes (tx doses of Lovenox) Plan Activity: Advance (the primary thing he seems to need today is strengthening. He may be within a couple days of discharge with home P/T. Alternatively he may need ARU or SNF if he doesn't bounce back quickly.) Therapy: PT, OT Advance Directives: Other Advance Directive (I had a conversation with him about his advanced directives. He wishes to be FULL CODE. He does not want to be kept alive on life sustaining treatment if he does have to be coded. His (and HCP) knows his wishes and will help us if we need to understand what he would want.) Overall, his performance status is poor due to underlying lung disease. VS, I&O, 24H, Fishbone Vital Signs/I&O Vital Signs Date Time Temp Pulse Resp B/P (MAP) Pulse Ox O2 Delivery O2 Flow Rate FiO2 09/22/19 08:03 115 16 09/22/19 08:00 5.0 09/22/19 08:00 98.1 107/62 (77) 93 High Flow Cannula 09/19/19 09:01 50 I&O- Last 24 Hours up to 6 AM 09/22/19 06:00 Intake Total 1380 ml Output Total 1250 ml Balance 130 ml Laboratory Data 24H LABS Laboratory Tests 2 09/22/19 05:19: Immature Granulocyte % (Auto) , Neutrophils # (Auto) , Nucleated Red Blood Cells % (auto) 0.0, Neutrophils 77H, Lymphocytes (Manual) 18, Eosinophils (Manual) 5H, Hypochromasia 2+, Anisocytosis 1+, Platelet Estimate DECREASED, Anion Gap 3L, Glomerular Filtration Rate > 60.0, Calcium Level 8.5L, Phosphorus Level 3.4, Magnesium Level 1.8, Total Bilirubin 0.6, Aspartate Amino Transf (AST/SGOT) 50H, Alanine Aminotransferase (ALT/SGPT) 49, Alkaline Phosphatase 94, Lactate Dehyd rogenase 237, Total Creatine Kinase 215, Total Protein 5.2L, Albumin 2.1L, Albumin/Globulin Ratio 0.68L, Triglycerides Level 178H, Cholesterol Level 149 CBC/BMP Laboratory Tests 09/22/19 05:19 Microbiology Microbiology 09/18/19 Blood Culture - Preliminary, Resulted No Growth after 72 hours. All specime... 09/18/19 Blood Culture - Preliminary, Resulted No Growth after 72 hours. All specime... 09/18/19 Respiratory Virus Panel (PCR) (KRZYSZTOF) - Final, Complete Gato Paez MD Sep 22, 2019 10:23
[2019-09-22] MEDS ORDERED: FILGRASTIM 300 MCG/0.5 ML SYRINGE (J1442 PER 1MCG) SC ONE (11:00)
--- NOTE | 2019-09-22 11:31 | IPN ---
DATE: 09/22/2019 Mr. Willis is somewhat better today. No significant cough. He has been out of bed to the chair and also to the toilet. He did have two stools this morning. His biggest complaint is that he is not sleeping well. No other concerns expressed. OBJECTIVE/PHYSICAL EXAMINATION: General: Mr. Willis is lying in bed no acute distress. He can complete full sentences. No cough on evaluation. Vital Signs: Temperature 98.1 which is his T-max. Respiratory rate 16-24. Pulse 110s. Blood pressure 107/62 with a MAP of 77. SPO2 93% with FIO2 of 5 liters. HEENT: Anicteric, nares - patent bilaterally. Oropharynx moist mucosa. Neck: Supple, without jugular venous distention (JVD), thyromegaly or masses. Trachea is midline. Lymph: Left supraclavicular and right cervical lymph nodes. Lungs: Symmetric excursion, good air entry. No wheeze, rhonchi or crackle on tidal excursion. Normal I:E. No accessory muscle usage or retractions. Cardiovascular: Tachycardiac, regular rhythm, normal S1 and S2, no murmur or gallop appreciated. Abdomen: Positive bowel sounds, soft, nondistended, nontender. No hepatosplenomegaly or masses appreciated. Extremities: Warm and well-perfused, without clubbing, cyanosis or significant edema. Palpable pedal pulses bilaterally. LABORATORY DATA: CBC from this morning showed a hemoglobin of 11.6, hematocrit 39.8, platelet count 137,000, and white blood cell count 1500 with a differential of 77% neutrophils, 18% lymphocytes and 5% eosinophils. This gives an ANC of around 1100. Chemistry shows sodium 142, potassium 4.7, chloride 99, bicarbonate 40, anion gap 3, BUN 55, creatinine 0.7, glucose 96, calcium 8.5, phosphorus 3.4, magnesium 1.8, bilirubin 0.6, AST 50, ALT 49, alkaline phosphatase 94, LDH 237, CK 215, total protein 5.2, albumin 2.1. IMPRESSION: 1. Acute and chronic hypoxemic respiratory failure. Oxygen is appropriately placed. 2. Chronic hypercapnia, felt likely secondary to restrictive lung disease as well as increased interstitial infiltrates. 3. Abnormal chest x-ray with increased interstitial infiltrates. [place] most likely secondary to worsening lymphangitic spread with possible pulmonary edema. 4. Mesothelioma, stage IV, status post first round of chemotherapy with cisplatin and pemetrexed. 5. Scheduled chemotherapy is in about 2 weeks. 6. Leukopenia, secondary to chemotherapy. 7. Chronic left pleural effusion with no significant change dating back to 2017. 8. Deep vein thrombosis (DVT) prophylaxis, fully anticoagulated, Lovenox. RECOMMENDATIONS: 1. Agree with a two-view chest x-ray tomorrow. 2. We have contacted Dr. Betancourt who recommended giving one dose of Neupogen. He will see the patient tonight. 3. In regard to his sleeping difficulties, I did recommend that he start turning the lights on during the daytime to reorient day and night. He has kept his lights off and has been essentially in the dark since admission.
[2019-09-22 12:00] VITALS: BP 123/86
[2019-09-22] MEDS: SERTRALINE HCL 25 MG TABLET PO SCH (12:36)
[2019-09-22 16:00] VITALS: BP 128/70
--- NOTE | 2019-09-22 18:11 | IPN ---
DATE: 09/22/2019 IDENTIFICATION AND CHIEF COMPLAINT: Jethro Ji is an unfortunate 63-year-old gentleman with malignant mesothelioma, locally advanced, admitted via emergency department on 09/18/2019 with respiratory failure. The patient is seen in followup. HISTORY OF PRESENT ILLNESS: Jethro Ji is a 63-year-old gentleman whose history of present illness dates to November 2017 when he first noted gradual onset of exertional dyspnea as well as discomfort in the region of the left scapula. This progressively worsened over time, and he ultimately underwent spiral CT scan on 07/17/2019, which documented a filling defect in the right lower lobe subsegmental pulmonary arterial tree, consistent with pulmonary embolus. Imaging also showed pulmonary parenchymal disease with a diffuse alveolar pattern of opacification, a moderate-sized left pleural effusion, and thickening of the visceral and parietal pleura. He was further noted to have mediastinal lymphadenopathy. He underwent biopsy of a left cervical lymph node on 07/21/2019, which documented mesothelioma metastatic to the cervical lymph node. Mr. Ji began systemic chemotherapy using cisplatin and pemetrexed, administered on September 15 and 09/16/2019. Antiemetics included olanzapine at that time. The patient was noted to be somnolent, and on 09/18/2019, the patient's noted that he was desaturating below 90%. He was therefore brought to the emergency department and admitted to the intensive care unit after lactic acidosis was noted with a serum lactate of 6.1. The patient has been managed in intensive care unit and was placed on bilevel positive airway pressure (BiPAP) along with administration of corticosteroids and bronchodilators. Over the last 4 days, the patient has improved significantly, and at present he is awake, alert, and comfortable, although exhausted with exertional dyspnea; however, he is now on oxygen by nasal cannula without conversational dyspnea. ALLERGIES: The patient has no known medication allergies. CURRENT MEDICATIONS: - sertraline 25 mg by mouth daily - apixaban 5 mg by mouth twice a day - folic acid 1 mg by mouth daily - vitamin B12 at 1 mg by mouth daily - pantoprazole 40 mg by mouth daily - tamsulosin 0.4 mg by mouth daily - Zofran 8 mg by mouth three times a day as needed - DuoNeb inhalation therapy as needed - Proventil nebulizer 2.5 mg every 4 hours as needed PAST MEDICAL HISTORY, SOCIAL HISTORY, AND FAMILY HISTORY: The patient has past medical history, social history and family history are as documented in medical oncology consultation notes of 09/18/2019. REVIEW OF SYSTEMS: NEUROLOGIC: The patient had been somnolent on presentation, and this has resolved. No headache. No focal neurologic deficits. No history of seizure. RESPIRATORY: The patient has mesothelioma with recurrent left pleural effusions, status post thoracentesis on several occasions. He continues to have dyspnea, but this has markedly improved. He remains on supplemental oxygen. Intermittent cough, which is nonproductive. No hemoptysis. CARDIAC: No exertional chest pressure. No orthopnea. No leg edema. GASTROINTESTINAL: The patient reports anorexia but no recent nausea, vomiting, abdominal pain, or diarrhea. CONSTITUTIONAL. The patient has profound fatigue and weight loss of more than 20 pounds from baseline over the past year. Previously noted night sweats have not recurred. The remainder of review of systems was obtained was negative. PHYSICAL EXAMINATION: Mr. Ji is a thin gentleman with bitemporal wasting, awake, alert, and fully oriented, friendly and cooperative in no acute distress but ill in appearance. Temperature 97.3, pulse 135, respirations 30, blood pressure 128/70, oxygen saturation 93% on 5 liters oxygen by nasal cannula. HEENT: Bitemporal wasting. Atraumatic. Pupils round and reactive. Extraocular muscles intact. Sclerae anicteric. Oropharynx without lesions. NECK: Supple without thyromegaly. LUNGS: Decreased breath sounds at the left base. Bilateral breath sounds audible elsewhere without wheezing or rhonchi. CARDIAC: Tachycardia noted. Point of maximal impulse nondisplaced. S1, S2 without gallop, rub, or murmur. ABDOMEN: Active bowel sounds, soft, nontender without appreciable organomegaly. No guarding or rebound elicited. RECTAL: Examination deferred. EXTREMITIES: Without cyanosis or edema, but there is mild clubbing. NEUROLOGIC: Mental status intact. Cranial nerves intact. Motor and sensory grossly intact. LABORATORY DATA: Laboratory studies dated 09/22/2019 include white blood count 1500 per microliter, hemoglobin 11.6 grams per deciliter, hematocrit 39.8%, platelet count 137,000, absolute neutrophil count is greater than 1000 per microliter. BUN 55, creatinine 0.69 mg per decilter. Total bilirubin 1.8 mg per deciliter. Albumin depressed at 2.1 grams per deciliter. IMPRESSION: 1. Mesothelioma. The patient has locally advanced mesothelioma with a poor prognosis. Nonetheless, he has embarked upon systemic chemotherapy using cisplatin and pemetrexed. He appears to have started to kiran his white blood count after the first cycle of chemotherapy, and administration of granulocyte colony-stimulating factor is reasonable under these circumstances. He is at relatively low risk for neutropenia to a degree that would be associated with significant risk of infection. 2. Hypoxia. The patient has hypoxia due to pulmonary disease, both pleural effusion and parenchymal lung disease. There is the possibility of lymphangitic carcinomatosis, which could potentially respond favorably to antineoplastic therapy. Pulmonary function should improve in that case. However, it is uncertain whether or not he will respond favorably to therapy. Typically, two cycles of therapy are administered at a minimum before formally assessing response. The patient will be due for cycle #2 of chemotherapy in late September 2019. Typically, imaging to assess response would be performed 3 weeks after the second cycle of treatment. If there is evidence of progression of disease at that time, then it may be concluded that the patient's prognosis is quite grim and the value additional antineoplastic therapy would be called into question. 3. Malnutrition. The patient has a depressed serum albumin and has had poor oral intake. The intensive care unit nursing staff suggested consideration of total parenteral nutrition to tide the patient over until his appetite improves. This appears entirely reasonable, if this can be arranged logistically. In addition, the patient may benefit from use of androgenic steroids to stimulate appetite and rebuild muscle mass. Androgenic steroids carry a risk of venous thromboembolic disease, but the patient is fully anticoagulated, and therefore that risk is minimal. RECOMMENDATIONS: It is recommended that one dose of granulocyte colony-stimulating factor 300 mcg be administered today, and this has been done. It is suggested that social work and home care be contacted to help determine if home total parenteral nutrition can be arranged; if so, then a peripherally inserted central venous catheter would be placed to facilitate this, temporarily. Total parenteral nutrition (TPN) would then be continued until the patient had adequate calorie intake by mouth. This would be expected to last no longer than 2-3 weeks, at most. Consideration can also, as noted above, be given to use of androgenic steroids, such as Deca-Durabolin, in order to stimulate appetite and muscle mass. Additional management recommendations will be forthcoming based on the patient's clinical status as it evolves. There is the possibility that olanzapine contributed to the patient's somnolence and therefore to his hypoxia, and olanzapine will therefore be discontinued as a premedication for chemotherapy, if the patient continues chemotherapy going forward. These recommendations were discussed with the ICU nursing staff at the time of consult, and the patient's and sister are aware of these recommendations as well.
[2019-09-22 20:00] VITALS: BP 113/77
[2019-09-22] MEDS: TAMSULOSIN 0.4 MG CAP PO SCH (20:12)
[2019-09-23] VITALS (7 sets, daily range): BP systolic 110–129; BP diastolic 72–81
[2019-09-23 01:23] LABS: CLOSTRIDIUM DIFFICILE PCR NEGATIVE (NEGATIVE)
[2019-09-23 05:23] LABS: HEMATOCRIT 38.7 % (42.0-52.0); HEMOGLOBIN 11.4 g/dl (13.5-17.5); MEAN CORPUSCULAR HGB CONC 29.5 g/dl (32.0-36.5); MEAN CORPUSCULAR VOLUME 81.5 fl (80.0-96.0); RED BLOOD COUNT 4.75 10^6/uL (4.30-6.10); WHITE BLOOD COUNT 2.9 10^3/uL (4.0-10.0)
[2019-09-23 05:49] LABS: PLATELET COUNT, AUTOMATED 82 10^3/uL (150-450)
[2019-09-23 05:50] LABS: ALBUMIN 2.1 GM/DL (3.2-5.2); ALT/SGPT 46 U/L (12-78); BLOOD UREA NITROGEN 54 MG/DL (7-18); CALCIUM LEVEL 8.8 MG/DL (8.8-10.2); CARBON DIOXIDE LEVEL 42 MEQ/L (21-32); CHLORIDE LEVEL 96 MEQ/L (98-107); CHOLESTEROL LEVEL 135 MG/DL (< 200); CPK CREATINE PHOSPHOKINASE 49 U/L (39-308); GLOMERULAR FILTRATION RATE > 60.0 (>49); GLUCOSE, FASTING 98 MG/DL (70-100); LDH LACTATE DEHYDROGENASE 198 U/L (87-241); MAGNESIUM LEVEL 1.7 MG/DL (1.8-2.4); PHOSPHORUS LEVEL 3.4 MG/DL (2.5-4.9); POTASSIUM SERUM 4.1 MEQ/L (3.5-5.1); SODIUM LEVEL 141 MEQ/L (136-145); TRIGLYCERIDES LEVEL 159 MG/DL (<150)
[2019-09-23 05:57] LABS: EOSINOPHILS 1 % (0-3); LYMPHOCYTES 13 % (16-44); MONOCYTES 1 % (0-5); NEUTROPHILS 85 % (28-66); PLATELET ESTIMATE DECREASED (NORMAL)
[2019-09-23 05:58] LABS: ANISOCYTOSIS 1+
[2019-09-23] MEDS: IPRATROPIUM 0.5MG/ALBUTEROL 2.5MG INH SOL UD 3ML (DUONEB)(J7620) NEB SCH ×4 (08:00→20:09)
[2019-09-23] MEDS: CYANOCOBALAMIN 500 MCG TAB PO SCH (08:37)
[2019-09-23] MEDS: FOLIC ACID 1 MG TAB PO SCH (08:37)
[2019-09-23] MEDS: APIXABAN 5 MG TAB (ELIQUIS) PO SCH ×2 (08:37→21:16)
[2019-09-23] MEDS: SERTRALINE HCL 25 MG TABLET PO SCH (08:37)
[2019-09-23] MEDS: PANTOPRAZOLE 40MG TAB (PROTONIX) PO SCH (08:37)
--- NOTE | 2019-09-23 09:07 | REP ---
Portable chest x-ray: Single view. History: These is the [place] month. Comparison chest x-ray: September 20, 2019. Findings: There is a loculated hydropneumothorax at the left base laterally unchanged from prior study. Hazy increased density seen behind the heart indicating pleural fluid and/or pleural thickening. This is unchanged. There is linear fibrosis versus atelectasis adjacent to this process in the left base. There is diffuse interstitial lung disease is moderate to severe. This is unchanged from recent prior chest x-ray and from chest CT study done 08/18/2019. No new focal infiltrate. Electronically Signed by Anthony Barron MD 09/23/2019 08:58 A
--- NOTE | 2019-09-23 10:33 | IPNPDOC ---
Subjective Date Seen The patient was seen on 09/23/19. Subjective Chief Complaint/HPI tired, but breathing is no worse. appetite remains poor. Constitutional: Denies: Chills Pulmonary: Reports: Pleuritic Chest Pain (left side, unchanged.) Gastrointestinal: Denies: Diarrhea (only one stool yesterday. likely was transient chemotherapy effect) Genitourinary: Denies: Dysuria Hematologic: Denies: Bruising Endocrine: Denies: Polydipsia Neurological: Reports: Weakness (globally weak.) Psych: Reports: Depression (low mood) Objective Physical Examination General Exam: Positive: Alert, Cooperative, No Acute Distress (laying on the bed resting when I entered the room) Eye Exam: Positive: Conjunctiva & lids normal; Negative: Sclera icteric ENT Exam: Negative: Mucous membr. moist/pink (slighly dry) Neck Exam: Positive: Supple; Negative: JVD, Lymphadenopathy Chest Exam: Positive: Diminished (no breath sounds in left base. generally ); Negative: Normal air movement (decreased movement of air noted at the L base, rales heard right chest where the air movement is better and uper chest bilaterally.), Rhonchi, Wheezing Heart Exam: Positive: Tachycardic (HR typically around 100 but speeds to 120's with activity.), Normal S1, Normal S2; Negative: Murmurs Abdomen Exam: Positive: Normal bowel sounds, Soft; Negative: Tenderness Extremity Exam: Negative: Edema Skin Exam: Positive: Nl turgor and temperature; Negative: Rash Neuro Exam: Positive: Other (generally weak, dyspneic with minimal movement.) Psych Exam: Positive: Mental status NL, Oriented x 3 Assessment /Plan Problems (1) Acute respiratory acidosis Response to Treatment: Stable, Compensated Discussed With: Nurse, License Inspector, Patient, Family with Pt Consent Problem Specific Plan: Monitor Clinically, Repeat Tests Problem Text: 09/23: CXR stable. 09/22: still in ICU due to bed availability. 09/21: to PCU today. Very easily fatigued. Still has poor aeration in left base. CXR shows interstitial changes in right lung ervin as well, maybe a little less prominent than on admission and maybe minimal aeration in left compared to admission. His respiratory status seems to be stabilized. He continues to be monitored by Dr. Gandara. She will continue to consult, but has requested that we take primary responsibility for the patient. He can probably leave the ICU soon. (2) Mesothelioma Status: Acute Response to Treatment: Progressing Discussed With: Nurse, License Inspector, Patient, Family with Pt Consent Problem Specific Plan: Monitor Clinically Problem Text: 09/23: WBC improved. platelets down today. Not eating, albumin low so he is malnourished. Dr. Betancourt has recommended TPN until he can resume po intake. Should have PICC today then can start TPN. Hopefully this will be a temporary measure so Tube feeding not recommended at this point. 09/22: WBC down, Dr. Betancourt has recommended single dose of neupogen. Dr. Hsieh is supervisor production for oncology today; his primary oncologist is Dr. Betancourt. He has locally advanced clinical stage IV, [id number] malignant mesothelioma of the plura. He is day five after cisplatin/pemetrexed/bevacizumab. Per Dr. Hsieh this is often the worst day for patients. He clearly has some respiratory and cardiac toxicity related to this combination. The question is whether he will recover well enough to be able to have his next round in 3-4 weeks. This question doesn't seem to be answered yet. (3) Chemotherapy-induced cardiomyopathy Status: Acute Response to Treatment: Stable Discussed With: License Inspector, Patient, Family with Pt Consent Problem Specific Plan: Monitor Clinically Problem Text: 09/21: tachycardia thought to be compensatory mechanism so no rate lowering agents on board. I spoke with Dr. Richter about this patient. He feels that there is cardiotoxicity to the regimen, but there is nothing that he can do to improve this. It doesn't seem to be of coronary arterial origin. He will continue to monitor the patient with us, but may not be putting in daily notes. (4) Tachycardia Status: Chronic Response to Treatment: Stable Problem Specific Plan: Monitor Clinically Problem Text: Per the patient his tachycardia has been present even before the chemotherapy. Dr. Richter is of the opinion that it is physiologic tachycardia related to hypoxemia and his mesothelioma. He does not suggest we do anything to slow the heart rate down since this will be eliminating his ability to compensate. His TSH was checked and is WNL. (5) Pulmonary embolism Status: Acute Response to Treatment: Stable Problem Specific Plan: Monitor Clinically Problem Text: 09/21: since no invasive procedure is anticipated, will d/c Lovenox and resume Eliquis 5 bid. He was dx with a PE in 07/2019. He is on full tx doses of Lovenox. This certainly could contribute to his tachycardia. (6) Pleural effusion on left Status: Chronic Response to Treatment: Stable Problem Specific Plan: Monitor Clinically Problem Text: 09/22: will repeat cXR in am. This has been present since at least 2016. Dr. Gandara has considered draining it to see if it helps with his respiratory status, but since he is improving without the procedure we will defer that for now. (7) Chemotherapy induced neutropenia Status: Acute Response to Treatment: Improving Problem Specific Plan: Consult Specialist Problem Text: WBC 1500, ANC about 1100. Will need Granulocyte stimulating factor. Dr. Betancourt contacted. (8) Diarrhea Status: Resolved Discussed With: Nurse Problem Text: check GI panel and Hemoccult. Plan/VTE VTE Prophylaxis Ordered?: Yes (tx doses of Lovenox) Plan Activity: Advance (the primary thing he seems to need today is strengthening. He may be within a couple days of discharge with home P/T. Alternatively he may need ARU or SNF if he doesn't bounce back quickly.) Therapy: PT, OT Advance Directives: DNR, Other Advance Directive (I had a conversation with him about his advanced directives. He wishes to be FULL CODE. He does not want to be kept alive on life sustaining treatment if he does have to be coded. His (and HCP) knows his wishes and will help us if we need to understand what he would want.) VS, I&O, 24H, Fishbone Vital Signs/I&O Vital Signs Date Time Temp Pulse Resp B/P (MAP) Pulse Ox O2 Delivery O2 Flow Rate FiO2 09/23/19 08:24 120 24 91 Nasal Cannula 4.0 09/23/19 07:58 113/72 (86) 09/23/19 04:00 97.6 09/19/19 09:01 50 I&O- Last 24 Hours up to 6 AM 09/23/19 06:00 Intake Total 590 ml Output Total 1375 ml Balance -785 ml Laboratory Data 24H LABS Laboratory Tests 2 09/22/19 23:53: Clostridium difficile [id number] PRESUMPTIVE NEGATIVE, Clostridium difficile Toxin (PCR) NEGATIVE 09/23/19 04:52: Immature Granulocyte % (Auto) , Lymphocytes # (Auto) , Nucleated Red Blood Cells % (auto) 0.0, Neutrophils 85H, Lymphocytes (Manual) 13L, Monocytes (Manual) 1, Eosinophils (Manual) 1, Anisocytosis 1+, Platelet Estimate DECREASED, Immature Platelet Fraction 2.5, Anion Gap 3L, Glomerular Filtration Rate > 60.0, Calcium Level 8.8, Phosphorus Level 3.4, Magnesium Level 1.7L, Total Bilirubin 1.0#, Aspartate Amino Transf (AST/SGOT) 47H, Alanine Aminotransferase (ALT/SGPT) 46, Alkaline Phosphatase 94, Lactate Dehydrogenase 198, Total Creatine Kinase 49#, Total Protein 5.0L, Albumin 2.1L, Albumin/Globulin Ratio 0.72L, Triglycerides Level 159H, Cholesterol Level 135 CBC/BMP Laboratory Tests 09/23/19 04:52 Microbiology Microbiology 09/22/19 Stool Occult Blood ([facility]TOF) - Final, Complete 09/18/19 Blood Culture - Final, Complete NO GROWTH AFTER 5 DAYS 09/18/19 Blood Culture - Final, Complete NO GROWTH AFTER 5 DAYS 09/18/19 Respiratory Virus Panel (PCR) ([facility]ZYSZTOF) - Final, Complete Gato Paez MD Sep 23, 2019 10:33
[2019-09-23] MEDS ORDERED: SODIUM CHLORIDE 0.9% INJ 10 ML SYR IV PRN (16:00)
[2019-09-23] MEDS: SODIUM CHLORIDE 0.9% INJ 10 ML SYR IV SCH (17:15)
[2019-09-23] MEDS ORDERED: AMINO AC/ELECTROLYTE/DEX/CALC 1,000 ML IV SCH (18:00)
[2019-09-23] MEDS ORDERED: FAT EMULSION IV 20% 500 ML IV SCH (18:00)
[2019-09-23] MEDS: HumaLOG INSULIN (NovoLOG) PER UNIT SC SCH (18:00)
--- NOTE | 2019-09-23 18:22 | REP ---
Procedure: PICC line insertion with Celestine The procedure was performed under the direct supervision of Dr. Barron. The risks and benefits of the procedure were explained to the patient and informed consent was obtained. The right basilic vein was localized using ultrasound guidance. The skin was prepped and draped in a sterile fashion. 1% lidocaine was used as a local anesthetic. Using ultrasound guidance the basilic vein was cannulated and a 0.018 guidewire was inserted and advanced to the SVC using fluoroscopic guidance. The needle was removed and a 5.5 [place]uran dilator and peel-away sheath was inserted over the guide wire. A 5.5 [place] dual lumen catheter was cut to length of 43 cm. The dilator was removed and the catheter was inserted over the guide wire with the tip ending in the SVC. The peel-away sheath was removed and the catheter was flushed with heparinized saline as per Hospital protocol. The catheter was affixed to the skin and a sterile dressing was applied. The patient tolerated the procedure well and there were no immediate complications. 0.2 minutes of fluoro time was utilized for this procedure. Electronically Signed by DHAVAL Israel 09/23/2019 04:12 P Electronically Signed by Anthony Barron MD 09/23/2019 06:13 P
[2019-09-23] MEDS: TAMSULOSIN 0.4 MG CAP PO SCH (21:16)
[2019-09-24] MEDS: HumaLOG INSULIN (NovoLOG) PER UNIT SC SCH ×4 (00:11→17:58)
[2019-09-24] MEDS: SODIUM CHLORIDE 0.9% INJ 10 ML SYR IV SCH ×2 (05:44→17:43)
[2019-09-24 06:00] VITALS: BP 132/78
[2019-09-24 06:22] LABS: HEMATOCRIT 32.8 % (42.0-52.0); HEMOGLOBIN 10.2 g/dl (13.5-17.5); MEAN CORPUSCULAR HEMOGLOBIN 24.8 pg (27.0-33.0); MEAN CORPUSCULAR HGB CONC 31.1 g/dl (32.0-36.5); MEAN CORPUSCULAR VOLUME 79.8 fl (80.0-96.0); RED BLOOD COUNT 4.11 10^6/uL (4.30-6.10); WHITE BLOOD COUNT 4.6 10^3/uL (4.0-10.0)
[2019-09-24 06:28] LABS: PLATELET COUNT, AUTOMATED 47 10^3/uL (150-450)
[2019-09-24 06:55] LABS: ALT/SGPT 40 U/L (12-78); ANISOCYTOSIS 1+; BILIRUBIN,TOTAL 0.7 MG/DL (0.2-1.0); BLOOD UREA NITROGEN 51 MG/DL (7-18); CALCIUM LEVEL 8.9 MG/DL (8.8-10.2); CARBON DIOXIDE LEVEL 40 MEQ/L (21-32); CHLORIDE LEVEL 98 MEQ/L (98-107); CHOLESTEROL LEVEL 130 MG/DL (< 200); CPK CREATINE PHOSPHOKINASE 31 U/L (39-308); CREATININE FOR GFR 0.79 MG/DL (0.70-1.30); EOSINOPHILS 3 % (0-3); GLOMERULAR FILTRATION RATE > 60.0 (>49); GLUCOSE, FASTING 109 MG/DL (70-100); LDH LACTATE DEHYDROGENASE 202 U/L (87-241); LYMPHOCYTES 11 % (16-44); MAGNESIUM LEVEL 1.5 MG/DL (1.8-2.4); MONOCYTES 3 % (0-5); NEUTROPHILS 80 % (28-66); PHOSPHORUS LEVEL 3.3 MG/DL (2.5-4.9); PLATELET ESTIMATE DECREASED (NORMAL); POTASSIUM SERUM 3.9 MEQ/L (3.5-5.1); SODIUM LEVEL 140 MEQ/L (136-145); TOTAL PROTEIN 4.9 GM/DL (6.4-8.2); TRIGLYCERIDES LEVEL 131 MG/DL (<150)
[2019-09-24] MEDS: IPRATROPIUM 0.5MG/ALBUTEROL 2.5MG INH SOL UD 3ML (DUONEB)(J7620) NEB SCH ×4 (07:18→19:44)
[2019-09-24] MEDS: APIXABAN 5 MG TAB (ELIQUIS) PO SCH ×2 (08:12→20:28)
[2019-09-24] MEDS: SERTRALINE HCL 25 MG TABLET PO SCH (08:12)
[2019-09-24] MEDS: FOLIC ACID 1 MG TAB PO SCH (08:12)
[2019-09-24] MEDS: PANTOPRAZOLE 40MG TAB (PROTONIX) PO SCH (08:12)
[2019-09-24] MEDS: CYANOCOBALAMIN 500 MCG TAB PO SCH (08:12)
[2019-09-24 10:00] VITALS: BP 124/89
[2019-09-24] MEDS ORDERED: LIDOCAINE VISCOUS 2% SOLN 15ML UDC SSP PRN (10:00)
--- NOTE | 2019-09-24 10:02 | IPNPDOC ---
Subjective Date Seen The patient was seen on 09/24/19. Subjective Chief Complaint/HPI Pt this morning states that his mouth is really sore, feels raw, has been sore several days without improvement. Not mentioned until today. General: Reports: Fatigue Constitutional: Denies: Chills, Fever Pulmonary: Reports: Dyspnea; Denies: Cough Cardiovascular: Denies: Chest Pain, Palpitations Gastrointestinal: Denies: Nausea, Vomiting Neurological: Reports: Weakness Psych: Reports: Depression Objective Physical Examination General Exam: Positive: Alert, Cooperative, No Acute Distress (laying on the bed resting when I entered the room) Eye Exam: Positive: Conjunctiva & lids normal; Negative: Sclera icteric ENT Exam: Positive: Mucous membr. moist/pink (dry with sores on the tongue and hard and soft palate, white plaque on the sides of the tongue. Appearance consistent with Thrush with element of chemo related stomatitis.) Neck Exam: Positive: Supple; Negative: JVD, Lymphadenopathy Chest Exam: Positive: Diminished (no breath sounds in left base. generally ); Negative: Normal air movement (minimal rales, diminished breath sounds in lef t base.), Rhonchi, Wheezing Heart Exam: Positive: Tachycardic (HR typically around 100 but speeds to 120's with activity.), Normal S1, Normal S2; Negative: Murmurs Abdomen Exam: Positive: Normal bowel sounds, Soft; Negative: Tenderness Extremity Exam: Negative: Edema Skin Exam: Positive: Nl turgor and temperature; Negative: Rash Neuro Exam: Positive: Other (generally weak, dyspneic with minimal movement.) Psych Exam: Positive: Mental status NL, Oriented x 3 Assessment /Plan Problems (1) Acute respiratory acidosis Response to Treatment: Stable, Compensated Discussed With: Nurse, Patient Support Associate, Patient, Family with Pt Consent Problem Specific Plan: Monitor Clinically, Repeat Tests Problem Text: 09/24 resp status stable. 09/23: CXR stable. 09/22: still in ICU due to bed availability. 09/21: to PCU today. Very easily fatigued. Still has poor aeration in left base. CXR shows interstitial changes in right lung ervin as well, maybe a little less prominent than on admission and maybe minimal aeration in left compared to a dmission. His respiratory status seems to be stabilized. He continues to be monitored by Dr. Gandara. She will continue to consult, but has requested that we take primary responsibility for the patient. He can probably leave the ICU soon. (2) Mesothelioma Status: Acute Response to Treatment: Progressing Discussed With: Nurse, Patient Support Associate, Patient, Family with Pt Consent Problem Specific Plan: Monitor Clinically Problem Text: 09/24 WBC cont to trend upward, plt cont to trend down. 09/23: WBC improved. platelets down today. Not eating, albumin low so he is m alnourished. Dr. Betancourt has recommended TPN until he can resume po intake. Should have PICC today then can start TPN. Hopefully this will be a temporary measure so Tube feeding not recommended at this point. 09/22: WBC down, Dr. Betancourt has recommended single dose of neupogen. Dr. Hsieh is care transition manager for oncology today; his primary oncologist is Dr. Betancourt. He has locally advanced clinical stage IV, T4N2M1 malignant mesothelioma of the plura. He is day five after cisplatin/pemetrexed/bevacizumab. Per Dr. Hsieh this is often the worst day for patients. He clearly has some respiratory and cardiac toxicity related to this combination. The question is whether he will recover well enough to be able to have his next round in 3-4 weeks. This question doesn't seem to be answered yet. (3) Chemotherapy-induced cardiomyopathy Status: Acute Response to Treatment: Stable Discussed With: Patient Support Associate, Patient, Family with Pt Consent Problem Specific Plan: Monitor Clinically Problem Text: 09/21: tachycardia thought to be compensatory mechanism so no rate lowering agents on board. I spoke with Dr. Richter about this patient. He feels that there is cardiotoxicity to the regimen, but there is nothing that he can do to improve this. It doesn't seem to be of coronary arterial origin. He will continue to monitor the patient with us, but may not be putting in daily notes. (4) Tachycardia Status: Chronic Response to Treatment: Stable Problem Specific Plan: Monitor Clinically Problem Text: Per the patient his tachycardia has been present even before the chemotherapy. Dr. Richter is of the opinion that it is physiologic tachycardia related to hypoxemia and his mesothelioma. He does not suggest we do anything to slow the heart rate down since this will be eliminating his ability to compensate. His TSH was checked and is WNL. (5) Pulmonary embolism Status: Acute Response to Treatment: Stable Problem Specific Plan: Monitor Clinically Problem Text: 09/21: since no invasive procedure is anticipated, will d/c Lovenox and resume Eliquis 5 bid. He was dx with a PE in 07/2019. He is on full tx doses of Lovenox. This certainly could contribute to his tachycardia. (6) Pleural effusion on left Status: Chronic Response to Treatment: Stable Problem Specific Plan: Monitor Clinically Problem Text: 09/22: will repeat cXR in am. This has been present since at least 2016. Dr. Gandara has considered draining it to see if it helps with his respiratory status, but since he is improving without the procedure we will defer that for now. (7) Chemotherapy induced neutropenia Status: Acute Response to Treatment: Improving Problem Specific Plan: Consult Specialist Problem Text: WBC 1500, ANC about 1100. Will need Granulocyte stimulating factor. Dr. Betancourt contacted. (8) Diarrhea Status: Resolved Discussed With: Nurse Problem Text: check GI panel and Hemoccult. (9) Stomatitis and mucositis Status: Acute Problem Text: With white plaques c/w thrush. Not much on lips but extensive shallow red lesions on tongue and mucosa, pharynx. Plan/VTE VTE Prophylaxis Ordered?: Yes (tx doses of Lovenox) Plan Activity: Advance (the primary thing he seems to need today is strengthening. He may be within a couple days of discharge with home P/T. Alternatively he may need ARU or SNF if he doesn't bounce back quickly.) Therapy: PT, OT Advance Directives: DNR, Other Advance Directive (I had a conversation with him about his advanced directives. He wishes to be FULL CODE. He does not want to be kept alive on life sustaining treatment if he does have to be coded. His (and HCP) knows his wishes and will help us if we need to understand what he would want.) VS, I&O, 24H, Fishbone Vital Signs/I&O Vital Signs Date Time Temp Pulse Resp B/P (MAP) Pulse Ox O2 Delivery O2 Flow Rate FiO2 09/24/19 06:00 97.6 118 18 132/78 (96) 95 Nasal Cannula 4.0 09/19/19 09:01 50 I&O- Last 24 Hours up to 6 AM 09/24/19 06:00 Intake Total 630 ml Output Total 775 ml Balance -145 ml Laboratory Data 24H LABS Laboratory Tests 2 09/23/19 23:52: Bedside Glucose (Misc Panel) 124H 09/24/19 05:39: Bedside Glucose (Misc Panel) 97 09/24/19 06:06: Nucleated Red Blood Cells % (auto) 0.0, Neutrophils 80H, Band Neutrophils 3, Lymphocytes (Manual) 11L, Monocytes (Manual) 3, Eosinophils (Manual) 3, Anisocytosis 1+, Platelet Estimate DECREASED, Immature Platelet Fraction 3.1, Anion Gap 2L, Glomerular Filtration Rate > 60.0, Calcium Level 8.9, Phosphorus L evel 3.3, Magnesium Level 1.5L, Total Bilirubin 0.7, Aspartate Amino Transf (AST/SGOT) 40H, Alanine Aminotransferase (ALT/SGPT) 40, Alkaline Phosphatase 90, Lactate Dehydrogenase 202, Total Creatine Kinase 31L, Total Protein 4.9L, Albumin 2.0L, Albumin/Globulin Ratio 0.69L, Triglycerides Level 131, Cholesterol Level 130 CBC/BMP Laboratory Tests 09/24/19 06:06 Microbiology Microbiology 09/22/19 Stool Occult Blood (KRZYSZTOF) - Final, Complete 09/18/19 Blood Culture - Final, Complete NO GROWTH AFTER 5 DAYS 09/18/19 Blood Culture - Final, Complete NO GROWTH AFTER 5 DAYS 09/18/19 Respiratory Virus Panel (PCR) (KRZYSZTOF) - Final, Complete ERIC MARTI PA-C Sep 24, 2019 10:01 Gato Paez MD Sep 24, 2019 11:56
[2019-09-24] MEDS: NYSTATIN 500,000 U/5 ML SUSP UDC SS SCH ×2 (12:18→17:42)
[2019-09-24 14:00] VITALS: BP 130/89
[2019-09-24] MEDS ORDERED: AMINO AC/ELECTROLYTE/DEX/CALC 2,000 ML IV SCH (18:00)
[2019-09-24] MEDS ORDERED: FAT EMULSION IV 20% 500 ML IV SCH (18:00)
[2019-09-24 19:45] VITALS: O2SAT 96
[2019-09-24] MEDS: TAMSULOSIN 0.4 MG CAP PO SCH (20:28)
[2019-09-24 22:00] VITALS: BP 129/87
[2019-09-25] VITALS (46 sets, daily range): BP systolic 79–126; BP diastolic 52–78
[2019-09-25] MEDS: HumaLOG INSULIN (NovoLOG) PER UNIT SC SCH ×4 (00:24→17:44)
[2019-09-25] MEDS: NYSTATIN 500,000 U/5 ML SUSP UDC SS SCH ×4 (00:24→18:07)
[2019-09-25] MEDS: ALBUTEROL SULFATE 2.5 MG/0.5 ML INH NEB SOLN NEB PRN (05:31)
[2019-09-25] MEDS: SODIUM CHLORIDE 0.9% INJ 10 ML SYR IV SCH ×2 (05:58→17:58)
[2019-09-25 06:09] LABS: HEMATOCRIT 29.4 % (42.0-52.0); HEMOGLOBIN 8.9 g/dl (13.5-17.5); MEAN CORPUSCULAR HEMOGLOBIN 24.3 pg (27.0-33.0); MEAN CORPUSCULAR HGB CONC 30.3 g/dl (32.0-36.5); MEAN CORPUSCULAR VOLUME 80.3 fl (80.0-96.0); RED BLOOD COUNT 3.66 10^6/uL (4.30-6.10); WHITE BLOOD COUNT 4.7 10^3/uL (4.0-10.0)
[2019-09-25 06:15] LABS: PLATELET COUNT, AUTOMATED 27 10^3/uL (150-450)
[2019-09-25 06:31] LABS: LYMPHOCYTES 8 % (16-44); NEUTROPHILS 92 % (28-66); PLATELET ESTIMATE MARKED DECREASE (NORMAL)
[2019-09-25 06:33] LABS: DOHLE BODIES 1+
[2019-09-25 06:34] LABS: ANISOCYTOSIS 1+; HYPOCHROMASIA 1+
[2019-09-25 06:44] LABS: ALBUMIN 1.9 GM/DL (3.2-5.2); ALT/SGPT 37 U/L (12-78); BILIRUBIN,TOTAL 0.7 MG/DL (0.2-1.0); BLOOD UREA NITROGEN 43 MG/DL (7-18); CALCIUM LEVEL 8.7 MG/DL (8.8-10.2); CARBON DIOXIDE LEVEL 36 MEQ/L (21-32); CHLORIDE LEVEL 99 MEQ/L (98-107); CHOLESTEROL LEVEL 124 MG/DL (< 200); CPK CREATINE PHOSPHOKINASE 25 U/L (39-308); CREATININE FOR GFR 0.74 MG/DL (0.70-1.30); GLOMERULAR FILTRATION RATE > 60.0 (>49); GLUCOSE, FASTING 106 MG/DL (70-100); LDH LACTATE DEHYDROGENASE 212 U/L (87-241); MAGNESIUM LEVEL 1.5 MG/DL (1.8-2.4); PHOSPHORUS LEVEL 3.6 MG/DL (2.5-4.9); POTASSIUM SERUM 3.9 MEQ/L (3.5-5.1); SODIUM LEVEL 140 MEQ/L (136-145); TRIGLYCERIDES LEVEL 120 MG/DL (<150)
[2019-09-25] MEDS: IPRATROPIUM 0.5MG/ALBUTEROL 2.5MG INH SOL UD 3ML (DUONEB)(J7620) NEB SCH ×4 (07:33→19:44)
--- NOTE | 2019-09-25 07:40 | REP ---
Clinical: Hypoxia. Comparison: 09/23/2019. Findings: Diffuse chronic bilateral pleuroparenchymal changes are essentially unchanged as compared to 09/23/2019. Subtle superimposed acute process cannot definitively be excluded. The mediastinum and cardiac silhouette are stable. Right-sided PICC line with tip in the SVC unchanged. No acute pneumothorax. Impression: Diffuse bilateral pleuroparenchymal changes similar to multiple prior examinations. Subtle superimposed acute process cannot be excluded. Electronically Signed by Rodrigo Lawson MD 09/25/2019 07:32 A
[2019-09-25] MEDS: FOLIC ACID 1 MG TAB PO SCH (08:58)
[2019-09-25] MEDS: CYANOCOBALAMIN 500 MCG TAB PO SCH (08:58)
[2019-09-25] MEDS: PANTOPRAZOLE 40MG TAB (PROTONIX) PO SCH (08:58)
[2019-09-25] MEDS: SERTRALINE HCL 25 MG TABLET PO SCH (08:58)
[2019-09-25] MEDS ORDERED: MAG SULF 1GM/100ML (MAG RUN) 1 GM in IV 1 EA IV ONE (09:00)
[2019-09-25] MEDS ORDERED: FUROSEMIDE 20 MG/2 ML VIAL (J1940) IV ONE ×2 (09:00→18:00)
--- NOTE | 2019-09-25 09:05 | IPNPDOC ---
Subjective Date Seen The patient was seen on 09/25/19. Subjective Chief Complaint/HPI Overnight pt became more SOB, required Ventimask to maintain sats, had some bleeding from sores around his lips. His breathing this morning seems to be a little better, sores are not current bleeding. General: Reports: Fatigue Constitutional: Reports: Malaise Pulmonary: Reports: Dyspnea Gastrointestinal: Denies: Nausea, Vomiting, Abdominal Pain Neurological: Reports: Weakness Objective Physical Examination General Exam: Positive: Alert, Cooperative, No Acute Distress (in bed, chronic ally ill, cachetic) Eye Exam: Negative: Sclera icteric ENT Exam: Positive: Mucous membr. moist/pink (sores on the tongue and hard and soft palate, white plaque on the sides of the tongue has improved. Appearance consistent with Thrush with element of chemo related stomatitis/mucositis) Neck Exam: Positive: Supple, JVD; Negative: Lymphadenopathy Chest Exam: Positive: Diminished (no breath sounds in left base. generally ); Negative: Normal air movement (markedly dim at L base, some rales more notable at the R base. ), Rhonchi, Wheezing Heart Exam: Positive: Tachycardic (HR typically around 100 but speeds to 120's with activity.), Normal S1, Normal S2; Negative: Murmurs Abdomen Exam: Positive: Normal bowel sounds, Soft, Other (rectal bleeding noted.); Negative: Tenderness Extremity Exam: Negative: Edema Skin Exam: Positive: Nl turgor and temperature; Negative: Rash Neuro Exam: Positive: Other (generally weak, dyspneic with minimal movement.) Psych Exam: Positive: Mental status NL, Oriented x 3 Assessment /Plan Problems (1) Acute respiratory acidosis Response to Treatment: Stable, Compensated Discussed With: Nurse, Scenic Artist, Patient, Family with Pt Consent Problem Specific Plan: Monitor Clinically, Repeat Tests Problem Text: 09/25 increased resp compromise this morning, CXR looks wet so, Lasix 20 mg IV x 1 ordered, monitor. Pt recently with increased fluid intake d/t TPN. Subsequently however, GI bleeding ensued, creating acute volume loss, so NS bolus required. 09/24 resp status stable. 09/23: CXR stable. 09/22: still in ICU due to bed availability. 09/21: to PCU today. Very easily fatigued. Still has poor aeration in left base. CXR shows interstitial changes in right lung ervin as well, maybe a little less prominent than on admission and maybe minimal aeration in left compared to admission. His respiratory status seems to be stabilized. He continues to be monitored by Dr. Gandara. She will continue to consult, but has requested that we take primary responsibility for the patient. He can probably leave the ICU soon. (2) Pancytopenia Status: Acute Response to Treatment: Worse Discussed With: Patient Problem Specific Plan: Consult Specialist, Monitor Clinically, Repeat Labs Problem Text: 09/25 Hgb down from 10.2 to 8.9, Plts have been trending down, currently at 27, were 47 yesterday. Eliquis stopped this morning. I have called and LM for call back from Dr Betancourt to discuss. He had been following the pt. Suggests check PT/PTT. Also platelet transfusion. PRBC ordered. Andexxa not available. Not clear if Kcentra would be useful in this setting. (3) Mesothelioma Status: Acute Response to Treatment: Progressing Discussed With: Nurse, Scenic Artist, Patient, Family with Pt Consent Problem Specific Plan: Monitor Clinically Problem Text: 09/25 LM for call back from Dr Betancourt to report decline in plts and hgb. Discussed poor prognosis and recommended to and Sister that they institute DNR order. 09/24 WBC cont to trend upward, plt cont to trend down. 09/23: WBC improved. platelets down today. Not eating, albumin low so he is malnourished. Dr. Betancourt has recommended TPN until he can resume po intake. Should have PICC today then can start TPN. Hopefully this will be a temporary measure so Tube feeding not recommended at this point. 09/22: WBC down, Dr. Betancourt has recommended single dose of neupogen. Dr. Hsieh is manager application for oncology today; his primary oncologist is Dr. Betancourt. He has locally advanced clinical stage IV, T4N2M1 malignant mesothelioma of the plura. He is day five after cisplatin/pemetrexed/bevacizumab. Per Dr. Hsieh this is often the worst day for patients. He clearly has some respiratory and cardiac toxicity related to this combination. The question is whether he will recover well enough to be able to have his next round in 3-4 weeks. This question doesn't seem to be answered yet. (4) Chemotherapy-induced cardiomyopathy Status: Acute Response to Treatment: Stable Discussed With: Scenic Artist, Patient, Family with Pt Consent Problem Specific Plan: Monitor Clinically Problem Text: 09/25: more tachy today. response to GI blood loss and dropping pressure. 09/21: tachycardia thought to be compensatory mechanism so no rate lowering agents on board. I spoke with Dr. Richter about this patient. He feels that there is cardiotoxicity to the regimen, but there is nothing that he can do to improve this. It doesn't seem to be of coronary arterial origin. He will continue to monitor the patient with us, but may not be putting in daily notes. (5) Tachycardia Status: Chronic Response to Treatment: Stable Problem Specific Plan: Monitor Clinically Problem Text: Per the patient his tachycardia has been present even before the chemotherapy. Dr. Richter is of the opinion that it is physiologic tachycardia related to hypoxemia and his mesothelioma. He does not suggest we do anything to slow the heart rate down since this will be eliminating his ability to compensate. His TSH was checked and is WNL. (6) Pulmonary embolism Status: Acute Response to Treatment: Stable Problem Specific Plan: Monitor Clinically Problem Text: 09/25 eliquis stopped today d/t Hgb and plts dropping. 09/21: since no invasive procedure is anticipated, will d/c Lovenox and resume Eliquis 5 bid. He was dx with a PE in 07/2019. He is on full tx doses of Lovenox. This certainly could contribute to his tachycardia. (7) Pleural effusion on left Status: Chronic Response to Treatment: Stable Problem Specific Plan: Monitor Clinically Problem Text: 09/22: will repeat cXR in am. This has been present since at least 2016. Dr. Gandara has considered draining it to see if it helps with his respiratory status, but since he is im proving without the procedure we will defer that for now. (8) Chemotherapy induced neutropenia Status: Resolved Response to Treatment: Improving Problem Specific Plan: Consult Specialist Problem Text: WBC 1500, ANC about 1100. Will need Granulocyte stimulating factor. Dr. Betancourt contacted. (9) Diarrhea Status: Resolved Discussed With: Nurse Problem Text: check GI panel and Hemoccult. (10) Stomatitis and mucositis Status: Acute Problem Text: 09/25 suspect mucositis more diffusely than mouth only and may be responsible for source of GI blood loss. With white plaques c/w thrush. Not much on lips but extensive shallow red l esions on tongue and mucosa, pharynx. Plan/VTE VTE Prophylaxis Ordered?: Yes (tx doses of Lovenox) Plan Activity: Advance (the primary thing he seems to need today is strengthening. He may be within a couple days of discharge with home P/T. Alternatively he may need ARU or SNF if he doesn't bounce back quickly.) Therapy: PT, OT Advance Directives: Other Advance Directive (09/25: reviewed this question again with and sister. No change in status at this time. I had a conversation with him about his advanced directives. He wishes to be FULL CODE. He does not want to be kept alive on life sustaining treatment if he does have to be coded. His (and HCP) knows his wishes and will help us if we need to understand what he would want.) VS, I&O, 24H, Fishbone Vital Signs/I&O Vital Signs Date Time Temp Pulse Resp B/P (MAP) Pulse Ox O2 Delivery O2 Flow Rate FiO2 09/25/19 06:00 97.3 127 36 126/74 (91) 88 Venturi Mask 40 I&O- Last 24 Hours up to 6 AM 09/25/19 05:59 Intake Total 1370 ml Output Total 375 ml Balance 995 ml Laboratory Data 24H LABS Laboratory Tests 2 09/24/19 11:22: Bedside Glucose (Misc Panel) 113 09/24/19 16:42: Bedside Glucose (Misc Panel) 102 09/25/19 00:12: Bedside Glucose (Misc Panel) 101 09/25/19 05:40: Bedside Glucose (Misc Panel) 98 09/25/19 05:54: Nucleated Red Blood Cells % (auto) 0.0, Neutrophils 92H, Lymphocytes (Manual) 8L, Hypochromasia 1+, Anisocytosis 1+, Dohle Bodies 1+, Platelet Estimate MARKED DECREASE, Anion Gap 5L, Glomerular Filtration Rate > 60.0, Calcium Level 8.7L, Phosphorus Level 3.6, Magnesium Level 1.5L, Total Bilirubin 0.7, Aspartate Amino Transf (AST/SGOT) 40H, Alanine Aminotransferase (ALT/SGPT) 37, Alkaline Phosphatase 107, Lactate Dehydrogenase 212, Total Creatine Kinase 25L, Total Protein 5.0L, Albumin 1.9L, Albumin/Globulin Ratio 0.61L, Triglycerides Level 120, Cholesterol Level 124 CBC/BMP Laboratory Tests 09/25/19 05:54 Microbiology Microbiology 09/22/19 Stool Occult Blood (KRZYSZTOF) - Final, Complete 09/18/19 Blood Culture - Final, Complete NO GROWTH AFTER 5 DAYS 09/18/19 Blood Culture - Final, Complete NO GROWTH AFTER 5 DAYS 09/18/19 Respiratory Virus Panel (PCR) (KRZYSZTOF) - Final, Complete ERIC MARTI PA-C Sep 25, 2019 09:05 Gato Paez MD Sep 25, 2019 11:32
[2019-09-25] MEDS ORDERED: NS 500 ML IV ONE ×3 (11:00→11:15)
[2019-09-25 11:05] LABS: INR 1.21; PARTIAL THROMBOPLASTIN TIME 29.1 SECONDS (25.0-38.4); PROTHROMBIN TIME 15.1 SECONDS (11.8-14.0)
[2019-09-25] MEDS ORDERED: PHYTONADIONE 5 MG TAB PO ONE (15:00)
[2019-09-25 16:27] LABS: HEMATOCRIT 25.8 % (42.0-52.0); HEMOGLOBIN 8.5 g/dl (13.5-17.5); MEAN CORPUSCULAR HEMOGLOBIN 26.9 pg (27.0-33.0); MEAN CORPUSCULAR HGB CONC 32.9 g/dl (32.0-36.5); MEAN CORPUSCULAR VOLUME 81.6 fl (80.0-96.0); RED BLOOD COUNT 3.16 10^6/uL (4.30-6.10)
[2019-09-25 16:29] LABS: PLATELET COUNT, AUTOMATED 67 10^3/uL (150-450)
[2019-09-25] MEDS ORDERED: MULTIVITAMIN -ADULT INJECTION 10 ML, CR/CU/SE/MN/ZN INJ 1 ML in AMINO AC/ELECTROLYTE/DE... IV SCH (18:00)
[2019-09-25] MEDS ORDERED: FAT EMULSION IV 20% 500 ML IV SCH (18:00)
[2019-09-25] MEDS: PANTOPRAZOLE 40MG INJ (PROTONIX) (C9113) IV SCH (20:05)
[2019-09-25] MEDS: TAMSULOSIN 0.4 MG CAP PO SCH (20:05)
[2019-09-25 20:25] LABS: HEMATOCRIT 29.5 % (42.0-52.0); HEMOGLOBIN 9.4 g/dl (13.5-17.5); MEAN CORPUSCULAR HEMOGLOBIN 25.8 pg (27.0-33.0); MEAN CORPUSCULAR HGB CONC 31.9 g/dl (32.0-36.5); MEAN CORPUSCULAR VOLUME 80.8 fl (80.0-96.0); RED BLOOD COUNT 3.65 10^6/uL (4.30-6.10); WHITE BLOOD COUNT 4.7 10^3/uL (4.0-10.0)
[2019-09-25 20:27] LABS: PLATELET COUNT, AUTOMATED 54 10^3/uL (150-450)
[2019-09-26] VITALS (15 sets, daily range): BP systolic 107–127; BP diastolic 64–88; O2SAT 92
[2019-09-26] MEDS: NYSTATIN 500,000 U/5 ML SUSP UDC SS SCH ×5 (00:09→23:14)
[2019-09-26] MEDS: HumaLOG INSULIN (NovoLOG) PER UNIT SC SCH ×5 (00:09→23:15)
[2019-09-26] MEDS: SODIUM CHLORIDE 0.9% INJ 10 ML SYR IV SCH ×2 (05:56→18:29)
[2019-09-26 06:14] LABS: HEMOGLOBIN 8.1 g/dl (13.5-17.5); MEAN CORPUSCULAR HEMOGLOBIN 25.7 pg (27.0-33.0); MEAN CORPUSCULAR HGB CONC 32.4 g/dl (32.0-36.5); MEAN CORPUSCULAR VOLUME 79.4 fl (80.0-96.0); RED BLOOD COUNT 3.15 10^6/uL (4.30-6.10); WHITE BLOOD COUNT 3.2 10^3/uL (4.0-10.0)
[2019-09-26 06:31] LABS: PLATELET COUNT, AUTOMATED 39 10^3/uL (150-450)
[2019-09-26 06:34] LABS: ALBUMIN 1.6 GM/DL (3.2-5.2); ALT/SGPT 24 U/L (12-78); BILIRUBIN,TOTAL 0.6 MG/DL (0.2-1.0); BLOOD UREA NITROGEN 54 MG/DL (7-18); CALCIUM LEVEL 7.9 MG/DL (8.8-10.2); CARBON DIOXIDE LEVEL 35 MEQ/L (21-32); CHLORIDE LEVEL 102 MEQ/L (98-107); CHOLESTEROL LEVEL 95 MG/DL (< 200); CPK CREATINE PHOSPHOKINASE 36 U/L (39-308); GLOMERULAR FILTRATION RATE > 60.0 (>49); GLUCOSE, FASTING 110 MG/DL (70-100); LDH LACTATE DEHYDROGENASE 212 U/L (87-241); MAGNESIUM LEVEL 1.6 MG/DL (1.8-2.4); PHOSPHORUS LEVEL 3.8 MG/DL (2.5-4.9); POTASSIUM SERUM 3.8 MEQ/L (3.5-5.1); SODIUM LEVEL 144 MEQ/L (136-145); TOTAL PROTEIN 4.1 GM/DL (6.4-8.2); TRIGLYCERIDES LEVEL 107 MG/DL (<150)
[2019-09-26 06:54] LABS: ANISOCYTOSIS 1+; LYMPHOCYTES 7 % (16-44); MONOCYTES 4 % (0-5); NEUTROPHILS 89 % (28-66); PLATELET ESTIMATE MARKED DECREASE (NORMAL)
[2019-09-26 06:55] LABS: MICROCYTOSIS 1+; TOXIC GRANULATION 1+
[2019-09-26] MEDS: IPRATROPIUM 0.5MG/ALBUTEROL 2.5MG INH SOL UD 3ML (DUONEB)(J7620) NEB SCH ×4 (07:54→19:28)
[2019-09-26] MEDS: FOLIC ACID 1 MG TAB PO SCH (09:15)
[2019-09-26] MEDS: CYANOCOBALAMIN 500 MCG TAB PO SCH (09:15)
[2019-09-26] MEDS: PANTOPRAZOLE 40MG INJ (PROTONIX) (C9113) IV SCH ×2 (09:16→20:05)
[2019-09-26] MEDS: SERTRALINE HCL 25 MG TABLET PO SCH (09:16)
[2019-09-26] MEDS ORDERED: MAG SULF 1GM/100ML (MAG RUN) 1 GM in IV 1 EA IV ONE (12:00)
[2019-09-26] MEDS ORDERED: MULTIVITAMIN -ADULT INJECTION 10 ML, CR/CU/SE/MN/ZN INJ 1 ML in AMINO AC/ELECTROLYTE/DE... IV SCH (18:00)
[2019-09-26] MEDS ORDERED: FAT EMULSION IV 20% 500 ML IV SCH (18:00)
[2019-09-26] MEDS ORDERED: AMINO AC/ELECTROLYTE/DEX/CALC 2,000 ML IV SCH (18:08)
[2019-09-26] MEDS: TAMSULOSIN 0.4 MG CAP PO SCH (20:05)
[2019-09-27] VITALS (18 sets, daily range): BP systolic 107–145; BP diastolic 62–89
[2019-09-27] MEDS ORDERED: BENZONATATE 100 MG CAP PO PRN (00:15)
[2019-09-27] MEDS ORDERED: guaiFENesin 200 MG TAB PO PRN (00:15)
--- NOTE | 2019-09-27 01:14 | IPNPDOC ---
Subjective Date Seen The patient was seen on 09/26/19. Subjective Chief Complaint/HPI He appeared to be feeling a bit better when I saw him, though his oral ulcers made him uncomfortable and limited his PO intake. Late night/ intervention nurse I was called, with worsening cough and dyspnea. Apparently he has the sensation of a foreign body in his throat, and coughed up some bloody tissue and a large amount of Mucinex. Increasing oxygen demands. He remains DNR/DNI. Constitutional: Reports: Malaise, Fatigue; Denies: Chills, Fever ENT: Reports: Sore Throat Skin: Reports: Rash, Lesions Pulmonary: Reports: Dyspnea, Cough Cardiovascular: Denies: Chest Pain Gastrointestinal: Denies: Nausea, Vomiting, Diarrhea, Constipation Hematologic: Denies: Bleeding Excessively Psych: Reports: Mood Normal Objective Physical Examination General Exam: Positive: Alert, Cooperative, No Acute Distress (in bed, chronically ill, cachetic) Eye Exam: Negative: Sclera icteric ENT Exam: Positive: Mucous membr. moist/pink (sores on the tongue and hard and soft palate, white plaque on the sides of the tongue has improved. Appearance consistent with Thrush with element of chemo related stomatitis/mucositis) Neck Exam: Positive: Supple, JVD; Negative: Lymphadenopathy Chest Exam: Positive: Diminished (no breath sounds in left base. generally ); Negative: Normal air movement (markedly dim at L base, some rales more notable at the R base. ), Rhonchi, Wheezing Heart Exam: Positive: Tachycardic (HR typically around 100 but speeds to 120's with activity.), Normal S1, Normal S2; Negative: Murmurs Abdomen Exam: Positive: Normal bowel sounds, Soft, Other (rectal bleeding noted.); Negative: Tenderness Extremity Exam: Negative: Edema Skin Exam: Positive: Nl turgor and temperature; Negative: Rash Neuro Exam: Positive: Other (generally weak, dyspneic with minimal movement.) Psych Exam: Positive: Mental status NL, Oriented x 3 Assessment /Plan Problems (1) Acute respiratory acidosis Response to Treatment: Stable, Compensated Discussed With: Nurse, Healthcare Corporate Account Director, Patient, Family with Pt Consent Problem Specific Plan: Monitor Clinically, Repeat Tests Problem Text: 09/26 -- sudden respiratory distress, appears to have partially cleared a mucus plug, cough suppressant and guaifenesin ordered 09/25 increased resp compromise this morning, CXR looks wet so, Lasix 20 mg IV x 1 ordered, monitor. Pt recently with increased fluid intake d/t TPN. Subsequently however, GI bleeding ensued, creating acute volume loss, so NS bolus required. 09/24 resp status stable. 09/23: CXR stable. 09/22: still in ICU due to bed availability. 09/21: to PCU today. Very easily fatigued. Still has poor aeration in left base. CXR shows interstitial changes in right lung ervin as well, maybe a little less prominent than on admission and maybe minimal aeration in left compared to admission. His respiratory status seems to be stabilized. He continues to be monitored by Dr. Gandara. She will continue to consult, but has requested that we take primary responsibility for the patient. He can probably leave the ICU soon. (2) Pancytopenia Status: Acute Response to Treatment: Worse Discussed With: Patient Problem Specific Plan: Consult Specialist, Monitor Clinically, Repeat Labs Problem Text: 09/27 -- his platelets in particular remain low 09/25 Hgb down from 10.2 to 8.9, Plts have been trending down, currently at 27, were 47 yesterday. Eliquis stopped this morning. I have called and LM for call back from Dr Betancourt to discuss. He had been following the pt. Suggests check PT/PTT. Also platelet transfusion. PRBC ordered. Andexxa not available. Not clear if Kcentra would be useful in this setting. (3) Mesothelioma Status: Acute Response to Treatment: Progressing Discussed With: Nurse, Healthcare Corporate Account Director, Patient, Family with Pt Consent Problem Specific Plan: Monitor Clinically Problem Text: 09/25 LM for call back from Dr Betancourt to report decline in plts and hgb. Discussed poor prognosis and recommended to and Sister that they institute DNR order. 09/24 WBC cont to trend upward, plt cont to trend down. 09/23: WBC improved. platelets down today. Not eating, albumin low so he is malnourished. Dr. Betancourt has recommended TPN until he can resume po intake. Should have PICC today then can start TPN. Hopefully this will be a temporary measure so Tube feeding not recommended at this point. 09/22: WBC down, Dr. Betancourt has recommended single dose of neupogen. Dr. Hsieh is crm solution architect for oncology today; his primary oncologist is Dr. Betancourt. He has locally advanced clinical stage IV, T4N2M1 malignant mesothelioma of the plura. He is day five after cisplatin/pemetrexed/bevacizumab. Per Dr. Hsieh this is often the worst day for patients. He clearly has some respiratory and cardiac toxicity related to this combination. The question is whether he will recover well enough to be able to have his next round in 3-4 weeks. This question doesn't seem to be answered yet. (4) Chemotherapy-induced cardiomyopathy Status: Acute Response to Treatment: Stable Discussed With: Healthcare Corporate Account Director, Patient, Family with Pt Consent Problem Specific Plan: Monitor Clinically Problem Text: 09/25: more tachy today. response to GI blood loss and dropping pressure. 09/21: tachycardia thought to be compensatory mechanism so no rate lowering agents on board. I spoke with Dr. Richter about this patient. He feels that there is cardiotoxicity to the regimen, but there is nothing that he can do to improve this. It doesn't seem to be of coronary arterial origin. He will continue to monitor the patient with us, but may not be putting in daily notes. (5) Tachycardia Status: Chronic Response to Treatment: Stable Problem Specific Plan: Monitor Clinically Problem Text: Per the patient his tachycardia has been present even before the chemotherapy. Dr. Richter is of the opinion that it is physiologic tachycardia related to hypoxemia and his mesothelioma. He does not suggest we do anything to slow the heart rate down since this will be eliminating his ability to c ompensate. His TSH was checked and is WNL. (6) Pulmonary embolism Status: Acute Response to Treatment: Stable Problem Specific Plan: Monitor Clinically Problem Text: 09/25 eliquis stopped today d/t Hgb and plts dropping. 09/21: since no invasive procedure is anticipated, will d/c Lovenox and resume Eliquis 5 bid. He was dx with a PE in 07/2019. He is on full tx doses of Lovenox. This certainly could contribute to his tachycardia. (7) Pleural effusion on left Status: Chronic Response to Treatment: Stable Problem Specific Plan: Monitor Clinically Problem Text: 09/22: will repeat cXR in am. This has been present since at least 2016. Dr. Gandara has considered draini ng it to see if it helps with his respiratory status, but since he is improving without the procedure we will defer that for now. (8) Chemotherapy induced neutropenia Status: Resolved Response to Treatment: Improving Problem Specific Plan: Consult Specialist Problem Text: WBC 1500, ANC about 1100. Will need Granulocyte stimulating factor. Dr. Betancourt contacted. (9) Diarrhea Status: Resolved Discussed With: Nurse Problem Text: check GI panel and Hemoccult. (10) Stomatitis and mucositis Status: Acute Problem Text: 09/25 suspect mucositis more diffusely than mouth only and may be responsible for source of GI blood loss. With white plaques c/w thrush. Not much on lips but extensive shallow red lesions on tongue and mucosa, pharynx. Plan/VTE VTE Prophylaxis Ordered?: Yes (tx doses of Lovenox) Plan Activity: Advance (the primary thing he seems to need today is strengthening. He may be within a couple days of discharge with home P/T. Alternatively he may need ARU or SNF if he doesn't bounce back quickly.) Therapy: PT, OT Advance Directives: Other Advance Directive (09/25: reviewed this question again with and sister. No change in status at this time. I had a conversation with him about his advanced directives. He wishes to be FULL CODE. He does not want to be kept alive on life sustaining treatment if he does have to be coded. His (and HCP) knows his wishes and will help us if we need to understand what he would want.) VS, I&O, 24H, Fishbone Vital Signs/I&O Vital Signs Date Time Temp Pulse Resp B/P (MAP) Pulse Ox O2 Delivery O2 Flow Rate FiO2 09/26/19 20:00 5.0 09/26/19 20:00 97.9 121 26 124/68 (86) 92 High Flow Cannula 09/26/19 07:52 31 I&O- Last 24 Hours up to 6 AM 09/27/19 06:00 Intake Total 1230 ml Output Total 600 ml Balance 630 ml Laboratory Data 24H LABS Laboratory Tests 2 09/26/19 05:42: Lymphocytes # (Auto) , Nucleated Red Blood Cells % (auto) 0.0, Neutrophils 89H, Lymphocytes (Manual) 7L, Monocytes (Manual) 4, Anisocytosis 1+, Microcytosis 1+, Toxic Granulation 1+, Platelet Estimate MARKED DECREASE, Anion Gap 7L, Glomerular Filtration Rate > 60.0, Calcium Level 7.9L, Phosphorus Level 3.8, Magnesium Level 1.6L, Total Bilirubin 0.6, Aspartate Amino Transf (AST/SGOT) 36, Alanine Aminotransferase (ALT/SGPT) 24, Alkaline Phosphatase 91, Lactate Dehydrogenase 212, Total Creatine Kinase 36L, Total Protein 4.1L, Albumin 1.6L, Albumin/Globulin Ratio 0.64L, Triglycerides Level 107, Cholesterol Level 95 09/26/19 05:44: Bedside Glucose (Misc Panel) 110 09/26/19 11:49: Bedside Glucose (Misc Panel) 114 09/26/19 18:13: Bedside Glucose (Misc Panel) 102 09/26/19 23:11: Bedside Glucose (Misc Panel) 128H CBC/BMP Laboratory Tests 09/26/19 05:42 Microbiology Microbiology 09/25/19 Stool Occult Blood (KRZYSZTOF) - Final, Complete 09/22/19 Stool Occult Blood (KRZYSZTOF) - Final, Complete 09/18/19 Blood Culture - Final, Complete NO GROWTH AFTER 5 DAYS 09/18/19 Blood Culture - Final, Complete NO GROWTH AFTER 5 DAYS 09/18/19 Respiratory Virus Panel (PCR) (KRZYSZTOF) - Final, Complete HARRY GODOY DO Sep 27, 2019 01:13
--- NOTE | 2019-09-27 01:19 | REPVR ---
PROCEDURE INFORMATION: Exam: XR Chest, 1 View Exam date and time: 09/27/2019 12:40 AM Age: 63 years old Clinical indication: Other: Desat TECHNIQUE: Imaging protocol: XR of the chest Views: 1 view. COMPARISON: CR PORTABLE CHEST X-RAY 2019-09-25 07:19 FINDINGS: Tubes, catheters and devices: Right upper extremity PICC line tip is in the superior atrial caval junction region. Lungs: Unchanged diffuse infiltrates in the right lung. Unchanged loculated appearing left lower lung hydropneumothorax or pulmonary lucency. Pleural space: Unremarkable. No pleural effusion. No pneumothorax. Heart/Mediastinum: Unremarkable. No cardiomegaly. Bones/joints: Unremarkable. IMPRESSION: No interval change. Electronically signed by: Karri Barakat On 09/27/2019 01:19:19 AM
[2019-09-27] MEDS: NYSTATIN 500,000 U/5 ML SUSP UDC SS SCH ×4 (06:00→23:31)
[2019-09-27] MEDS: SODIUM CHLORIDE 0.9% INJ 10 ML SYR IV SCH ×2 (06:29→18:39)
[2019-09-27] MEDS: HumaLOG INSULIN (NovoLOG) PER UNIT SC SCH ×3 (06:29→18:00)
[2019-09-27 06:39] LABS: HEMATOCRIT 22.4 % (42.0-52.0); HEMOGLOBIN 7.2 g/dl (13.5-17.5); MEAN CORPUSCULAR HEMOGLOBIN 26.2 pg (27.0-33.0); MEAN CORPUSCULAR HGB CONC 32.1 g/dl (32.0-36.5); MEAN CORPUSCULAR VOLUME 81.5 fl (80.0-96.0); RED BLOOD COUNT 2.75 10^6/uL (4.30-6.10)
[2019-09-27 07:00] LABS: ALBUMIN 1.6 GM/DL (3.2-5.2); ALT/SGPT 24 U/L (12-78); BILIRUBIN,TOTAL 0.4 MG/DL (0.2-1.0); BLOOD UREA NITROGEN 47 MG/DL (7-18); CALCIUM LEVEL 8.2 MG/DL (8.8-10.2); CARBON DIOXIDE LEVEL 37 MEQ/L (21-32); CHLORIDE LEVEL 102 MEQ/L (98-107); CHOLESTEROL LEVEL 104 MG/DL (< 200); CPK CREATINE PHOSPHOKINASE 38 U/L (39-308); CREATININE FOR GFR 0.62 MG/DL (0.70-1.30); GLOMERULAR FILTRATION RATE > 60.0 (>49); GLUCOSE, FASTING 119 MG/DL (70-100); LDH LACTATE DEHYDROGENASE 185 U/L (87-241); MAGNESIUM LEVEL 1.5 MG/DL (1.8-2.4); PHOSPHORUS LEVEL 3.8 MG/DL (2.5-4.9); POTASSIUM SERUM 3.8 MEQ/L (3.5-5.1); SODIUM LEVEL 142 MEQ/L (136-145); TOTAL PROTEIN 4.5 GM/DL (6.4-8.2); TRIGLYCERIDES LEVEL 91 MG/DL (<150)
[2019-09-27 07:06] LABS: WHITE BLOOD COUNT 1.2 10^3/uL (4.0-10.0)
[2019-09-27 07:08] LABS: PLATELET COUNT, AUTOMATED 26 10^3/uL (150-450)
[2019-09-27 07:13] LABS: ANISOCYTOSIS 1+; LYMPHOCYTES 15 % (16-44); MONOCYTES 7 % (0-5); NEUTROPHILS 78 % (28-66); PLATELET ESTIMATE MARKED DECREASE (NORMAL)
[2019-09-27 07:15] LABS: TOXIC GRANULATION 1+
[2019-09-27] MEDS: IPRATROPIUM 0.5MG/ALBUTEROL 2.5MG INH SOL UD 3ML (DUONEB)(J7620) NEB SCH ×4 (08:51→19:10)
[2019-09-27] MEDS ORDERED: MAG SULF 1GM/100ML (MAG RUN) 1 GM in IV 1 EA IV ONE (10:00)
[2019-09-27] MEDS: SERTRALINE HCL 25 MG TABLET PO SCH (10:10)
[2019-09-27] MEDS: FOLIC ACID 1 MG TAB PO SCH (10:11)
[2019-09-27] MEDS: PANTOPRAZOLE 40MG INJ (PROTONIX) (C9113) IV SCH ×2 (10:11→20:52)
[2019-09-27] MEDS: CYANOCOBALAMIN 500 MCG TAB PO SCH (10:11)
[2019-09-27] MEDS ORDERED: ISOVUE-370 76% 100ML VIAL (Q9967) As Ordered ONE (10:46)
--- NOTE | 2019-09-27 12:05 | REP ---
CT PULMONARY ANGIOGRAM: WITH IV CONTRAST. HISTORY: Dyspnea. Oxygen desaturation. There is apparently a history of mesothelioma. COMPARISON STUDIES: Comparison study, August 13, 2019. CONTRAST DOSE: 75 mL of Isovue-[address] TECHNIQUE: Helical scanning is acquired and overlapping 1.5 mm and contiguous 3 mm axial images are reformatted. In addition, maximum intensity projection and multiplanar re-formation images are generated in sagittal and coronal imaging projections. CT PULMONARY ANGIOGRAPHIC FINDINGS: There is good opacification of the pulmonary arterial tree. There is no CT evidence of pulmonary embolism. Thoracic aorta shows no evidence of aneurysm or dissection. The left vertebral is incidentally noted to take a direct aortic origin. There is a moderate-sized hydropneumothorax on the left with an air-fluid level and a moderate amount of fluid. There is thickening and enhancement of the visceral and parietal layers of the pleural effusion. Diffuse somewhat nodular pleural thickening is seen in the left hemithorax. There is a very small amount of right pleural fluid. This pleural fluid cavity is not new compared to the prior study, although the air-fluid level within it is a new finding. Extensive ground-glass opacity and interstitial lung disease and opacification are seen throughout the right lung and the remaining aerated left lung. This is consistent with inflammatory disease or lymphangitic neoplastic spread. It is more extensive than on the August 13, 2019 study. There is some coarse atelectasis in the left lower lobe and lingula. There are numerous mildly enlarged lymph nodes in the mediastinum, left axilla, and upper abdomen as before. There is a small pericardial effusion. IMPRESSION: No CT evidence of pulmonary embolus. Progressive interstitial infiltrate pattern diffusely and bilaterally more prominent than on August 13, 2019 study. Adenopathy and extensive left hemithorax pleuroparenchymal changes again seen. Electronically Signed by Anthony Barron MD 09/27/2019 02:29 P
--- NOTE | 2019-09-27 15:41 | IPNPDOC ---
Subjective Date Seen The patient was seen on 09/27/19. Subjective Chief Complaint/HPI Overnight, experienced a desaturation accompanying a prolonged coughing episode; he required 12 L high flow oxygen to maintain his oxygen saturations. No change on CXR. This gradually improved overnight, and by this morning was to his previous oxygen requirements. Nursing staff felt that perhaps he did not want to continue with aggressive treatment, and we had a conversation about goals of care and his desires. He and his had a conversation, and they aren't really sure if they continue to desire intense therapy or further chemotherapy upon hospital discharge. They would like to discuss this with Dr. Betancourt, from oncology. He has had no further bloody stools since yesterday, though his blood counts have all declined. I transfused him another unit of PRBCs. Constitutional: Denies: Chills, Fever Pulmonary: Reports: Dyspnea, Cough Cardiovascular: Denies: Chest Pain Gastrointestinal: Reports: Diarrhea, Melena (last stool was loose and dark); Denies: Nausea, Vomiting, Constipation Hematologic: Reports: Bleeding Excessively Psych: Denies: Mood Normal Objective Physical Examination General Exam: Positive: Alert, Cooperative, No Acute Distress Eye Exam: Positive: Conjunctiva & lids normal; Negative: Sclera icteric ENT Exam: Positive: Mucous membr. moist/pink, Other ENT (ulcers in mouth) Neck Exam: Positive: Supple, JVD Chest Exam: Positive: Diminished Heart Exam: Positive: Tachycardic, Normal S1, Normal S2 Telemetry: Positive: Tachycardia Abdomen Exam: Positive: Normal bowel sounds, Soft, Other; Negative: Tenderness Extremity Exam: Positive: Edema (in arms) Skin Exam: Positive: Nl turgor and temperature Neuro Exam: Positive: Other Psych Exam: Positive: Anxiety, Oriented x 3; Negative: Mood NL Assessment /Plan Problems (1) Respiratory failure, acute and chronic Problem Text: 09/27 -- Hypoxemic respiratory failure. He has required supplemental oxygen in the ICU, worsening last night, and now returning to baseline. I ordered a CT angio of the chest now that his oxygen needs were more manageable, and it did not show a PE, though it did show ground glass and interstitial lung disease, thought to be consistent with inflammation vs lymphangitic spread . 09/26 -- sudden respiratory distress, appears to have partially cleared a mucus plug, cough suppressant and guaifenesin ordered (2) Acute respiratory acidosis Response to Treatment: Stable, Compensated Discussed With: Nurse, Configuration Management Analyst, Patient, Family with Pt Consent Problem Specific Plan: Monitor Clinically, Repeat Tests Problem Text: 09/25 increased resp compromise this morning, CXR looks wet so, Lasix 20 mg IV x 1 ordered, monitor. Pt recently with increased fluid intake d/t TPN. Subsequently however, GI bleeding ensued, creating acute volume loss, so NS bolus required. 09/24 resp status stable. 09/23: CXR stable. 09/22: still in ICU due to bed availability. 09/21: to PCU today. Very easily fatigued. Still has poor aeration in left base. CXR shows interstitial changes in right lung ervin as well, maybe a little less prominent than on admission and maybe minimal aeration in left compared to admission. His respiratory status seems to be stabilized. He continues to be monitored by Dr. Gandara. She will continue to consult, but has requested that we take primary responsibility for the patient. He can probably leave the ICU soon. (3) Pancytopenia Status: Acute Response to Treatment: Worse Discussed With: Patient Problem Specific Plan: Consult Specialist, Monitor Clinically, Repeat Labs Problem Text: 09/27 -- his platelets in particular remain low 09/25 Hgb down from 10.2 to 8.9, Plts have been trending down, currently at 27, were 47 yesterday. Eliquis stopped this morning. I have called and LM for call back from Dr Betancourt to discuss. He had been following the pt. Suggests check PT/PTT. Also platelet transfusion. PRBC ordered. Andexxa not available. Not clear if Kcentra would be useful in this setting. (4) Mesothelioma Status: Acute Response to Treatment: Progressing Discussed With: Nurse, Configuration Management Analyst, Patient, Family with Pt Consent Problem Specific Plan: Monitor Clinically Problem Text: 09/25 LM for call back from Dr Betancourt to report decline in plts and hgb. Discussed poor prognosis and recommended to and Sister that they institute DNR order. 09/24 WBC cont to trend upward, plt cont to trend down. 09/23: WBC improved. platelets down today. Not eating, albumin low so he is malnourished. Dr. Betancourt has recommended TPN until he can resume po intake. Should have PICC today then can start TPN. Hopefully this will be a temporary measure so Tube feeding not recommended at this point. 09/22: WBC down, Dr. Betancourt has recommended single dose of neupogen. Dr. Hsieh is professional organizer for oncology today; his primary oncologist is Dr. Betancourt. He has locally advanced clinical stage IV, T4N2M1 malignant mesothelioma of the plura. He is day five after cisplatin/pemetrexed/bevacizumab. Per Dr. Hsieh this is often the worst day for patients. He clearly has some respiratory and cardiac toxicity related to this combination. The question is whether he will recover well enough to be able to have his next round in 3-4 weeks. This question doesn't seem to be answered yet. (5) Chemotherapy-induced cardiomyopathy Status: Acute Response to Treatment: Stable Discussed With: Configuration Management Analyst, Patient, Family with Pt Consent Problem Specific Plan: Monitor Clinically Problem Text: 09/25: more tachy today. response to GI blood loss and dropping pressure. 09/21: tachycardia thought to be compensatory mechanism so no rate lowering agents on board. I spoke with Dr. Richter about this patient. He feels that there is cardiotoxicity to the regimen, but there is nothing that he can do to improve t his. It doesn't seem to be of coronary arterial origin. He will continue to monitor the patient with us, but may not be putting in daily notes. (6) GI bleed Status: Acute Problem Text: 09/27 -- This appears to be slowing; last BM late yesterday afternoon. I transfused him a 4th unit of PRBCs today. He hasn't really been well enough to schedule for endoscopy, in the setting of a resolving bleed. However, if he improves and wants aggressive treatment, we probably should consult surgery for scopes. Discussed this with patient and his today. (7) Tachycardia Status: Chronic Response to Treatment: Stable Problem Specific Plan: Monitor Clinically Problem Text: Per the patient his tachycardia has been present even before the chemotherapy. Dr. Richter is of the opinion that it is physiologic tachycardia related to hypoxemia and his mesothelioma. He does not suggest we do anything to slow the heart rate down since this will be eliminating his ability to compensate. His TSH was checked and is WNL. (8) Pulmonary embolism Status: Acute Response to Treatment: Stable Problem Specific Plan: Monitor Clinically Problem Text: 09/25 eliquis stopped today d/t Hgb and plts dropping. 09/21: since no invasive procedure is anticipated, will d/c Lovenox and resume Eliquis 5 bid. He was dx with a PE in 07/2019. He is on full tx doses of Lovenox. This certainly could contribute to his tachycardia. (9) Pleural effusion on left Status: Chronic Response to Treatment: Stable Problem Specific Plan: Monitor Clinically Problem Text: 09/22: will repeat cXR in am. This has been present since at least 2016. Dr. Gandara has considered draining it to see if it helps with his respiratory status, but since he is improving without the procedure we will defer that for now. (10) Chemotherapy induced neutropenia Status: Resolved Response to Treatment: Improving Problem Specific Plan: Consult Specialist Problem Text: WBC 1500, ANC about 1100. Will need Granulocyte stimulating factor. Dr. Betancourt contacted. (11) Diarrhea Status: Resolved Discussed With: Nurse Problem Text: check GI panel and Hemoccult. (12) Stomatitis and mucositis Status: Acute Problem Text: 09/25 suspect mucositis more diffusely than mouth only and may be responsible for source of GI blood loss. With white plaques c/w thrush. Not much on lips but extensive shallow red lesions on tongue and mucosa, pharynx. Plan/VTE VTE Prophylaxis Ordered?: Yes (tx doses of Lovenox) Plan Activity: Advance (the primary thing he seems to need today is strengthening. He may be within a couple days of discharge with home P/T. Alternatively he may need ARU or SNF if he doesn't bounce back quickly.) Therapy: PT, OT Advance Directives: Other Advance Directive (09/25: reviewed this question again with and sister. No change in status at this time. I had a conversation with him about his advanced directives. He wishes to be FULL CODE. He does not want to be kept alive on life sustaining treatment if he does have to be coded. His (and HCP) knows his wishes and will help us if we need to understand what he would want.) VS, I&O, 24H, Fishbone Vital Signs/I&O Vital Signs Date Time Temp Pulse Resp B/P (MAP) Pulse Ox O2 Delivery O2 Flow Rate FiO2 09/27/19 13:22 97.4 115 28 138/89 (105) 95 High Flow Cannula 6.0 09/26/19 07:52 31 I&O- Last 24 Hours up to 6 AM 09/27/19 06:00 Intake Total 2430 ml Output Total 1250 ml Balance 1180 ml Laboratory Data 24H LABS Laboratory Tests 2 09/26/19 18:13: Bedside Glucose (Misc Panel) 102 09/26/19 23:11: Bedside Glucose (Misc Panel) 128H 09/27/19 06:18: Immature Granulocyte % (Auto) , Neutrophils # (Auto) , Lymphocytes # (Auto) , Nucleated Red Blood Cells % (auto) 0.0, Neutrophils 78H, Lymphocytes (Manual) 15L, Monocytes (Manual) 7H, Anisocytosis 1+, Toxic Granulation 1+, Platelet Est imate MARKED DECREASE, Immature Platelet Fraction 3.1, Anion Gap 3L, Glomerular Filtration Rate > 60.0, Calcium Level 8.2L, Phosphorus Level 3.8, Magnesium Level 1.5L, Total Bilirubin 0.4, Aspartate Amino Transf (AST/SGOT) 32, Alanine Aminotransferase (ALT/SGPT) 24, Alkaline Phosphatase 112, Lactate Dehydrogenase 185, Total Creatine Kinase 38L, Total Protein 4.5L, Albumin 1.6L, Albumin/Globulin Ratio 0.55L, Triglycerides Level 91, Cholesterol Level 104 09/27/19 06:22: Bedside Glucose (Misc Panel) 122H 09/27/19 12:18: Bedside Glucose (Misc Panel) 98 CBC/BMP Laboratory Tests 09/27/19 06:18 Microbiology Microbiology 09/25/19 Stool Occult Blood (KRZYSZTOF) - Final, Complete 09/22/19 Stool Occult Blood (KRZYSZTOF) - Final, Complete 09/18/19 Blood Culture - Final, Complete NO GROWTH AFTER 5 DAYS 09/18/19 Blood Culture - Final, Complete NO GROWTH AFTER 5 DAYS 09/18/19 Respiratory Virus Panel (PCR) (KRZYSZTOF) - Final, Complete HARRY GODOY DO Sep 27, 2019 15:41
[2019-09-27] MEDS ORDERED: AMINO AC/ELECTROLYTE/DEX/CALC 2,000 ML IV SCH (18:00)
[2019-09-27] MEDS ORDERED: FAT EMULSION IV 20% 500 ML IV SCH (18:00)
[2019-09-27] MEDS: TAMSULOSIN 0.4 MG CAP PO SCH (20:52)
[2019-09-28] VITALS (9 sets, daily range): BP systolic 122–158; BP diastolic 70–89; O2SAT 93–97
[2019-09-28] MEDS ORDERED: hydrOXYzine 25 MG TAB PO ONE
[2019-09-28] MEDS: HumaLOG INSULIN (NovoLOG) PER UNIT SC SCH ×5 (00:28→23:36)
[2019-09-28 05:05] LABS: EOS % 1.3 % (0.0-3.0); HEMATOCRIT 26.6 % (42.0-52.0); HEMOGLOBIN 8.3 g/dl (13.5-17.5); LYMPH % 18.2 % (24.0-44.0); MEAN CORPUSCULAR HGB CONC 31.2 g/dl (32.0-36.5); MEAN CORPUSCULAR VOLUME 83.4 fl (80.0-96.0); MONO # 0.1 10^3/uL (0.0-0.8); MONO % 15.6 % (0.0-5.0); NEUTROPHILS % 64.9 % (36.0-66.0); RED BLOOD COUNT 3.19 10^6/uL (4.30-6.10)
[2019-09-28 05:08] LABS: LYMPH # 0.1 10^3/uL (1.5-5.0); NEUTROPHILS # 0.5 10^3/uL (1.5-8.5); PLATELET COUNT, AUTOMATED 30 10^3/uL (150-450); WHITE BLOOD COUNT 0.8 10^3/uL (4.0-10.0)
[2019-09-28 05:29] LABS: ALBUMIN 1.6 GM/DL (3.2-5.2); ALT/SGPT 24 U/L (12-78); BILIRUBIN,TOTAL 0.5 MG/DL (0.2-1.0); BLOOD UREA NITROGEN 42 MG/DL (7-18); CALCIUM LEVEL 7.7 MG/DL (8.8-10.2); CARBON DIOXIDE LEVEL 38 MEQ/L (21-32); CHLORIDE LEVEL 103 MEQ/L (98-107); CHOLESTEROL LEVEL 119 MG/DL (< 200); CPK CREATINE PHOSPHOKINASE 33 U/L (39-308); CREATININE FOR GFR 0.52 MG/DL (0.70-1.30); GLOMERULAR FILTRATION RATE > 60.0 (>49); GLUCOSE, FASTING 126 MG/DL (70-100); LDH LACTATE DEHYDROGENASE 193 U/L (87-241); MAGNESIUM LEVEL 1.7 MG/DL (1.8-2.4); PHOSPHORUS LEVEL 4.2 MG/DL (2.5-4.9); POTASSIUM SERUM 4.1 MEQ/L (3.5-5.1); SODIUM LEVEL 143 MEQ/L (136-145); TOTAL PROTEIN 4.2 GM/DL (6.4-8.2); TRIGLYCERIDES LEVEL 88 MG/DL (<150)
[2019-09-28] MEDS: NYSTATIN 500,000 U/5 ML SUSP UDC SS SCH ×4 (06:00→19:44)
[2019-09-28] MEDS: SODIUM CHLORIDE 0.9% INJ 10 ML SYR IV SCH ×2 (06:16→17:52)
[2019-09-28] MEDS: IPRATROPIUM 0.5MG/ALBUTEROL 2.5MG INH SOL UD 3ML (DUONEB)(J7620) NEB SCH ×4 (07:10→18:20)
[2019-09-28] MEDS: SERTRALINE HCL 25 MG TABLET PO SCH (08:46)
[2019-09-28] MEDS: CYANOCOBALAMIN 500 MCG TAB PO SCH (08:46)
[2019-09-28] MEDS: PANTOPRAZOLE 40MG INJ (PROTONIX) (C9113) IV SCH ×2 (08:46→20:45)
[2019-09-28] MEDS: FOLIC ACID 1 MG TAB PO SCH (08:47)
--- NOTE | 2019-09-28 09:55 | IPNPDOC ---
Subjective Date Seen The patient was seen on 09/28/19. Subjective Chief Complaint/HPI This morning the pts is at bedside. They have been discussing the patients wishes. He has had intermittent episodes of SOB over the weekend, these are quite distressing to him. He is fearful of what another round of chemo will be like for him and doesn't want to proceed, he understands that this will mean he will pass as a result at some point. He and his are requesting a Hospice consult. She is hoping to bring him home, but admits that she has very limited support to care for him. General: Reports: Fatigue Constitutional: Denies: Chills, Fever ENT: Denies: Head Aches Pulmonary: Reports: Dyspnea, Cough Cardiovascular: Denies: Chest Pain, Palpitations Gastrointestinal: Denies: Nausea, Vomiting, Abdominal Pain Neurological: Reports: Weakness Psych: Reports: Mood Normal Objective Physical Examination General Exam: Positive: Alert, Cooperative, No Acute Distress ENT Exam: Positive: Mucous membr. moist/pink, Other ENT (ulcers in mouth) Neck Exam: Positive: Supple, JVD Chest Exam: Positive: Diminished Heart Exam: Positive: Tachycardic, Normal S1, Normal S2 Telemetry: Positive: Tachycardia Abdomen Exam: Positive: Normal bowel sounds, Soft, Other; Negative: Tenderness Extremity Exam: Positive: Edema (BUE and pedally) Skin Exam: Positive: Nl turgor and temperature Neuro Exam: Positive: Other Psych Exam: Positive: Anxiety, Oriented x 3; Negative: Mood NL Assessment /Plan Problems (1) Respiratory failure, acute and chronic Problem Text: 09/28 Pt and his requsting Hospice consult, it has been placed and PFS and nursing are aware. 09/27 -- Hypoxemic respiratory failure. He has required supplemental oxygen in the ICU, worsening last night, and now returning to baseline. I ordered a CT angio of the chest now that his oxygen needs were more manageable, and it did not show a PE, though it did show ground glass and interstitial lung disease, thought to be consistent with inflammation vs lymphangitic spread . 09/26 -- sudden respiratory distress, appears to have partially cleared a mucus plug, cough suppressant and guaifenesin ordered (2) Acute respiratory acidosis Response to Treatment: Stable, Compensated Discussed With: Nurse, Assistant Corporate Secretary, Patient, Family with Pt Consent Problem Specific Plan: Monitor Clinically, Repeat Tests Problem Text: 09/25 increased resp compromise this morning, CXR looks wet so, Lasix 20 mg IV x 1 ordered, monitor. Pt recently with increased fluid intake d/t TPN. Subsequently however, GI bleeding ensued, creating acute volume loss, so NS bolus required. 09/24 resp status stable. 09/23: CXR stable. 09/22: still in ICU due to bed availability. 09/21: to PCU today. Very easily fatigued. Still has poor aeration in left base. CXR shows interstitial changes in right lung ervin as well, maybe a little less prominent than on admission and maybe minimal aeration in left compared to admission. His respiratory status seems to be stabilized. He continues to be monitored by Dr. Gandara. She will continue to consult, but has requested that we take primary responsibility for the patient. He can probably leave the ICU soon. (3) Pancytopenia Status: Acute Response to Treatment: Worse Discussed With: Patient Problem Specific Plan: Consult Specialist, Monitor Clinically, Repeat Labs Problem Text: 09/28 Hgb and platelets are slightly higher today, WBC is trending down again. Hospice consulted. 09/27 -- his platelets in particular remain low 09/25 Hgb down from 10.2 to 8.9, Plts have been trending down, currently at 27, were 47 yesterday. Eliquis stopped this morning. I have called and LM for call back from Dr Betancourt to discuss. He had been following the pt. Suggests check PT/PTT. Also platelet transfusion. PRBC ordered. Andexxa not available. Not clear if Kcentra would be useful in this setting. (4) Mesothelioma Status: Acute Response to Treatment: Progressing Discussed With: Nurse, Assistant Corporate Secretary, Patient, Family with Pt Consent Problem Specific Plan: Monitor Clinically Problem Text: 09/25 LM for call back from Dr Betancourt to report decline in plts and hgb. Discussed poor prognosis and recommended to and Sister that they institute DNR order. 09/24 WBC cont to trend upward, plt cont to trend down. 09/23: WBC improved. platelets down today. Not eating, albumin low so he is malnourished. Dr. Betancourt has recommended TPN until he can resume po intake. Should have PICC today then can start TPN. Hopefully this will be a temporary measure so Tube feeding not recommended at this point. 09/22: WBC down, Dr. Betancourt has recommended single dose of neupogen. Dr. Hsieh is motor room controller for oncology today; his primary oncologist is Dr. Betancourt. He has locally advanced clinical stage IV, T4N2M1 malignant mesothelioma of the plura. He is day five after cisplatin/pemetrexed/bevacizumab. Per Dr. Hsieh this is often the worst day for patients. He clearly has some respiratory and cardiac toxicity related to this combination. The question is whether he will recover well enough to be able to have his next round in 3-4 weeks. This question doesn' t seem to be answered yet. (5) Chemotherapy-induced cardiomyopathy Status: Acute Response to Treatment: Stable Discussed With: Assistant Corporate Secretary, Patient, Family with Pt Consent Problem Specific Plan: Monitor Clinically Problem Text: 09/25: more tachy today. response to GI blood loss and dropping pressure. 09/21: tachycardia thought to be compensatory mechanism so no rate lowering agents on board. I spoke with Dr. Richter about this patient. He feels that there is card iotoxicity to the regimen, but there is nothing that he can do to improve this. It doesn't seem to be of coronary arterial origin. He will continue to monitor the patient with us, but may not be putting in daily notes. (6) GI bleed Status: Acute Problem Text: 09/28 no BM since 09/26. 09/27 -- This appears to be slowing; last BM late yesterday afternoon. I transfused him a 4th unit of PRBCs today. He hasn't really been well enough to schedule for endoscopy, in the setting of a resolving bleed. However, if he improves and wants aggressive treatment, we probably should consult surgery for scopes. Discussed this with patient and his today. (7) Tachycardia Status: Chronic Response to Treatment: Stable Problem Specific Plan: Monitor Clinically Problem Text: Per the patient his tachycardia has been present even before the chemotherapy. Dr. Richter is of the opinion that it is physiologic tachycardia related to hypoxemia and his mesothelioma. He does not suggest we do anything to slow the heart rate down since this will be eliminating his ability to compensate. His TSH was checked and is WNL. (8) Pulmonary embolism Status: Acute Response to Treatment: Stable Problem Specific Plan: Monitor Clinically Problem Text: 09/25 eliquis stopped today d/t Hgb and plts dropping. 09/21: since no invasive procedure is anticipated, will d/c Lovenox and resume Eliquis 5 bid. He was dx with a PE in 07/2019. He is on full tx doses of Lovenox. This certainly could contribute to his tachycardia. (9) Pleural effusion on left Status: Chronic Response to Treatment: Stable Problem Specific Plan: Monitor Clinically Problem Text: 09/22: will repeat cXR in am. This has been present since at least 2016. Dr. Gandara has considered draining it to see if it helps with his respiratory status, but since he is improving without the procedure we will defer that for now. (10) Chemotherapy induced neutropenia Status: Resolved Response to Treatment: Improving Problem Specific Plan: Consult Specialist Problem Text: WBC 1500, ANC about 1100. Will need Granulocyte stimulating factor. Dr. Betancourt contacted. (11) Diarrhea Status: Resolved Discussed With: Nurse Problem Text: check GI panel and Hemoccult. (12) Stomatitis and mucositis Status: Acute Problem Text: 09/25 suspect mucositis more diffusely than mouth only and may be responsible for source of GI blood loss. With white plaques c/w thrush. Not much on lips but extensive shallow red lesions on tongue and mucosa, pharynx. (13) Encounter for hospice care discussion Problem Text: 09/28 -- Discussed goals of care with patient, and sister at bedside. They agree that they would like hospice care for the patient, and have been in contact with them. They are leaning towards the hospice residence, as his does not think that she could take care of him at home by herself, and on a day to day basis, she would be. They have practical concerns, but don't disagree on the goals of care. 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 Plan/VTE VTE Prophylaxis Ordered?: Yes (tx doses of Lovenox) Plan Activity: Advance (the primary thing he seems to need today is strengthening. He may be within a couple days of discharge with home P/T. Alternatively he may need ARU or SNF if he doesn't bounce back quickly.) Therapy: PT, OT Advance Directives: Other Advance Directive (09/25: reviewed this question again with and sister. No change in status at this time. I had a conversation with him about his advanced directives. He wishes to be FULL CODE. He does not want to be kept alive on life sustaining treatment if he does have to be coded. His (and HCP) knows his wishes and will help us if we need to understand what he would want.) VS, I&O, 24H, [place] Vital Signs/I&O Vital Signs Date Time Temp Pulse Resp B/P (MAP) Pulse Ox O2 Delivery O2 Flow Rate FiO2 09/28/19 08:00 96.4 119 22 148/82 (104) 98 High Flow Cannula 10.0 09/26/19 07:52 31 I&O- Last 24 Hours up to 6 AM 09/28/19 06:00 Intake Total 2010 ml Output Total 725 ml Balance 1285 ml Laboratory Data 24H LABS Laboratory Tests 2 09/27/19 12:18: Bedside Glucose (Misc Panel) 98 09/27/19 17:40: Bedside Glucose (Misc Panel) 125H 09/28/19 00:19: Bedside Glucose (Misc Panel) 140H 09/28/19 04:37: Immature Granulocyte % (Auto) 0.0, Neutrophils (%) (Auto) 64.9, Lymphocytes (%) (Auto) 18.2L, Monocytes (%) (Auto) 15.6H, Eosinophils (%) (Auto) 1.3, Basophils (%) (Auto) 0.0, Neutrophils # (Auto) 0.5L, Lymphocytes # (Auto) 0.1L, Monocytes # (Auto) 0.1, Eosinophils # (Auto) 0.0, Basophils # (Auto) 0.0, Nucleated Red Blood Cells % (auto) 0.0, Anion Gap 2L, Glomerular Filtration Rate > 60.0, Calcium Level 7.7L, Phosphorus Level 4.2, Magnesium Level 1.7L, Total Bilirubin 0.5, Aspartate Amino Transf (AST/SGOT) 30, Alanine Aminotransferase (ALT/SGPT) 24, Alkaline Phosphatase 123H, Lactate Dehydrogenase 193, Total Creatine Kinase 33L, Total Protein 4.2L, Albumin 1.6L, Albumin/Globulin Ratio 0.62L, Triglycerides Level 88, Cholesterol Level 119 09/28/19 06:10: Bedside Glucose (Misc Panel) 125H CBC/BMP Laboratory Tests 09/28/19 04:37 Microbiology Microbiology 09/25/19 Stool Occult Blood (KRZYSZTOF) - Final, Complete 09/22/19 Stool Occult Blood (KRZYSZTOF) - Final, Complete 09/18/19 Blood Culture - Final, Complete NO GROWTH AFTER 5 DAYS 09/18/19 Blood Culture - Final, Complete NO GROWTH AFTER 5 DAYS 09/18/19 Respiratory Virus Panel (PCR) (KRZYSZTOF) - Final, Complete ERIC MARTI PA-C Sep 28, 2019 09:55 HARRY GODOY DO Sep 29, 2019 01:33
[2019-09-28] MEDS: ALBUTEROL SULFATE 2.5 MG/0.5 ML INH NEB SOLN NEB PRN (14:16)
[2019-09-28] MEDS ORDERED: FAT EMULSION IV 20% 500 ML IV SCH (18:00)
[2019-09-28] MEDS ORDERED: MULTIVITAMIN -ADULT INJECTION 10 ML, CR/CU/SE/MN/ZN INJ 1 ML in AMINO AC/ELECTROLYTE/DE... IV SCH (18:00)
[2019-09-28] MEDS: TAMSULOSIN 0.4 MG CAP PO SCH (20:45)
[2019-09-28] MEDS ORDERED: diphenhydrAMINE 25 MG CAP PO ONE (22:30)
[2019-09-29] VITALS (16 sets, daily range): BP systolic 134–156; BP diastolic 81–93; O2SAT 89–100
[2019-09-29] MEDS: SODIUM CHLORIDE 0.9% INJ 10 ML SYR IV SCH ×2 (04:36→16:29)
[2019-09-29] MEDS: NYSTATIN 500,000 U/5 ML SUSP UDC SS SCH ×3 (04:36→16:29)
[2019-09-29 05:31] LABS: EOS % 1.7 % (0.0-3.0); HEMATOCRIT 24.4 % (42.0-52.0); HEMOGLOBIN 7.5 g/dl (13.5-17.5); MEAN CORPUSCULAR HGB CONC 30.7 g/dl (32.0-36.5); MEAN CORPUSCULAR VOLUME 84.4 fl (80.0-96.0); MONO # 0.1 10^3/uL (0.0-0.8); MONO % 15.3 % (0.0-5.0); RED BLOOD COUNT 2.89 10^6/uL (4.30-6.10)
[2019-09-29 05:34] LABS: LYMPH # 0.1 10^3/uL (1.5-5.0); NEUTROPHILS # 0.4 10^3/uL (1.5-8.5); PLATELET COUNT, AUTOMATED 42 10^3/uL (150-450); WHITE BLOOD COUNT 0.6 10^3/uL (4.0-10.0)
[2019-09-29 06:02] LABS: ALBUMIN 1.4 GM/DL (3.2-5.2); ALT/SGPT 23 U/L (12-78); BILIRUBIN,TOTAL 0.7 MG/DL (0.2-1.0); BLOOD UREA NITROGEN 37 MG/DL (7-18); CALCIUM LEVEL 8.8 MG/DL (8.8-10.2); CARBON DIOXIDE LEVEL 38 MEQ/L (21-32); CHLORIDE LEVEL 100 MEQ/L (98-107); CHOLESTEROL LEVEL 115 MG/DL (< 200); CPK CREATINE PHOSPHOKINASE 24 U/L (39-308); CREATININE FOR GFR 0.52 MG/DL (0.70-1.30); GLOMERULAR FILTRATION RATE > 60.0 (>49); GLUCOSE, FASTING 128 MG/DL (70-100); LDH LACTATE DEHYDROGENASE 194 U/L (87-241); MAGNESIUM LEVEL 1.5 MG/DL (1.8-2.4); PHOSPHORUS LEVEL 4.1 MG/DL (2.5-4.9); SODIUM LEVEL 140 MEQ/L (136-145); TRIGLYCERIDES LEVEL 83 MG/DL (<150)
[2019-09-29] MEDS: ALBUTEROL SULFATE 2.5 MG/0.5 ML INH NEB SOLN NEB PRN (06:10)
[2019-09-29] MEDS: HumaLOG INSULIN (NovoLOG) PER UNIT SC SCH (06:17)
[2019-09-29] MEDS: IPRATROPIUM 0.5MG/ALBUTEROL 2.5MG INH SOL UD 3ML (DUONEB)(J7620) NEB SCH ×4 (07:16→18:17)
[2019-09-29] MEDS: SERTRALINE HCL 25 MG TABLET PO SCH (08:42)
[2019-09-29] MEDS: FOLIC ACID 1 MG TAB PO SCH (08:42)
[2019-09-29] MEDS: CYANOCOBALAMIN 500 MCG TAB PO SCH (08:42)
[2019-09-29] MEDS: PANTOPRAZOLE 40MG INJ (PROTONIX) (C9113) IV SCH ×2 (09:14→20:33)
--- NOTE | 2019-09-29 09:31 | IPNPDOC ---
Subjective Date Seen The patient was seen on 09/29/19. Subjective Chief Complaint/HPI More SOB this am with sats in mid 80s on 8L requiring switch to VM but still unable to get sats above 90. Constitutional: Denies: Chills, Fever Pulmonary: Reports: Dyspnea, Cough Cardiovascular: Denies: Chest Pain Gastrointestinal: Denies: Nausea, Vomiting, Abdominal Pain, Diarrhea, Constipation, Hematochezia Genitourinary: Denies: Hematuria Objective Physical Examination General Exam: Positive: Alert, Mild Distress (breathing labored this am.) ENT Exam: Positive: Mucous membr. moist/pink, Other ENT (ulcers in mouth) Neck Exam: Positive: Supple, JVD Chest Exam: Positive: Diminished Heart Exam: Positive: Tachycardic, Normal S1, Normal S2 Telemetry: Positive: Tachycardia Abdomen Exam: Positive: Normal bowel sounds, Soft, Other; Negative: Tenderness Extremity Exam: Positive: Edema (BUE and pedally) Skin Exam: Positive: Nl turgor and temperature Neuro Exam: Positive: Other Psych Exam: Positive: Anxiety, Oriented x 3; Negative: Mood NL Assessment /Plan Assessment CDT: agree with below. Patient is now FISCAL ANALYST status. Problems (1) Respiratory failure, acute and chronic Problem Text: 09/29 - Sudden decline in saturation this am - perhaps related to anemia vs fluid overload. Respiratory will try to improve oxygenation this am, but we will run into trouble pushing oxygen in patient with hypercapnea. Responded to IV lasix the other day, so I will give additional one time dose this am to see if this helps CT showing increased infiltrates - Hospice consulted - may need to initiate comfort measures to prevent labored breathing Patient is DNR/DNI Addendum: 10:50 am - Resp status continues to remain poor. Showing signs of CO2 retention on NRB. Agitated pulling mask off. I spoke with who wishes to pursue FISCAL ANALYST. MOLST completed. SHe is also requesting d/c of TPN. 09/28 Pt and his requsting Hospice consult, it has been placed and PFS and nursing are aware. 09/27 -- Hypoxemic respiratory failure. He has required supplemental oxygen in the ICU, worsening last night, and now returning to baseline. I ordered a CT angio of the chest now that his oxygen needs were more manageable, and it did not show a PE, though it did show ground glass and interstitial lung disease, thought to be consistent with inflammation vs lymphangitic spread . 09/26 -- sudden respiratory distress, appears to have partially cleared a mucus plug, cough suppressant and guaifenesin ordered (2) Acute respiratory acidosis Response to Treatment: Stable, Compensated Discussed With: Nurse, Supervisor Core Drilling, Patient, Family with Pt Consent Problem Specific Plan: Monitor Clinically, Repeat Tests Problem Text: 09/25 increased resp compromise this morning, CXR looks wet so, Lasix 20 mg IV x 1 ordered, monitor. Pt recently with increased fluid intake d/t TPN. Subsequently however, GI bleeding ensued, creating acute volume loss, so NS bolus required. 09/24 resp status stable. 09/23: CXR stable. 09/22: still in ICU due to bed availability. 09/21: to PCU today. Very easily fatigued. Still has poor aeration in left base. CXR shows interstitial changes in right lung ervin as well, maybe a little less prominent than on admission and maybe minimal aeration in left compared to admission. His respiratory status seems to be stabilized. He continues to be monitored by Dr. Gandara. She will continue to consult, but has requested that we take primary responsibility for the patient. He can probably leave the ICU soon. (3) Pancytopenia Status: Acute Response to Treatment: Worse Discussed With: Patient Problem Specific Plan: Consult Specialist, Monitor Clinically, Repeat Labs Problem Text: 09/29 - WBC down further, Hgb down further Platelets improved 09/28 Hgb and platelets are slightly higher today, WBC is trending down again. Hospice consulted. 09/27 -- his platelets in particular remain low 09/25 Hgb down from 10.2 to 8.9, Plts have been trending down, currently at 27, were 47 yesterday. Eliquis stopped this morning. I have called and LM for call back from Dr Betancourt to discuss. He had been following the pt. Suggests check PT/PTT. Also platelet transfusion. PRBC ordered. Andexxa not available. Not clear if Kcentra would be useful in this setting. (4) Mesothelioma Status: Acute Response to Treatment: Progressing Discussed With: Nurse, Supervisor Core Drilling, Patient, Family with Pt Consent Problem Specific Plan: Monitor Clinically Problem Text: 09/25 LM for call back from Dr Betancourt to report decline in plts and hgb. Discussed poor prognosis and recommended to and Sister that they institute DNR order. 09/24 WBC cont to trend upward, plt cont to trend down. 09/23: WBC improved. platelets down today. Not eating, albumin low so he is malnourished. Dr. Betancourt has recommended TPN until he can resume po intake. Should have PICC today then can start TPN. Hopefully this will be a temporary measure so Tube feeding not recommended at this point. 09/22: WBC down, Dr. Betancourt has recommended single dose of neupogen. Dr. Hsieh is tester electronic scale for oncology today; his primary oncologist is Dr. Betancourt. He has locally advanced clinical stage IV, T4N2M1 malignant mesothelioma of the plura. He is day five after cisplatin/pemetrexed/bevacizumab. Per Dr. Hsieh this is often the worst day for patients. He clearly has some respiratory and cardiac toxicity related to this combination. The question is whether he will recover well enough to be able to have his next round in 3-4 weeks. This question doesn't seem to be answered yet. (5) Chemotherapy-induced cardiomyopathy Status: Acute Response to Treatment: Stable Discussed With: Supervisor Core Drilling, Patient, Family with Pt Consent Problem Specific Plan: Monitor Clinically Problem Text: 09/25: more tachy today. response to GI blood loss and dropping pressure. 09/21: tachycardia thought to be compensatory mechanism so no rate lowering agents on board. I spoke with Dr. Richter about this patient. He feels that there is cardiotoxicity to the regimen, but there is nothing that he can do to improve this. It doesn't seem to be of coronary arterial origin. He will continue to monitor the patient with us, but may not be putting in daily notes. (6) GI bleed Status: Acute Problem Text: 09/28 no BM since 09/26. 09/27 -- This appears to be slowing; last BM late yesterday afternoon. I transfused him a 4th unit of PRBCs today. He hasn't really been well enough to schedule for endoscopy, in the setting of a resolving bleed. However, if he improves and wants aggressive treatment, we probably should consult surgery for scopes. Discussed this with patient and his today. (7) Tachycardia Status: Chronic Response to Treatment: Stable Problem Specific Plan: Monitor Clinically Problem Text: Per the patient his tachycardia has been present even before the chemotherapy. Dr. Richter is of the opinion that it is physiologic tachycardia related to hypoxemia and his mesothelioma. He does not suggest we do anything to slow the heart rate down since this will be eliminating his ability to compensate. His TSH was checked and is WNL. (8) Pulmonary embolism Status: Acute Response to Treatment: Stable Problem Specific Plan: Monitor Clinically Problem Text: 09/25 eliquis stopped today d/t Hgb and plts dropping. 09/21: since no invasive procedure is anticipated, will d/c Lovenox and resume El iquis 5 bid. He was dx with a PE in 07/2019. He is on full tx doses of Lovenox. This certainly could contribute to his tachycardia. (9) Pleural effusion on left Status: Chronic Response to Treatment: Stable Problem Specific Plan: Monitor Clinically Problem Text: 09/22: will repeat cXR in am. This has been present since at least 2016. Dr. Gandara has considered draining it to see if it helps with his respiratory status, but since he is improving without the procedure we will defer that for now. (10) Chemotherapy induced neutropenia Status: Resolved Response to Treatment: Improving Problem Specific Plan: Consult Specialist Problem Text: WBC 1500, ANC about 1100. Will need Granulocyte stimulating factor. Dr. Betancourt contacted. (11) Diarrhea Status: Resolved Discussed With: Nurse Problem Text: check GI panel and Hemoccult. (12) Stomatitis and mucositis Status: Acute Problem Text: 09/25 suspect mucositis more diffusely than mouth only and may be responsible for source of GI blood loss. With white plaques c/w thrush. Not much on lips but extensive shallow red lesions on tongue and mucosa, pharynx. (13) Encounter for hospice care discussion Problem Text: 09/29 -- now receiving FISCAL ANALYST care inpatient 09/28 -- Discussed goals of care with patient, and sister at bedside. They agree that they would like hospice care for the patient, and have been in conta ct with them. They are leaning towards the hospice residence, as his does not think that she could take care of him at home by herself, and on a day to day basis, she would be. They have practical concerns, but don't disagree on the goals of care. I offered to make him FISCAL ANALYST at this time, and he declines, states that he wants to talk to hospice. Plan/VTE VTE Prophylaxis Ordered?: No VTE Exclusion Pharmacological: Other (FISCAL ANALYST status) Plan Therapy: PT, OT Advance Directives: Other Advance Directive (FISCAL ANALYST orders placed) VS, I&O, 24H, Fishbone Vital Signs/I&O Vital Signs Date Time Temp Pulse Resp B/P (MAP) Pulse Ox O2 Delivery O2 Flow Rate FiO2 09/29/19 08:00 97.5 118 20 156/93 (114) 90 High Flow Cannula 8.0 09/26/19 07:52 31 I&O- Last 24 Hours up to 6 AM 09/29/19 06:00 Intake Total 900 ml Output Total 880 ml Balance 20 ml Laboratory Data 24H LABS Laboratory Tests 2 09/28/19 11:55: Bedside Glucose (Misc Panel) 106 09/28/19 17:06: Bedside Glucose (Misc Panel) 111 09/28/19 23:34: Bedside Glucose (Misc Panel) 121H 09/29/19 04:47: Immature Granulocyte % (Auto) 0.0, Neutrophils (%) (Auto) 61.0, Lymphocytes (%) (Auto) 22.0L, Monocytes (%) (Auto) 15.3H, Eosinophils (%) (Auto) 1.7, Basophils (%) (Auto) 0.0, Neutrophils # (Auto) 0.4L, Lymphocytes # (Auto) 0.1L, Monocytes # (Auto) 0.1, Eosinophils # (Auto) 0.0, Basophils # (Auto) 0.0, Nucleated Red Blood Cells % (auto) 0.0, Immature Platelet Fraction 4.5, Anion Gap 2L, Glomerular Filtration Rate > 60.0, Calcium Level 8.8, Phosphorus Level 4.1, Magnesium Level 1.5L, Total Bilirubin 0.7, Aspartate Amino Transf (AST/SGOT) 30, Alanine Aminotransferase (ALT/SGPT) 23, Alkaline Phosphatase 140H, Lactate Dehydrogenase 194, Total Creatine Kinase 24L, Total Protein 5.0L, Albumin 1.4L, Albumin/Globulin Ratio 0.39L, Triglycerides Level 83, Cholesterol Level 115 CBC/BMP Laboratory Tests 09/29/19 04:47 Microbiology Microbiology 09/25/19 Stool Occult Blood (KRZYSZTOF) - Final, Complete 09/22/19 Stool Occult Blood (KRZYSZTOF) - Final, Complete ED WILLINGHAM PA-C Sep 29, 2019 09:30 HARRY GODOY DO Sep 30, 2019 00:36
[2019-09-29] MEDS ORDERED: FUROSEMIDE 40 MG/4 ML VIAL (J1940) IV ONE (09:45)
[2019-09-29] MEDS ORDERED: LORazepam 1 MG TAB PO PRN (11:00)
[2019-09-29] MEDS ORDERED: HYOSCYAMINE SULFATE 0.125 MG SUBL TABLET PO PRN (11:00)
[2019-09-29] MEDS: LORazepam 2 MG/ML VIAL (J2060) IV PRN ×3 (11:51→21:18)
[2019-09-29] MEDS ORDERED: FAT EMULSION IV 20% 500 ML IV SCH (18:00)
[2019-09-29] MEDS ORDERED: HumaLOG INSULIN (NovoLOG) PER UNIT SC SCH (18:00)
[2019-09-29] MEDS ORDERED: AMINO AC/ELECTROLYTE/DEX/CALC 2,000 ML IV SCH (18:00)
[2019-09-29] MEDS: MORPHINE 2 MG/ML 1ML VIAL (J2270) IV PRN (20:16)
[2019-09-29] MEDS: TAMSULOSIN 0.4 MG CAP PO SCH (20:33)
[2019-09-30] MEDS: LORazepam 2 MG/ML VIAL (J2060) IV PRN ×2 (00:02→05:32)
[2019-09-30] MEDS: NYSTATIN 500,000 U/5 ML SUSP UDC SS SCH ×3 (05:38→11:11)
[2019-09-30] MEDS: SODIUM CHLORIDE 0.9% INJ 10 ML SYR IV SCH (05:38)
[2019-09-30] MEDS: SERTRALINE HCL 25 MG TABLET PO SCH (07:59)
[2019-09-30] MEDS: PANTOPRAZOLE 40MG INJ (PROTONIX) (C9113) IV SCH (08:00)
[2019-09-30] MEDS: IPRATROPIUM 0.5MG/ALBUTEROL 2.5MG INH SOL UD 3ML (DUONEB)(J7620) NEB SCH (08:00)
[2019-09-30] MEDS: MORPHINE 2 MG/ML 1ML VIAL (J2270) IV PRN ×2 (08:57→11:12)
--- NOTE | 2019-10-27 20:32 | DSES ---
DATE OF ADMISSION: 09/18/2019 DATE OF EXPIRATION: 09/30/2019 PRINCIPAL DIAGNOSIS: Acute on chronic respiratory failure. SECONDARY DIAGNOSES: Malignant pleural effusion secondary to locally advanced mesothelioma. Remote history of asbestos exposure. Pancytopenia secondary to chemotherapy. Chemotherapy-induced cardiomyopathy. Acute blood loss anemia secondary to gastrointestinal bleeding. History of recent pulmonary embolism. Chemotherapy-induced neutropenia. Stomatitis and mucositis secondary to chemotherapy. Antibiotic-associated diarrhea. HISTORY: Jethro Willis was admitted with acute on chronic respiratory failure. Details in history and physical on admission. HOSPITAL COURSE: The patient was admitted to an intensive care unit (ICU) bed, was seen in consultation by Dr. Gandara from the pulmonary service, Dr. Richter from the cardiology service. He was on noninvasive ventilatory management. Dr. Betancourt from oncology saw him as well. Despite aggressive efforts, which are well detailed in the medical record, the patient had progressive decline of pulmonary function. The patient's family decided to pursue comfort measures after he had repeated episodes of respiratory failure. He was seen by Hospice, but they did not feel that he would survive long enough to discharge into Hospice care. Once he went on comfort measures, he rapidly declined and on 09/30/2019. Labs, imaging studies, and consultations are all in the medical record and will not be repeated here.
== END 2019-09-30 12:10 | disposition expired | DRG 136 ==
LOC: EDBD 08:22 → M ED 08:22 → M ICU 10:47 → ENRESERVDT 11:02 → ENRESERVTM 11:02 → M MSPAV 09-23 14:49 → M ICU 09-25 10:18 → M PCU 09-25 14:33 → M ICU 09-25 14:36 → M PCU 09-27 13:10
PROVIDERS: ADMIT Internal Medicine Pulmonary Disease; ATTEND Family Medicine
PROC: 5A0935Z Assistance with Respiratory Ventilation, Less than 24 Consecutive Hours (ICD-10-PCS; 2019-09-18)
PROC: 02HV33Z Insertion of Infusion Device into Superior Vena Cava, Percutaneous Approach (ICD-10-PCS; principal; 2019-09-23 16:00)
PROC: 30233N1 Transfusion of Nonautologous Red Blood Cells into Peripheral Vein, Percutaneous Approach (ICD-10-PCS; 2019-09-26)
DX: C45.0 Mesothelioma of pleura (principal); J96.21 Acute and chronic respiratory failure with hypoxia; I26.99 Other pulmonary embolism without acute cor pulmonale; N17.9 Acute kidney failure, unspecified; D61.810 Antineoplastic chemotherapy induced pancytopenia; E46 Unspecified protein-calorie malnutrition; B37.0 Candidal stomatitis; C77.0 Secondary and unspecified malignant neoplasm of lymph nodes of head, face and neck; J96.22 Acute and chronic respiratory failure with hypercapnia; E87.2 Acidosis; I27.20 Pulmonary hypertension, unspecified; Z99.81 Dependence on supplemental oxygen; I42.7 Cardiomyopathy due to drug and external agent; L40.50 Arthropathic psoriasis, unspecified; K92.2 Gastrointestinal hemorrhage, unspecified; J90 Pleural effusion, not elsewhere classified; Z66 Do not resuscitate; Z51.5 Encounter for palliative care; Z79.01 Long term (current) use of anticoagulants; R63.4 Abnormal weight loss; N28.9 Disorder of kidney and ureter, unspecified; Z87.891 Personal history of nicotine dependence; N40.0 Benign prostatic hyperplasia without lower urinary tract symptoms; Z77.090 Contact with and (suspected) exposure to asbestos; Z79.82 Long term (current) use of aspirin; R00.0 Tachycardia, unspecified; T45.1X5A Adverse effect of antineoplastic and immunosuppressive drugs, initial encounter; D72.819 Decreased white blood cell count, unspecified; R19.7 Diarrhea, unspecified